=== PATIENT | male | born 1950 | race Caucasian/White ===

== ENCOUNTER 2017-02-03 20:57 | Inpatient (IN) ==
--- NOTE | 2017-02-03 21:16 | Emergency Department Note ---
START Narrative - START START: For this encounter, I have reviewed the resident, IT ADMIN, or PA documentation, treatment plan, and medical decision making; and I have had face to face time with this patient. History source: Patient is unable to provide information for this note. Info was gathered from the patient, hospital staff, the patient's chart. History limitations: Patient condition Medications: As per nurses note 66 yo male presents with SOB with worsening of SCHAFER x2 days. history of anemia with mulitple transfusions in the past which feels similar to today's symptoms. +jaundice on exam but family states skin color hasn't changed within the past couple weeks. No chest pain, cough, fever, diaphoresis, n/v/d. Does not take anticoagulant medications. No history of COPD or asthma. Pt unable to walk more than 10 feet without becoming short of breath. Previous IL had symptoms of diaphoresis and chest pain which he has not had in the past couple days. On physical exam pt had lungs CTAB, heart rate rrr without m/r/g. Pt anemic and has a significant history of cardiac disease, he will be admitted for further care and evaluation. No critical care during the care of this patient.
[2017-02-03 21:43] LABS: Basophils % 0.4 %; Eosinophils # 0.1 K/mcL (0.0-0.6); Eosinophils % 1.2 %; Hematocrit 24.4 % (37.5-50.1); Hemoglobin 7.9 g/dL (12.9-16.9); Immature Granulocytes % 0.7 % (0-4); Lymphocytes # 1.6 K/mcL (0.6-4.6); Lymphocytes % 28.7 %; Mean Corpuscular HGB Conc 32.4 g/dL (31.6-35.5); Mean Corpuscular Hemoglobin 35.4 pg (28.0-33.3); Mean Corpuscular Volume 109.4 fL (83.0-100.0); Monocytes # 0.5 K/mcL (0.0-1.3); Monocytes % 8.5 %; Neutrophils # 3.4 K/mcL (1.6-8.9); Nucleated Red Blood Cells 0.4 /100 WBC (0); Platelet Count 170 K/mcL (140-400); Red Blood Count 2.23 M/mcL (4.19-5.50); Red Cell Distribution Width 15.9 % (11.5-14.5); Segmented Neutrophils % 60.5 %
[2017-02-03 21:46] LABS: INR 1.2; Prothrombin Time 13.3 Seconds (9.4-12.1)
[2017-02-03 21:58] LABS: Alanine Aminotransferase 16 Units/L (0-55); Albumin 3.8 g/dL (3.5-5.0); Albumin/Globulin Ratio 1.1 (1.1-2.2); Alkaline Phosphatase 76 Units/L (38-126); Aspartate Amino Transferase 36 Units/L (5-34); BUN/Creatinine Ratio 19 (6-26); Bilirubin,Direct 0.6 mg/dL (0.0-0.5); Bilirubin,Indirect 3.3 mg/dL (0.0-1.2); Bilirubin,Total 3.9 mg/dL (0.2-1.2); Blood Urea Nitrogen 21 mg/dL (8-26); Calcium 8.7 mg/dL (8.6-10.8); Carbon Dioxide 22 mEq/L (19-29); Chloride 106 mEq/L (98-109); Globulin 3.6 g/dL (2.4-3.5); Glucose 96 mg/dL (70-99); Osmolality,Calculated 289 (280-300); Potassium 3.9 mEq/L (3.5-4.5); Sodium 138 mEq/L (136-145); Total Protein 7.4 g/dL (6.0-8.3); eGFR For African Americans > 60 (> 60); eGFR For Non-African Americans > 60 (> 60)
--- NOTE | 2017-02-03 22:02 | Emergency Department Note ---
Disposition Clinical Impression: Anemia Qualifiers: Anemia type: unspecified type Qualified Code(s): D64.9 - Anemia, unspecified Disposition: Home, Self-Care Condition: Good Time of Disposition: 01:08 General Adult HPI - General Chief complaint: ED Shortness of Breath/Dyspnea Stated complaint: SOB Time Seen by Provider: 02/03/17 21:02 Source: patient Limitations: no limitations Nursing Notes Reviewed: Yes Vital Signs Reviewed: Yes - History of Present Illness HPI Narrative: "Couple day history of shortness of breath when walking." Feeling dizzy when he gets out. States that he felt like this before whenever his hemoglobin was low. Denies any bleeding from anywhere. Pain Scale: 0 - Related Data Home Medications Medication Instructions Recorded Confirmed PHENobarbital [Phenobarbital] 32.4 mg PO QID 02/06/16 02/03/17 Ergocalciferol (VITAMIN D2) 50,000 unit PO FR 08/22/16 02/03/17 [Vitamin D2 (50,000 UNIT)] Metoprolol XL (24 HR) Succ [Toprol 25 mg PO DAILY 08/22/16 02/03/17 Xl] Famotidine [Famotidine] 40 mg PO DAILY 02/03/17 02/03/17 Folic Acid 1 mg PO DAILY 02/03/17 02/03/17 Lisinopril [Zestril] 5 mg PO DAILY 02/03/17 02/03/17 Nitroglycerin [Nitrostat] 0.4 mg SL Q5M PRN 02/03/17 02/03/17 Pravastatin Sodium [Pravachol] 40 mg PO HS 02/03/17 02/03/17 PredniSONE 20 mg PO DAILY 02/03/17 02/03/17 Sulfamethoxazole/Trimeth DS 1 each PO MOFR 02/03/17 02/03/17 [Bactrim DS] Temazepam [Restoril] 7.5 mg PO HS PRN 02/03/17 02/03/17 Valacyclovir [Valtrex] 500 mg PO DAILY 02/03/17 02/03/17 Previous Rx's Medication Instructions Recorded Aspirin 81 mg PO DAILY #30 tab.chew 08/16/16 Prochlorperazine Maleate 10 mg PO Q8HR PRN #0 tablet 08/28/16 [Compazine] Cyanocobalamin (Vitamin B-12) 1,000 mcg PO DAILY #30 tablet 11/04/16 [Vitamin B12] Levothyroxine [Synthroid] 50 mcg PO DAILY #30 tablet 02/03/17 Allergies Allergy/AdvReac Type Severity Reaction Status Date / Time phenytoin [From Dilantin] AdvReac Drowsy Verified 08/21/16 18:47 All systems ED: reviewed and negative except as stated. Constitutional: Denies: fever, chills Eyes: Denies: vision change ENT ED: Denies: congestion Cardiovascular: Denies: chest pain, palpitations, dyspnea on exertion, edema, syncope Respiratory: Denies: cough, dyspnea, wheezes Gastrointestinal: Denies: abdominal pain, nausea, vomiting, diarrhea Genitourinary: Denies: urgency, dysuria, frequency, hematuria Musculoskeletal: Denies: back pain, neck pain, arthralgia, myalgia Integumentary: Denies: rash, abrasion Neurological: Reports: weakness (For the past "couple days"). Denies: headache , vertigo Endocrine: Reports: fatigue Past Medical History - Past Medical History Medical history: Reports: coronary artery disease, hyperlipidemia, hypertension , myocardial infarction, seizures Surgical history: Reports: angioplasty/stent, appendectomy, cholecystectomy Psychiatric history: Reports: no psych history - Social History Smoking Status: Never smoker Smokeless Tobacco Status: No Alcohol use: Reports: none Drug use: Reports: none Physical Exam - General Limitations: no limitations General appearance: alert, in no apparent distress - Head Head exam: atraumatic, normocephalic, normal inspection - Eye Eye exam: Present: normal appearance, PERRL, EOMI, scleral icterus - ENT ENT exam: normal exam, normal oropharynx, mucous membranes moist - Neck Neck exam: Present: normal inspection, full ROM, trachea midline. Absent: tenderness, lymphadenopathy - Chest Chest inspection: Present: normal inspection, symmetric chest wall rise. Absent : tenderness - Respiratory Respiratory exam: Present: normal lung sounds bilaterally. Absent: respiratory distress - Cardiovascular Cardiovascular exam: Present: regular rate, normal rhythm, normal heart sounds - Abdominal Exam Abdominal exam: Present: soft, Non-Tender, normal bowel sounds. Absent: tenderness, distention, guarding, rebound, rigidity, organomegaly - Extremities Exam Extremities exam: Present: normal inspection, full ROM, normal capillary refill. Absent: tenderness, pedal edema - Back Exam Back exam: Present: normal inspection, full ROM. Absent: tenderness, CVA tenderness (R), CVA tenderness (L) - Neurological Exam Neurological exam: Present: alert, oriented X3, normal gait - Psychiatric Psychiatric exam: Present: normal affect, normal mood - Skin Skin exam: Present: warm, dry, intact, other (Patient jaundiced.) Course Course Narrative: Patient ambulated to room without assistance. He is jaundiced while resting in bed. He does not appear short of breath or in any distress. He states he has had a "couple day "history of feeling weak. He states he gets short of breath when he walks. States that he felt like this before whenever he is anemic. Unaware of what his anemia. However on inspection of his past medical history he has hemolytic anemia. This is why he is jaundiced. He has had several blood transfusions before the last one being a year ago. They state that he had a blood transfusion and then had to have some blood removed as well. If he has had hemochromatosis as well. Hemoglobin is 7.9. He is symptomatic with this. He denies any rectal bleeding or hematuria. He denies any hematemesis. He has no abdominal pain on exam. He is otherwise well-appearing. He has no complaints while resting in bed. We will admit Patient for a blood transfusion due to his symptomatic anemia. He is agreeable to this. - Consultations Consultation #1: Dr Chambers accepted Pt in stable condition. Time: 00:31 Vital Signs Temperature 98.0 F 02/03/17 20:58 Pulse Rate 84 02/03/17 20:58 Respiratory Rate 18 02/03/17 20:58 Blood Pressure 147/68 02/03/17 20:58 O2 Sat by Pulse Oximetry 100 02/03/17 20:58 Temperature 97.3 F L 02/04/17 01:35 Pulse Rate 73 02/04/17 01:35 Respiratory Rate 18 02/04/17 01:35 Blood Pressure 124/71 02/04/17 01:35 O2 Sat by Pulse Oximetry 96 02/04/17 01:35 Oxygen Delivery Oxygen Delivery Room Air Medical Decision Making - Medical Records Medical records reviewed: Yes I reviewed the patient's medical records. - Lab Data Lab results reviewed: Yes I reviewed the patient's lab results. Result diagrams: 02/03/17 21:35 02/03/17 21:35 Lab Results 02/03/17 02/03/17 02/03/17 Range/Units 21:35 21:35 21:35 WBC 5.7 (4.3-11.1) K/mcL RBC 2.23 L (4.19-5.50) M/mcL Hgb 7.9 L (12.9-16.9) g/dL Hct 24.4 L (37.5-50.1) % MCV 109.4 H (83.0-100.0) fL MCH 35.4 H (28.0-33.3) pg MCHC 32.4 (31.6-35.5) g/dL RDW 15.9 H (11.5-14.5) % Plt Count 170 (140-400) K/mcL MPV 9.0 L (9.4-12.4) fL Immature Gran % 0.7 (0-4) % Seg Neutrophils % 60.5 % Lymphocytes % 28.7 % Monocytes % 8.5 % Eosinophils % 1.2 % Basophils % 0.4 % Neutrophils # 3.4 (1.6-8.9) K/mcL Lymphocytes # 1.6 (0.6-4.6) K/mcL Monocytes # 0.5 (0.0-1.3) K/mcL Eosinophils # 0.1 (0.0-0.6) K/mcL Basophils # 0.0 (0.0-0.2) K/mcL Nucleated RBCs/100 WBC 0.4 H (0) /100 WBC PT (9.4-12.1) Seconds INR APTT (26.0-36.0) Seconds Sodium 138 (136-145) mEq/L Potassium 3.9 (3.5-4.5) mEq/L Chloride 106 (98-109) mEq/L Carbon Dioxide 22 (19-29) mEq/L BUN 21 (8-26) mg/dL Creatinine 1.11 (0.72-1.25) mg/dL Est GFR ( Amer) > 60 (> 60) Est GFR (Non-Af Amer) > 60 (> 60) BUN/Creatinine Ratio 19 (6-26) Glucose 96 (70-99) mg/dL Calculated Osmolality 289 (280-300) Calcium 8.7 (8.6-10.8) mg/dL Total Bilirubin 3.9 H (0.2-1.2) mg/dL Direct Bilirubin 0.6 H (0.0-0.5) mg/dL Indirect Bilirubin 3.3 H (0.0-1.2) mg/dL AST 36 H (5-34) Units/L ALT 16 (0-55) Units/L Alkaline Phosphatase 76 (38-126) Units/L Troponin I 0.00 (0-0.03) ng/mL B-Natriuretic Peptide (0-100) pg/mL Serum Total Protein 7.4 (6.0-8.3) g/dL Albumin 3.8 (3.5-5.0) g/dL Globulin 3.6 H (2.4-3.5) g/dL Albumin/Globulin Ratio 1.1 (1.1-2.2) Urine Color (Yellow) Urine Clarity (Clear) Urine pH (5.0-8.0) pH Units Ur Specific [place] (1.010-1.025) Urine Protein (Neg-Trace) mg/dL Urine Glucose (UA) (Normal) mg/dL Urine Ketones (Negative) mg/dL Urine Blood (Negative) Urine Nitrite (Negative) Urine Bilirubin (Negative) Urine Urobilinogen (Normal) mg/dL Ur Leukocyte Esterase (Negative) Urine Microscopic WBC (0-3) per hpf Ur Squamous Epith Cells (None-Few) per lpf Urine Bacteria (None-Few) per hpf Urine Mucus (Few) Ur Culture Indicated? (NO) Stool Occult Blood (Negative) 02/03/17 02/03/17 02/03/17 Range/Units 21:35 21:35 23:43 WBC (4.3-11.1) K/mcL RBC (4.19-5.50) M/mcL Hgb (12.9-16.9) g/dL Hct (37.5-50.1) % MCV (83.0-100.0) fL MCH (28.0-33.3) pg MCHC (31.6-35.5) g/dL RDW (11.5-14.5) % Plt Count (140-400) K/mcL MPV (9.4-12.4) fL Immature Gran % (0-4) % Seg Neutrophils % % Lymphocytes % % Monocytes % % Eosinophils % % Basophils % % Neutrophils # (1.6-8.9) K/mcL Lymphocytes # (0.6-4.6) K/mcL Monocytes # (0.0-1.3) K/mcL Eosinophils # (0.0-0.6) K/mcL Basophils # (0.0-0.2) K/mcL Nucleated RBCs/100 WBC (0) /100 WBC PT 13.3 H (9.4-12.1) Seconds INR 1.2 APTT 34.0 (26.0-36.0) Seconds Sodium (136-145) mEq/L Potassium (3.5-4.5) mEq/L Chloride (98-109) mEq/L Carbon Dioxide (19-29) mEq/L BUN (8-26) mg/dL Creatinine (0.72-1.25) mg/dL Est GFR ( Amer) (> 60) Est GFR (Non-Af Amer) (> 60) BUN/Creatinine Ratio (6-26) Glucose (70-99) mg/dL Calculated Osmolality (280-300) Calcium (8.6-10.8) mg/dL Total Bilirubin (0.2-1.2) mg/dL Direct Bilirubin (0.0-0.5) mg/dL Indirect Bilirubin (0.0-1.2) mg/dL AST (5-34) Units/L ALT (0-55) Units/L Alkaline Phosphatase (38-126) Units/L Troponin I (0-0.03) ng/mL B-Natriuretic Peptide 26 (0-100) pg/mL Serum Total Protein (6.0-8.3) g/dL Albumin (3.5-5.0) g/dL Globulin (2.4-3.5) g/dL Albumin/Globulin Ratio (1.1-2.2) Urine Color Yellow (Yellow) Urine Clarity Clear (Clear) Urine pH 5.5 (5.0-8.0) pH Units Ur Specific [place] 1.025 (1.010-1.025) Urine Protein 30 H (Neg-Trace) mg/dL Urine Glucose (UA) Normal (Normal) mg/dL Urine Ketones Negative (Negative) mg/dL Urine Blood Trace-lysed H (Negative) Urine Nitrite Positive A (Negative) Urine Bilirubin Small H (Negative) Urine Urobilinogen Normal (Normal) mg/dL Ur Leukocyte Esterase Negative (Negative) Urine Microscopic WBC 0-3 (0-3) per hpf Ur Squamous Epith Cells Few (None-Few) per lpf Urine Bacteria Moderate H (None-Few) per hpf Urine Mucus Few (Few) Ur Culture Indicated? YES A (NO) Stool Occult Blood (Negative) 02/04/17 Range/Units 00:31 WBC (4.3-11.1) K/mcL RBC (4.19-5.50) M/mcL Hgb (12.9-16.9) g/dL Hct (37.5-50.1) % MCV (83.0-100.0) fL MCH (28.0-33.3) pg MCHC (31.6-35.5) g/dL RDW (11.5-14.5) % Plt Count (140-400) K/mcL MPV (9.4-12.4) fL Immature Gran % (0-4) % Seg Neutrophils % % Lymphocytes % % Monocytes % % Eosinophils % % Basophils % % Neutrophils # (1.6-8.9) K/mcL Lymphocytes # (0.6-4.6) K/mcL Monocytes # (0.0-1.3) K/mcL Eosinophils # (0.0-0.6) K/mcL Basophils # (0.0-0.2) K/mcL Nucleated RBCs/100 WBC (0) /100 WBC PT (9.4-12.1) Seconds INR APTT (26.0-36.0) Seconds Sodium (136-145) mEq/L Potassium (3.5-4.5) mEq/L Chloride (98-109) mEq/L Carbon Dioxide (19-29) mEq/L BUN (8-26) mg/dL Creatinine (0.72-1.25) mg/dL Est GFR ( Amer) (> 60) Est GFR (Non-Af Amer) (> 60) BUN/Creatinine Ratio (6-26) Glucose (70-99) mg/dL Calculated Osmolality (280-300) Calcium (8.6-10.8) mg/dL Total Bilirubin (0.2-1.2) mg/dL Direct Bilirubin (0.0-0.5) mg/dL Indirect Bilirubin (0.0-1.2) mg/dL AST (5-34) Units/L ALT (0-55) Units/L Alkaline Phosphatase (38-126) Units/L Troponin I (0-0.03) ng/mL B-Natriuretic Peptide (0-100) pg/mL Serum Total Protein (6.0-8.3) g/dL Albumin (3.5-5.0) g/dL Globulin (2.4-3.5) g/dL Albumin/Globulin Ratio (1.1-2.2) Urine Color (Yellow) Urine Clarity (Clear) Urine pH (5.0-8.0) pH Units Ur Specific [place] (1.010-1.025) Urine Protein (Neg-Trace) mg/dL Urine Glucose (UA) (Normal) mg/dL Urine Ketones (Negative) mg/dL Urine Blood (Negative) Urine Nitrite (Negative) Urine Bilirubin (Negative) Urine Urobilinogen (Normal) mg/dL Ur Leukocyte Esterase (Negative) Urine Microscopic WBC (0-3) per hpf Ur Squamous Epith Cells (None-Few) per lpf Urine Bacteria (None-Few) per hpf Urine Mucus (Few) Ur Culture Indicated? (NO) Stool Occult Blood Negative (Negative)
[2017-02-03 23:54] LABS: Bilirubin,Urine Small (Negative); Blood,Urine Trace-lysed (Negative); Clarity,Urine Clear (Clear); Color,Urine Yellow (Yellow); Glucose,Urine (UA) Normal (Normal); Ketones,Urine Negative (Negative); Leukocyte Esterase,Urine Negative (Negative); Nitrite,Urine Positive (Negative); PH,Urine 5.5 pH Units (5.0-8.0); Protein,Urine 30 mg/dL (Neg-Trace); Specific Gravity,Urine 1.025 (1.010-1.025); Urobilinogen,Urine Normal (Normal)
[2017-02-04 00:19] LABS: Bacteria,Urine Moderate per hpf (None-Few); Mucus,Urine Few (Few); Squamous Epithelial Cell,Urine Few per lpf (None-Few); WBC,Urine 0-3 per hpf (0-3)
[2017-02-04] MEDS ORDERED: Naloxone 0.4 MG/ML INJ IVP PRN (05:47)
[2017-02-04] MEDS ORDERED: Nitroglycerin 0.4 MG TAB.SUBL SL PRN (05:51)
[2017-02-04] MEDS ORDERED: Temazepam 15 MG CAPSULE PO PRN (05:51)
--- NOTE | 2017-02-04 05:58 | Internal Med History&Physical ---
Date of Encounter: 02/04/17 Time of Encounter: 04:30 Assessment and Plan (1) UTI (urinary tract infection) Current visit: Yes Status: Acute Urinalysis is abnormal. Urine culture and blood cultures are pending. Empiric treatment with ceftriaxone. Change antibiotics based on sensitivities. Qualifiers: Urinary tract infection type: site unspecified Hematuria presence: without hematuria Qualified Code(s): N39.0 - Urinary tract infection, site not specified (2) Anemia Current visit: Yes Status: Acute Patient has history of autoimmune hemolytic anemia, which was refractory to prednisone and responded to Rituxan. No blood transfusion at this time. We will consult crop adjuster/oncologist for further advice. Continue his home dose of prednisone meanwhile. Qualifiers: Anemia type: acquired or hereditary hemolytic anemia Hemolytic anemia type : acquired, autoimmune, other Qualified Code(s): D59.1 - Other autoimmune hemolytic anemias (3) Autoimmune hemolytic anemia Current visit: Yes Status: Acute Patient has history of autoimmune hemolytic anemia, which was refractory to prednisone and responded to Rituxan. No blood transfusion at this time. We will consult crop adjuster/oncologist for further advice. Continue his home dose of prednisone meanwhile. We will check LDH and reticulocyte account. (4) CAD (coronary artery disease) Current visit: Yes Status: Chronic Qualifiers: Coronary Disease-Associated Artery/Lesion type: [place] artery [place] vs. transplanted heart: [place] heart Associated angina: without angina Qualified Code(s): I25.10 - Atherosclerotic heart disease of [place] coronary artery without angina pectoris (5) Shortness of breath Current visit: Yes Status: Acute Possibly due to anemia. Will check d-dimer to exclude pulmonary embolism. Chest x-ray is not significanlty abnormal. Internal Medicine - H&P: HPI Chief complaint: Shortness of breath Admitted From: Emergency Dept Plans for Post Hospital Care: Home History of present illness: Mr. 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 He presents to the emergency department with duct with a history of progressive shortness of breath. It was shortness of breath on minimal exertion. Denies any shortness of breath at rest. Denies chest pain, cough, expectation, fever, chills, nausea, vomiting, abdominal pain , dysuria, hematuria,, melena, hematochezia, hematemesis. He was evaluated in the emergency department and was noted to have hemoglobin of 7.9. He is admitted to Hospitalist service for further workup and management. Family history: Heart attack in his mother Past Med Surg Social Fam HX - Past Medical History Medical history: coronary artery disease, hyperlipidemia, hypertension, myocardial infarction, seizures Psychiatric history: no psych history - Past Surgical History Surgical History: angioplasty/stent, appendectomy, cholecystectomy - Social History Smoking Status: Never smoker Smokeless Tobacco Status: No Alcohol use: none Drug use: none - Family History Son Adopted: No Family Member Ethnicity: Non- Living Status: Still Living Hx Family Cardiac Disorders: Yes Hx Family Respiratory Disorders: No Hx Family Cancer: No Hx Family GI Disorders: Yes Hx Family Endocrine Disorder: Yes Hx Family Neuromuscular Disorders: No Hx Family Neurologic Disorders: No Hx Family HEENT Disorders: No Hx Family Autoimmune Disorders: No Mother Adopted: No Family Member Ethnicity: Non- Living Status: Hx Family Cardiac Disorders: Yes ([place]) Hx Family Respiratory Disorders: No Hx Family Cancer: Yes Hx Family GI Disorders: No Hx Family Endocrine Disorder: No Hx Family Neuromuscular Disorders: No Hx Family Neurologic Disorders: No Hx Family HEENT Disorders: No Hx Family Autoimmune Disorders: No Internal Medicine - H&P: Meds PHENobarbital [Phenobarbital] 32.4 mg PO QID 02/06/16 [History] Aspirin 81 mg PO DAILY #30 tab.chew 08/16/16 [Rx] Ergocalciferol (VITAMIN D2) [Vitamin D2 (50,000 UNIT)] 50,000 unit PO FR [History] Metoprolol XL (24 HR) Succ [Toprol Xl] 25 mg PO DAILY 08/22/16 [History] Prochlorperazine Maleate [Compazine] 10 mg PO Q8HR PRN #0 tablet 08/28/16 [Rx] Cyanocobalamin (Vitamin B-12) [Vitamin B12] 1,000 mcg PO DAILY #30 tablet [Rx] Famotidine [Famotidine] 40 mg PO DAILY 02/03/17 [History] Folic Acid 1 mg PO DAILY 02/03/17 [History] Levothyroxine [Synthroid] 50 mcg PO DAILY #30 tablet 02/03/17 [Rx] Lisinopril [Zestril] 5 mg PO DAILY 02/03/17 [History] Nitroglycerin [Nitrostat] 0.4 mg SL Q5M PRN 02/03/17 [History] Pravastatin Sodium [Pravachol] 40 mg PO HS 02/03/17 [History] PredniSONE 20 mg PO DAILY 02/03/17 [History] Sulfamethoxazole/Trimeth DS [Bactrim DS] 1 each PO MOFR 02/03/17 [History] Temazepam [Restoril] 7.5 mg PO HS PRN 02/03/17 [History] Valacyclovir [Valtrex] 500 mg PO DAILY 02/03/17 [History] Allergies phenytoin [From Dilantin] Adverse Reaction (Verified 08/21/16 18:47) Drowsy All Systems PM: A 10-system review of systems was performed and is negative for pertinent findings except as documented above in the HPI. - Constitutional Vitals: Temp Pulse Resp BP Pulse Ox 98.0 F 67 14 100/64 98 02/04/17 04:26 02/04/17 04:26 02/04/17 04:26 02/04/17 04:26 02/04/17 04:26 Exam: General: Not in acute distress at the time of my evaluation HEENT: Oral mucosa is moist. conjunctival palor present. No scleral icterus Neck: No obvious neck swellings Lungs: Clear to auscultation Cardiac: Regular rate and rhythm. Systolic murmur present Abdomen: Soft, non tender. Bowel sounds present Genitourinary: No miller catheter Neurological: Alert and oriented. No gross localizing deficits Psych: Not aggressive or agitated Extremities: no significant leg edema Skin: No generalized rash Internal Med - H&P Results - Labs CBC & Chem 7: 02/03/17 21:35 02/03/17 21:35 - EKG Data -: EKG Interpreted by Myself EKG shows normal: sinus rhythm Rate: normal - Impressions ITS Impressions Chest X-Ray 02/03/17 21:12 IMPRESSION: Stable cardiomegaly with mild perihilar vascular congestion without overt pulmonary edema. No other active cardiopulmonary disease. D/ / Kenn Miller MD / Kenn Miller MD Interpreting Provider: Kenn Miller MD
[2017-02-04] MEDS ORDERED: Sulfamethoxazole/Trimeth DS 1 EACH TABLET PO SCH (06:00)
[2017-02-04 06:51] LABS: BUN/Creatinine Ratio 20 (6-26); Blood Urea Nitrogen 20 mg/dL (8-26); Calcium 8.4 mg/dL (8.6-10.8); Carbon Dioxide 24 mEq/L (19-29); Chloride 105 mEq/L (98-109); Glucose 95 mg/dL (70-99); Osmolality,Calculated 288 (280-300); Potassium 3.6 mEq/L (3.5-4.5); Sodium 138 mEq/L (136-145); eGFR For African Americans > 60 (> 60); eGFR For Non-African Americans > 60 (> 60)
[2017-02-04 06:53] LABS: Lactate Dehydrogenase 492 Units/L (159-327)
[2017-02-04 06:56] LABS: Basophils % 0.4 %; Eosinophils # 0.1 K/mcL (0.0-0.6); Eosinophils % 2.3 %; Hematocrit 22.5 % (37.5-50.1); Hemoglobin 7.3 g/dL (12.9-16.9); Immature Granulocytes % 0.8 % (0-4); Lymphocytes # 1.5 K/mcL (0.6-4.6); Lymphocytes % 31.9 %; Mean Corpuscular HGB Conc 32.4 g/dL (31.6-35.5); Mean Corpuscular Hemoglobin 35.4 pg (28.0-33.3); Mean Corpuscular Volume 109.2 fL (83.0-100.0); Mean Platelet Volume 8.6 fL (9.4-12.4); Monocytes # 0.4 K/mcL (0.0-1.3); Neutrophils # 2.7 K/mcL (1.6-8.9); Nucleated Red Blood Cells 0.4 /100 WBC (0); Platelet Count 137 K/mcL (140-400); Red Blood Count 2.06 M/mcL (4.19-5.50); Red Cell Distribution Width 15.8 % (11.5-14.5); Retculocyte # 0.41 M/mcL (0.05-0.10); Segmented Neutrophils % 55.6 %
[2017-02-04 06:57] LABS: Reticulocyte % 19.4 % (1.6-2.8)
[2017-02-04 06:58] LABS: Immature Reticulocyte % 34.6 % (11.0-38.0)
[2017-02-04 07:14] LABS: Thyroid Stimulating Hormone 2.977 mcIU/mL (0.350-4.840)
[2017-02-04] MEDS: Folic Acid 1 MG TABLET PO SCH (08:14)
[2017-02-04] MEDS: Cyanocobalamin (B-12) 1,000 MCG TABLET PO SCH (08:14)
[2017-02-04] MEDS: Metoprolol XL (24 HR) Succ 25 MG TAB.ER.24H PO SCH (08:14)
[2017-02-04] MEDS: valACYclovir 500 MG TABLET PO SCH (08:14)
[2017-02-04] MEDS: Aspirin 81 MG TAB.CHEW PO SCH (08:14)
[2017-02-04] MEDS: Famotidine 20 MG TABLET PO SCH (08:15)
[2017-02-04] MEDS: PHENobarbital 32.4 MG TABLET PO SCH ×4 (08:23→21:17)
[2017-02-04] MEDS ORDERED: predniSONE 20 MG TABLET PO SCH (09:00)
--- NOTE | 2017-02-04 17:10 | Event Note ---
Date of Encounter: 02/04/17 Time of Encounter: 12:30 Patient is seen and examined. On examination, patient resting supine in bed. Patient currently denies pain or shortness of breath. On examination, lungs clear with good aeration. Abdomen distended on the left with palpable spleen and marked tenderness with light palpation. Patient stating he was scheduled to have a splenectomy however at [facility], he was improving so they decided to hold off for now. Patient denies any change to the girth of his abdomen. Patient is jaundiced on examination, will obtain bilirubin levels. Elevated d- dimer noted however CTA negative for PE. Retic count up as well as LDH but not as elevated as they have been in the recent past. I spoke to Dr. Rush of oncology who is his main oncologist and he will see the patient today. Hemoccult negative. Patient and voicing frustration over why he is not getting a blood transfusion and reasoning for not transfusing him at this time was covered in depth and will be further covered by oncology. In short, blood transfusions would prove ineffective, defer to oncology. Patient is at very high risk for decompensation and will remain inpatient status. He is currently too weak and needs to remain in the hospital for further oncologic workup. ITS Impressions Chest X-Ray 02/03/17 21:12 IMPRESSION: Stable cardiomegaly with mild perihilar vascular congestion without overt pulmonary edema. No other active cardiopulmonary disease. D/ / Kenn Miller MD / Kenn Miller MD Interpreting Provider: Kenn Miller MD Chest CTA 02/04/17 08:22 IMPRESSION: No CT evidence pulmonary embolism. Small hiatal hernia. D/ / Haven Carrion Cha, MD / Haven Carrion Cha, MD Interpreting Provider: Haven Carrion Cha, MD
[2017-02-04] MEDS ORDERED: Acetaminophen 325 MG TABLET PO PRN (17:12)
[2017-02-04] MEDS ORDERED: *HR* HYDROcodone/Acet 5/325 mg TABLET PO PRN (17:12)
[2017-02-04] MEDS ORDERED: *HR* Morphine 2 MG/ML SYRINGE IVP PRN (17:12)
[2017-02-04] MEDS ORDERED: Ondansetron 4 MG/2 ML VIAL IVP PRN (17:12)
--- NOTE | 2017-02-04 18:04 | Electrocardiograph Report ---
[place] [id number] Test Date: 2017-02-03 Pat Name: Jag Salcedo Department: 103 Room: [facility] Gender: M Lead Loader: : 1950 Requested By: Shannon Lester Order Number: [id number] Reading MD: Sri Burroughs Measurements Intervals [place] Rate: 73 P: 26 WA: 168 QRS: 17 QRSD: 88 T: 31 QT: 378 QTc: 404 Interpretive Statements SINUS RHYTHM Electronically Signed On 02-04-2017 18:02:38 EST by Sri Burroughs
--- NOTE | 2017-02-04 18:19 | Oncology Inp Consult Note ---
Date of Encounter: 02/04/17 Time of Encounter: 18:16 Assessment and Plan (1) Autoimmune hemolytic anemia Status: Acute Assessment and plan: He has recurrence of autoimmune hemolytic anemia. Had an excellent response to Rituxan but short-lived only for 3 months. At this time start him on Solu-Medrol 40 mg IV twice a day. We will increase to 40 mg IV 3 times a day assess response is not adequate We will do a slow taper once hemoglobin improves. We will keep him at 60 mg prednisone daily for 2 weeks on discharge At this time he will be a candidate for splenectomy He would benefit from vaccinations including pneumococcal meningococcal vaccine and H. influenzae B If his anemia is refractory would consider danazol 200 mg by mouth twice a day - Data of Consult Patient: known to practice within the last 3 years Requesting Physician: Stacy Raphael Primary Care Provider: Moe Maya MD - Consult Narrative History of present illness: Mr. Salcedo is a 66 year old male hospitalized with shortness of breath. CT angiogram chest 02/04/2017 was negative for PE. Showed small hiatal hernia He is admitted with hemoglobin around 7.3 MCV 109. Indirect hyperbilirubinemia around 3.9 Elevated LDH of 492 consistent with recurrence of autoimmune hemolytic anemia He had excellent response to Rituxan which she completed October 2016 as mentioned below. His duration of response was only short-lived at 3 months Hematological history Autoimmune hemolytic anemia since January 2016. 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 January 2016 hemoglobin around 9 dropped to 7.1 on 2015 at lab [facility]. MCV 112. Platelets [address] abdomen and pelvis with contrast 08/21/2016 showed splenomegaly craniocaudal 16 cm and a small lymph node in the splenic hilum and millimeter which is nonspecific arise no evidence of lymphoma CT chest negative January 2016. Echo on 08/10/16 shows LVEF 65% He was hospitalized when I saw him on 08/09/2016 hemoglobin of 4.7. He did not respond to transfusion and after 3 units hemoglobin came up to 5.3. Workup showed autoimmune hemolytic anemia with the YAMINI 4+ and LDH elevated to 2200. No change in medication for last 6 months. Phenobarbital does not cause or immune or drug-induced hemolysis Liver enzymes are normal LDH went up to 2200 08/28/2016 Workup showed 0.6 g IgG lambda and serum free light chains mildly elevated to 4 Follic acid improved from 3 range to 12 with folic acid supplement B12 low at 178 which improved with supplement And he had a bone marrow biopsy done at [facility] 08/30/2016 which showed 90% cellularity with trilineage hematopoiesis No evidence of lymphoma or myeloma Splenectomy has been considered and he got 1 dose of pneumonia vaccine. Spleen size apparently went down at [facility]. The size was reported at [address] and pelvis on 08/30/2016 Splenectomy not done as he was getting better Rituxan 375 mg/m weekly 8 doses cycle one on 09/16/2016. 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 Iron saturation high with high ferritin on 1200. One point considered phlebotomy because of high hemoglobin and hemachromatosis Past medical history Chronic kidney disease stage II to stage III Coronary artery disease/anterolateral [place] in status post a drug-eluting stent left anterior descending artery in 2011. Apparently he had another stent at that time. Currently he is on aspirin but not on Plavix which was discontinued , denied diabetes Seizure disorder since age 10. He follows up with Dr. Collins Davis. Last seizure episode was 2 years ago. Currently well controlled on phenobarbital Hyperlipidemia Vitamin D normal at 34. PSA 0.8. Albumin 4.4 with globulin 3.3 Past surgical history Here acute cholecystitis January 2016 and had cholecystectomy at [facility] Family history mother had heart attack and so sister Aunt had uterine cancer next Personal history Number smoked Alcohol No drug abuse Disabled Used to work in [employer] Lives in [place] with and 4 childre Past Med Surg Social Fam HX - Past Medical History Medical history: coronary artery disease, hyperlipidemia, hypertension, myocardial infarction, seizures Psychiatric history: no psych history - Past Surgical History Surgical History: angioplasty/stent, appendectomy, cholecystectomy - Social History Smoking Status: Never smoker Smokeless Tobacco Status: No Alcohol use: none Drug use: none - Family History Son Adopted: No Family Member Ethnicity: Non- Living Status: Still Living Hx Family Cardiac Disorders: Yes Hx Family Respiratory Disorders: No Hx Family Cancer: No Hx Family GI Disorders: Yes Hx Family Endocrine Disorder: Yes Hx Family Neuromuscular Disorders: No Hx Family Neurologic Disorders: No Hx Family HEENT Disorders: No Hx Family Autoimmune Disorders: No Mother Adopted: No Family Member Ethnicity: Non- Living Status: Hx Family Cardiac Disorders: Yes ([place]) Hx Family Respiratory Disorders: No Hx Family Cancer: Yes Hx Family GI Disorders: No Hx Family Endocrine Disorder: No Hx Family Neuromuscular Disorders: No Hx Family Neurologic Disorders: No Hx Family HEENT Disorders: No Hx Family Autoimmune Disorders: No Medications and Allergies PHENobarbital [Phenobarbital] 32.4 mg PO QID 02/06/16 [History] Aspirin 81 mg PO DAILY #30 tab.chew 08/16/16 [Rx] Ergocalciferol (VITAMIN D2) [Vitamin D2 (50,000 UNIT)] 50,000 unit PO FR [History] Metoprolol XL (24 HR) Succ [Toprol Xl] 25 mg PO DAILY 08/22/16 [History] Prochlorperazine Maleate [Compazine] 10 mg PO Q8HR PRN #0 tablet 08/28/16 [Rx] Cyanocobalamin (Vitamin B-12) [Vitamin B12] 1,000 mcg PO DAILY #30 tablet [Rx] Famotidine [Famotidine] 40 mg PO DAILY 02/03/17 [History] Folic Acid 1 mg PO DAILY 02/03/17 [History] Levothyroxine [Synthroid] 50 mcg PO DAILY #30 tablet 02/03/17 [Rx] Lisinopril [Zestril] 5 mg PO DAILY 02/03/17 [History] Nitroglycerin [Nitrostat] 0.4 mg SL Q5M PRN 02/03/17 [History] Pravastatin Sodium [Pravachol] 40 mg PO HS 02/03/17 [History] PredniSONE 20 mg PO DAILY 02/03/17 [History] Sulfamethoxazole/Trimeth DS [Bactrim DS] 1 each PO MOFR 02/03/17 [History] Temazepam [Restoril] 7.5 mg PO HS PRN 02/03/17 [History] Valacyclovir [Valtrex] 500 mg PO DAILY 02/03/17 [History] Allergies phenytoin [From Dilantin] Adverse Reaction (Verified 08/21/16 18:47) Drowsy Review of systems: Exertional shortness of breath, fatigue. Denied bleeding Oncology - Exam - Constitutional Vitals: Temp Pulse Resp BP Pulse Ox 97.8 F 77 16 90/51 96 02/04/17 15:21 02/04/17 15:21 02/04/17 15:21 02/04/17 15:21 02/04/17 15:21 Exam: GENERAL: Alert and oriented, fatigued. Jaundiced Mental Status: Affect appropriate for circumstances HEENT: Sclerae anicteric. No mucositis or thrush. No other oral or pharyngeal lesions or erythema. Skin: No rashes or petechiae. No evidence of skin malignancy Lymph nodes: No cervical, supraclavicular, axillary, or inguinal adenopathy. Lungs: Clear to auscultation and percussion bilaterally. Cardiovascular: Regular rate and rhythm. No gallops, murmurs, or rubs. Abdomen: Soft, nontender; no organomegaly or masses palpable. Extremities: No edema. No calf swelling or tenderness. No joint deformity. Neurologic: Alert, cranial nerves II-XII intact; normal gait; no focal weakness or sensory abnormalities. Consult Discharge Plan - Plan Referrals: Moe Maya MD [Primary Care Provider] -
[2017-02-04] MEDS: MethylPREDNISolone 40 MG/ML VIAL IVP SCH (18:57)
[2017-02-05 05:11] LABS: Basophils % 0.1 %; Hematocrit 22.8 % (37.5-50.1); Hemoglobin 7.2 g/dL (12.9-16.9); Immature Granulocytes % 0.5 % (0-4); Immature Reticulocyte % 37.9 % (11.0-38.0); Lymphocytes % 19.4 %; Mean Corpuscular HGB Conc 31.6 g/dL (31.6-35.5); Mean Corpuscular Volume 110.7 fL (83.0-100.0); Mean Platelet Volume 9.5 fL (9.4-12.4); Monocytes # 0.3 K/mcL (0.0-1.3); Monocytes % 3.1 %; Nucleated Red Blood Cells 0.3 /100 WBC (0); Platelet Count 168 K/mcL (140-400); Red Blood Count 2.06 M/mcL (4.19-5.50); Red Cell Distribution Width 15.5 % (11.5-14.5); Retculocyte # 0.39 M/mcL (0.05-0.10); Segmented Neutrophils % 76.9 %
[2017-02-05 05:26] LABS: Albumin 3.5 g/dL (3.5-5.0); Albumin/Globulin Ratio 1.1 (1.1-2.2); Bilirubin,Direct 0.6 mg/dL (0.0-0.5); Bilirubin,Indirect 0.9 mg/dL (0.0-1.2); Calcium 8.8 mg/dL (8.6-10.8); Globulin 3.3 g/dL (2.4-3.5); Potassium 4.6 mEq/L (3.5-4.5); Total Protein 6.8 g/dL (6.0-8.3)
[2017-02-05 05:29] LABS: Bilirubin,Total 1.5 mg/dL (0.2-1.2)
[2017-02-05 05:30] LABS: Lymphocytes # 1.6 K/mcL (0.6-4.6); Neutrophils # 6.2 K/mcL (1.6-8.9)
[2017-02-05 05:33] LABS: Platelet Estimate Normal (Normal)
[2017-02-05 05:34] LABS: Macrocytosis Present (Not Present); Polychromasia 1+ (Not Present)
[2017-02-05] MEDS: MethylPREDNISolone 40 MG/ML VIAL IVP SCH ×2 (05:59→18:20)
[2017-02-05] MEDS: valACYclovir 500 MG TABLET PO SCH (09:05)
[2017-02-05] MEDS: PHENobarbital 32.4 MG TABLET PO SCH ×4 (09:05→20:05)
[2017-02-05] MEDS: Metoprolol XL (24 HR) Succ 25 MG TAB.ER.24H PO SCH (09:05)
[2017-02-05] MEDS: Famotidine 20 MG TABLET PO SCH (09:06)
[2017-02-05] MEDS: Cyanocobalamin (B-12) 1,000 MCG TABLET PO SCH (09:06)
[2017-02-05] MEDS: Aspirin 81 MG TAB.CHEW PO SCH (09:06)
[2017-02-05] MEDS: Folic Acid 1 MG TABLET PO SCH (09:06)
[2017-02-05] MEDS ORDERED: Pneumococcal 23 Valent Vaccine 25 MCG/0.5 ML VIAL IM ONE (11:37)
[2017-02-05] MEDS ORDERED: [UNRECOGNIZED DRUG - OTHER] IM ONE (11:39)
--- NOTE | 2017-02-05 19:43 | Internal Med Progress Note ---
Date of Encounter: 02/05/17 Time of Encounter: 10:45 - Assessment and plan (1) Autoimmune hemolytic anemia Current Visit: Yes Status: Acute Assessment and plan: Continue solumedrol. Acute renal injury may be related to Bactrim-induced interstitial nephritis or crystalluria. Urine culture reports no bacteria growth. Hold Bactrim DS, start IVF NS @ 100. IM Pentacel for Hemophilus vaccination, he received pneumococcal vaccination last year. Consult surgery for interval spenectomy giving he is somewhat refractile to cortiosteroid and response to Rituximab short-lived. Continue other care. BMP and CBC in the AM. (2) Shortness of breath Current Visit: Yes Status: Acute (3) UTI (urinary tract infection) Current Visit: Yes Status: Acute Qualifiers: Urinary tract infection type: site unspecified Hematuria presence: without hematuria Qualified Code(s): N39.0 - Urinary tract infection, site not specified (4) CAD (coronary artery disease) Current Visit: Yes Status: Chronic Qualifiers: Coronary Disease-Associated Artery/Lesion type: [place] artery [place] vs. transplanted heart: [place] heart Associated angina: without angina Qualified Code(s): I25.10 - Atherosclerotic heart disease of [place] coronary artery without angina pectoris (5) Hypertension Current Visit: No Status: Chronic Qualifiers: Hypertension type: essential hypertension Qualified Code(s): I10 - Essential (primary) hypertension (6) Acute renal injury Current Visit: Yes Status: Acute - Subjective Interval history: Mr. 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 Hb=7.9 at admission. IV Solumedrol initiated by trucksmith. HH=7.2 this morning. He still feel SOB. He received pneumococcal vaccination last year. I has been evaluated by trucksmith. Recommendations appreciated. - Constitutional Vitals: Temp Pulse Resp BP Pulse Ox 97.3 F L 63 16 99/59 98 02/05/17 15:33 02/05/17 15:33 02/05/17 15:33 02/05/17 15:33 02/05/17 15:33 Exam: Not in distress, mild pale, anicteric, afebrile, acyanotic No JVD. no cervical lymphadenopathy Chest is clear. Heart: RRR, HS1/2 Abdomen: soft, non-tender, no masses MANUFACTURING STOREPERSON: aao x 3. Skin: no purpura No bleeding noted from any other orifice. Internal Medicine: Result - Labs CBC & Chem 7: 02/05/17 04:18 02/05/17 04:18 Labs: Short CBC 02/05/17 Range/Units 04:18 WBC 8.0 D (4.3-11.1) K/mcL Hgb 7.2 L (12.9-16.9) g/dL Hct 22.8 L (37.5-50.1) % Plt Count 168 (140-400) K/mcL Neutrophils # 6.2 (1.6-8.9) K/mcL BMP 02/05/17 04:18 Sodium 135 L Potassium 4.6 H D Chloride 105 Carbon Dioxide 21 BUN 29 H Creatinine 1.48 H Glucose 128 H Calcium 8.8 Liver Function 02/05/17 Range/Units 04:18 Total Bilirubin 1.5 H D (0.2-1.2) mg/dL Direct Bilirubin 0.6 H (0.0-0.5) mg/dL AST 27 (5-34) Units/L ALT 14 (0-55) Units/L Alkaline Phosphatase 64 (38-126) Units/L Albumin 3.5 (3.5-5.0) g/dL - ABG Interpretation ABG results: PT/INR, D-dimer PT 13.3 Seconds (9.4-12.1) H 02/03/17 21:35 D-Dimer 917 ng/mLFEU (0-500) H 02/04/17 06:26 Consult Discharge Plan - Plan Referrals: Moe Maya MD [Primary Care Provider] -
[2017-02-05] MEDS: 0.9 % Sodium Chloride 1,000 ML IVC SCH (20:05)
[2017-02-06 04:33] LABS: Hematocrit 22.9 % (37.5-50.1); Hemoglobin 7.2 g/dL (12.9-16.9); Immature Granulocytes % 0.9 % (0-4); Lymphocytes # 1.4 K/mcL (0.6-4.6); Lymphocytes % 15.9 %; Mean Corpuscular HGB Conc 31.4 g/dL (31.6-35.5); Mean Corpuscular Hemoglobin 35.1 pg (28.0-33.3); Mean Corpuscular Volume 111.7 fL (83.0-100.0); Mean Platelet Volume 9.8 fL (9.4-12.4); Monocytes # 0.3 K/mcL (0.0-1.3); Monocytes % 3.4 %; Nucleated Red Blood Cells 0.2 /100 WBC (0); Platelet Count 170 K/mcL (140-400); Red Blood Count 2.05 M/mcL (4.19-5.50); Red Cell Distribution Width 15.5 % (11.5-14.5); Segmented Neutrophils % 79.8 %
[2017-02-06 04:45] LABS: BUN/Creatinine Ratio 23 (6-26); Blood Urea Nitrogen 25 mg/dL (8-26); Calcium 8.2 mg/dL (8.6-10.8); Carbon Dioxide 20 mEq/L (19-29); Chloride 107 mEq/L (98-109); Glucose 121 mg/dL (70-99); Osmolality,Calculated 288 (280-300); Potassium 4.9 mEq/L (3.5-4.5); Sodium 136 mEq/L (136-145); eGFR For African Americans > 60 (> 60); eGFR For Non-African Americans > 60 (> 60)
[2017-02-06 05:27] LABS: Macrocytosis Present (Not Present); Platelet Estimate Normal (Normal); Polychromasia 1+ (Not Present)
[2017-02-06 05:29] LABS: Tear Drop Cells 1+ (Not Present)
[2017-02-06] MEDS: MethylPREDNISolone 40 MG/ML VIAL IVP SCH ×2 (05:35→16:56)
[2017-02-06] MEDS: Aspirin 81 MG TAB.CHEW PO SCH (08:21)
[2017-02-06] MEDS: PHENobarbital 32.4 MG TABLET PO SCH ×4 (08:21→20:53)
[2017-02-06] MEDS: Metoprolol XL (24 HR) Succ 25 MG TAB.ER.24H PO SCH (08:21)
[2017-02-06] MEDS: 0.9 % Sodium Chloride 1,000 ML IVC SCH (08:22)
[2017-02-06] MEDS: Folic Acid 1 MG TABLET PO SCH (08:22)
[2017-02-06] MEDS: Famotidine 20 MG TABLET PO SCH (08:22)
[2017-02-06] MEDS: valACYclovir 500 MG TABLET PO SCH (08:22)
[2017-02-06] MEDS: Cyanocobalamin (B-12) 1,000 MCG TABLET PO SCH (08:22)
[2017-02-06] MEDS ORDERED: [UNRECOGNIZED DRUG - OTHER] IM ONE (12:30)
[2017-02-06] MEDS ORDERED: Famotidine 20 MG/2 ML VIAL IVP ONE (17:51)
--- NOTE | 2017-02-06 17:57 | Internal Med Progress Note ---
Date of Encounter: 02/06/17 Time of Encounter: 12:10 - Assessment and plan (1) Autoimmune hemolytic anemia Current Visit: Yes Status: Acute Assessment and plan: Increase frequency of solumedrol to TID Acute renal injury related to Bactrim-induced interstitial nephritis or crystalluria now resolved IM menactra for meningococcal protection in lieu of planne splenectomy Surgical consult obtained today, splenectomy, likely laparoscopic planned in the coming days. Transfuse 1 u of PRBC. bmp/cbc in the AM. dc fluids Continue other care. (2) Shortness of breath Current Visit: Yes Status: Acute (3) UTI (urinary tract infection) Current Visit: Yes Status: Acute Qualifiers: Urinary tract infection type: site unspecified Hematuria presence: without hematuria Qualified Code(s): N39.0 - Urinary tract infection, site not specified (4) CAD (coronary artery disease) Current Visit: Yes Status: Chronic Qualifiers: Coronary Disease-Associated Artery/Lesion type: [place] artery [place] vs. transplanted heart: [place] heart Associated angina: without angina Qualified Code(s): I25.10 - Atherosclerotic heart disease of [place] coronary artery without angina pectoris (5) Hypertension Current Visit: No Status: Chronic Qualifiers: Hypertension type: essential hypertension Qualified Code(s): I10 - Essential (primary) hypertension (6) Acute renal injury Current Visit: Yes Status: Acute - Time Spent With Patient Greater than 35 minutes - Subjective Interval history: Mr. 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 Hb=7.9 at admission. IV Solumedrol initiated by driver's license reviewing officer. HH=7.2 remains at 7.2 g/dl this morning. He has no complaints this morning. - Constitutional Vitals: Temp Pulse Resp BP Pulse Ox 98.5 F 80 16 95/44 89 L 02/06/17 17:27 02/06/17 17:27 02/06/17 17:27 02/06/17 17:27 02/06/17 17:27 Exam: Not in distress, mild pale, anicteric, afebrile, acyanotic No JVD. no cervical lymphadenopathy Chest is clear. Heart: RRR, HS1/2 Abdomen: soft, non-tender, no masses STORY EDITOR: aao x 3. Skin: no purpura No bleeding noted from any other orifice. Internal Medicine: Result - Labs CBC & Chem 7: 02/06/17 03:58 02/06/17 03:58 Labs: Short CBC 02/06/17 Range/Units 03:58 WBC 8.8 (4.3-11.1) K/mcL Hgb 7.2 L (12.9-16.9) g/dL Hct 22.9 L (37.5-50.1) % Plt Count 170 (140-400) K/mcL Neutrophils # 7.0 (1.6-8.9) K/mcL BMP 02/06/17 03:58 Sodium 136 Potassium 4.9 H Chloride 107 Carbon Dioxide 20 BUN 25 Creatinine 1.11 Glucose 121 H Calcium 8.2 L - ABG Interpretation ABG results: PT/INR, D-dimer PT 13.3 Seconds (9.4-12.1) H 02/03/17 21:35 D-Dimer 917 ng/mLFEU (0-500) H 02/04/17 06:26 Consult Discharge Plan - Plan Referrals: Moe Maya MD [Primary Care Provider] -
[2017-02-07 04:37] LABS: Hematocrit 25.4 % (37.5-50.1); Hemoglobin 8.1 g/dL (12.9-16.9)
[2017-02-07 04:53] LABS: Calcium 8.1 mg/dL (8.6-10.8); Potassium 4.2 mEq/L (3.5-4.5)
[2017-02-07] MEDS: MethylPREDNISolone 40 MG/ML VIAL IVP SCH ×2 (06:27→18:34)
[2017-02-07] MEDS: Folic Acid 1 MG TABLET PO SCH (09:50)
[2017-02-07] MEDS: valACYclovir 500 MG TABLET PO SCH (09:50)
[2017-02-07] MEDS: Aspirin 81 MG TAB.CHEW PO SCH (09:50)
[2017-02-07] MEDS: Metoprolol XL (24 HR) Succ 25 MG TAB.ER.24H PO SCH (09:50)
[2017-02-07] MEDS: Cyanocobalamin (B-12) 1,000 MCG TABLET PO SCH (09:50)
[2017-02-07] MEDS: PHENobarbital 32.4 MG TABLET PO SCH ×4 (09:51→21:30)
[2017-02-07] MEDS: Famotidine 20 MG TABLET PO SCH (09:51)
--- NOTE | 2017-02-07 15:30 | Internal Med Progress Note ---
Date of Encounter: 02/07/17 Time of Encounter: 10:20 - Assessment and plan (1) Autoimmune hemolytic anemia Current Visit: Yes Status: Acute (2) Shortness of breath Current Visit: Yes Status: Acute (3) UTI (urinary tract infection) Current Visit: Yes Status: Acute Qualifiers: Urinary tract infection type: site unspecified Hematuria presence: without hematuria Qualified Code(s): N39.0 - Urinary tract infection, site not specified (4) CAD (coronary artery disease) Current Visit: Yes Status: Chronic Qualifiers: Coronary Disease-Associated Artery/Lesion type: [place] artery [place] vs. transplanted heart: [place] heart Associated angina: without angina Qualified Code(s): I25.10 - Atherosclerotic heart disease of [place] coronary artery without angina pectoris (5) Hypertension Current Visit: No Status: Chronic Qualifiers: Hypertension type: essential hypertension Qualified Code(s): I10 - Essential (primary) hypertension (6) Acute renal injury Current Visit: Yes Status: Acute - Subjective Interval history: Mr. 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 Hb=7.9 at admission. IV Solumedrol initiated by diesel engine pipe fitter. HH=7.2 remains at 7.2 g/dl this morning. He has no complaints this morning. - Constitutional Vitals: Temp Pulse Resp BP Pulse Ox 97.8 F 69 15 104/62 98 02/07/17 15:07 02/07/17 15:07 02/07/17 15:07 02/07/17 15:07 02/07/17 15:07 Internal Medicine: Result - Labs CBC & Chem 7: 02/07/17 04:15 02/07/17 04:15 Labs: Short CBC 02/07/17 Range/Units 04:15 Hgb 8.1 L (12.9-16.9) g/dL Hct 25.4 L (37.5-50.1) % BMP 02/07/17 04:15 Sodium 134 L Potassium 4.2 Chloride 104 Carbon Dioxide 23 BUN 26 Creatinine 1.47 H Glucose 108 H Calcium 8.1 L - ABG Interpretation ABG results: PT/INR, D-dimer PT 13.3 Seconds (9.4-12.1) H 02/03/17 21:35 D-Dimer 917 ng/mLFEU (0-500) H 02/04/17 06:26 Consult Discharge Plan - Plan Referrals: Moe Maya MD [Primary Care Provider] -
--- NOTE | 2017-02-07 19:15 | General Surgery Consult Note ---
Date of Encounter: 02/07/17 Time of Encounter: 19:00 History of Present Illness Consult date: 02/07/17 Requesting physician: Esteban Ann History of present illness: 66-year-old hospitalized for further evaluation and treatment of shortness of breath. Patient has been diagnosed with recurrence of his autoimmune hemolytic anemia. Patient has previously been treated weekly with excellent but short- lived response. The patient presented 02/03/17 with progressive shortness of breath and was found to have significant anemia with a hemoglobin of 7.9. The patient has been transfused but the response is limited, his current hemoglobin 8.1 with hematocrit 25.4. Per recommendations by Dr Rush, the patient has been started on Solu-Medrol 40 mg IV twice daily. Increase to 40 mg IV 3 times a day if the response is not adequate. A slow taper once the hemoglobin improves with maintenance on prednisone 60 mg daily for 2 weeks on discharge. The patient is deemed a candidate for splenectomy which prompted this surgical consultation. Additional recommendations include pneumococcal, meningococcal and H influenza B vaccinations. Past medical history: Coronary artery disease with previous MA; hyperlipidemia, hypertension, and seizure disorder. Surgical history: Coronary angioplasty with stents; appendectomy; laparoscopic cholecystectomy Allergies: Phenytoin Medications: Phenobarbital 32.4 mg by mouth 4 times a day Aspirin 81 mg by mouth daily Ergocalciferol (vitamin D2) 50,000 units weekly Metoprolol XL 25 mg by mouth daily Prochlorperazine 10 mg by mouth every 8 hours when necessary for nausea Cyanocobalamin 1000 g by mouth daily Famotidine 40 mg by mouth daily Folic acid 1 mg by mouth daily Levothyroxine 50 g by mouth daily Nitrostat 0.4 mg sublingually every 5 minutes as needed for chest pain Pravastatin 40 mg by mouth daily at bedtime Temazepam 7.5 mg by mouth daily at bedtime as needed for sleep Valacyclovir 500 mg by mouth daily Medication since admission include: Methyl prednisolone 40 mg every 12 hours; ceftriaxone 1 g IV every 24 hours; morphine and hydrocodone/acetaminophen. Social history: Patient is , he has never smoked; he denies any alcohol or illicit drug use. On physical examination: Patient appears older than his stated age but in no acute distress. The patient has been afebrile, 97.8; pulse 69, respirations 15, blood pressure 104/62. It is warm without obvious jaundice - most recent bilirubin 1.5 Lungs: Diminished breath sounds both bases but no rales or rhonchi Cardiac: Regular rate Abdomen: Soft, nontender. No obvious hepatosplenomegaly, or intra-abdominal masses. No rebound. Active bowel sounds. Excision of his colon no obvious clubbing cyanosis or edema. Impression: 66-year-old male with recurrent autoimmune hemolytic anemia referred to surgical services to consider splenectomy. I have discussed the situation with the patient and his who was in attendance. I will discuss the patient's clinical status with Dr. Rush and the Hospitalists to determine the timing of the splenectomy. Thank you for this consultation, I will follow along with you. Past Med Surg Social Fam HX - Past Medical History Medical history: coronary artery disease, hyperlipidemia, hypertension, myocardial infarction, seizures Psychiatric history: no psych history - Past Surgical History Surgical History: angioplasty/stent, appendectomy, cholecystectomy - Social History Smoking Status: Never smoker Smokeless Tobacco Status: No Alcohol use: none Drug use: none - Family History Son Adopted: No Family Member Ethnicity: Non- Living Status: Still Living Hx Family Cardiac Disorders: Yes Hx Family Respiratory Disorders: No Hx Family Cancer: No Hx Family GI Disorders: Yes Hx Family Endocrine Disorder: Yes Hx Family Neuromuscular Disorders: No Hx Family Neurologic Disorders: No Hx Family HEENT Disorders: No Hx Family Autoimmune Disorders: No Mother Adopted: No Family Member Ethnicity: Non- Living Status: Hx Family Cardiac Disorders: Yes (MA) Hx Family Respiratory Disorders: No Hx Family Cancer: Yes Hx Family GI Disorders: No Hx Family Endocrine Disorder: No Hx Family Neuromuscular Disorders: No Hx Family Neurologic Disorders: No Hx Family HEENT Disorders: No Hx Family Autoimmune Disorders: No Medications and Allergies PHENobarbital [Phenobarbital] 32.4 mg PO QID 02/06/16 [History] Aspirin 81 mg PO DAILY #30 tab.chew 08/16/16 [Rx] Ergocalciferol (VITAMIN D2) [Vitamin D2 (50,000 UNIT)] 50,000 unit PO FR [History] Metoprolol XL (24 HR) Succ [Toprol Xl] 25 mg PO DAILY 08/22/16 [History] Prochlorperazine Maleate [Compazine] 10 mg PO Q8HR PRN #0 tablet 08/28/16 [Rx] Cyanocobalamin (Vitamin B-12) [Vitamin B12] 1,000 mcg PO DAILY #30 tablet [Rx] Famotidine [Famotidine] 40 mg PO DAILY 02/03/17 [History] Folic Acid 1 mg PO DAILY 02/03/17 [History] Levothyroxine [Synthroid] 50 mcg PO DAILY #30 tablet 02/03/17 [Rx] Lisinopril [Zestril] 5 mg PO DAILY 02/03/17 [History] Nitroglycerin [Nitrostat] 0.4 mg SL Q5M PRN 02/03/17 [History] Pravastatin Sodium [Pravachol] 40 mg PO HS 02/03/17 [History] PredniSONE 20 mg PO DAILY 02/03/17 [History] Sulfamethoxazole/Trimeth DS [Bactrim DS] 1 each PO MOFR 02/03/17 [History] Temazepam [Restoril] 7.5 mg PO HS PRN 02/03/17 [History] Valacyclovir [Valtrex] 500 mg PO DAILY 02/03/17 [History] Allergies phenytoin [From Dilantin] Adverse Reaction (Verified 08/21/16 18:47) Drowsy Review of Systems All systems PM: A 10-system review of systems was performed and is negative for pertinent findings except as documented above in the HPI. General Surgery Exam Initial Vital Signs Temp Pulse Resp BP Pulse Ox 98.0 F 84 18 147/68 100 02/03/17 20:58 02/03/17 20:58 02/03/17 20:58 02/03/17 20:58 02/03/17 20:58 Exam Initial Vital Signs Temp Pulse Resp BP Pulse Ox 98.0 F 84 18 147/68 100 02/03/17 20:58 02/03/17 20:58 02/03/17 20:58 02/03/17 20:58 02/03/17 20:58 Results - Labs 02/07/17 04:15 02/07/17 04:15 Abnormal lab results RBC 2.05 M/mcL (4.19-5.50) L 02/06/17 03:58 Hgb 8.1 g/dL (12.9-16.9) L 02/07/17 04:15 Hct 25.4 % (37.5-50.1) L 02/07/17 04:15 MCV 111.7 fL (83.0-100.0) H 02/06/17 03:58 MCH 35.1 pg (28.0-33.3) H 02/06/17 03:58 MCHC 31.4 g/dL (31.6-35.5) L 02/06/17 03:58 RDW 15.5 % (11.5-14.5) H 02/06/17 03:58 Reticulocyte # 0.39 M/mcL (0.05-0.10) H 02/05/17 04:18 Nucleated RBCs/100 WBC 0.2 /100 WBC (0) H 02/06/17 03:58 Polychromasia 1+ (Not Present) A 02/06/17 03:58 Macrocytosis Present (Not Present) A 02/06/17 03:58 Tear Drop Cells 1+ (Not Present) A 02/06/17 03:58 Percent Retic 19.0 % (1.6-2.8) H 02/05/17 04:18 PT 13.3 Seconds (9.4-12.1) H 02/03/17 21:35 D-Dimer 917 ng/mLFEU (0-500) H 02/04/17 06:26 Sodium 134 mEq/L (136-145) L 02/07/17 04:15 Creatinine 1.47 mg/dL (0.72-1.25) H 02/07/17 04:15 Est GFR ( Amer) 58 (> 60) L 02/07/17 04:15 Est GFR (Non-Af Amer) 48 (> 60) L 02/07/17 04:15 Glucose 108 mg/dL (70-99) H 02/07/17 04:15 Calcium 8.1 mg/dL (8.6-10.8) L 02/07/17 04:15 Transferrin 140 mg/dL (174-364) L 02/05/17 04:18 Ferritin 2202 ng/ml (22-275) H 02/05/17 04:18 Total Bilirubin 1.5 mg/dL (0.2-1.2) H D 02/05/17 04:18 Direct Bilirubin 0.6 mg/dL (0.0-0.5) H 02/05/17 04:18 Lactate Dehydrogenase 435 Units/L (159-327) H 02/05/17 04:18 Urine Protein 30 mg/dL (Neg-Trace) H 02/03/17 23:43 Urine Blood Trace-lysed (Negative) H 02/03/17 23:43 Urine Nitrite Positive (Negative) A 02/03/17 23:43 Urine Bilirubin Small (Negative) H 02/03/17 23:43 Urine Bacteria Moderate per hpf (None-Few) H 02/03/17 23:43 Ur Culture Indicated? YES (NO) A 02/03/17 23:43 Diabetes panel 02/07/17 Range/Units 04:15 Sodium 134 L (136-145) mEq/L Potassium 4.2 (3.5-4.5) mEq/L Chloride 104 (98-109) mEq/L Carbon Dioxide 23 (19-29) mEq/L BUN 26 (8-26) mg/dL Creatinine 1.47 H (0.72-1.25) mg/dL Glucose 108 H (70-99) mg/dL Calcium 8.1 L (8.6-10.8) mg/dL Calcium panel 02/07/17 Range/Units 04:15 Calcium 8.1 L (8.6-10.8) mg/dL Pituitary panel 02/07/17 Range/Units 04:15 Sodium 134 L (136-145) mEq/L Potassium 4.2 (3.5-4.5) mEq/L Chloride 104 (98-109) mEq/L Carbon Dioxide 23 (19-29) mEq/L BUN 26 (8-26) mg/dL Creatinine 1.47 H (0.72-1.25) mg/dL Glucose 108 H (70-99) mg/dL Calcium 8.1 L (8.6-10.8) mg/dL Adrenal panel 02/07/17 Range/Units 04:15 Sodium 134 L (136-145) mEq/L Potassium 4.2 (3.5-4.5) mEq/L Chloride 104 (98-109) mEq/L Carbon Dioxide 23 (19-29) mEq/L BUN 26 (8-26) mg/dL Creatinine 1.47 H (0.72-1.25) mg/dL Glucose 108 H (70-99) mg/dL Calcium 8.1 L (8.6-10.8) mg/dL All other labs normal. Consult Discharge Plan - Plan Referrals: Moe Maya MD [Primary Care Provider] -
[2017-02-08] MEDS: MethylPREDNISolone 40 MG/ML VIAL IVP SCH ×2 (06:40→17:13)
[2017-02-08] MEDS: valACYclovir 500 MG TABLET PO SCH (10:10)
[2017-02-08] MEDS: Cyanocobalamin (B-12) 1,000 MCG TABLET PO SCH (10:10)
[2017-02-08] MEDS: Folic Acid 1 MG TABLET PO SCH (10:10)
[2017-02-08] MEDS: Aspirin 81 MG TAB.CHEW PO SCH (10:10)
[2017-02-08] MEDS: PHENobarbital 32.4 MG TABLET PO SCH ×4 (10:10→20:49)
[2017-02-08] MEDS: Famotidine 20 MG TABLET PO SCH (10:10)
[2017-02-08] MEDS: Metoprolol XL (24 HR) Succ 25 MG TAB.ER.24H PO SCH (12:16)
--- NOTE | 2017-02-08 13:51 | Internal Med Progress Note ---
Date of Encounter: 02/08/17 Time of Encounter: 13:49 - Assessment and plan (1) Acute renal injury Current Visit: Yes Status: Resolved Assessment and plan: Likely related to anemia and dehydration in the setting of chronic Bactrim use. Bactrim is currently on hold. Serum creatinine currently normalized. (2) Autoimmune hemolytic anemia Current Visit: Yes Status: Chronic Assessment and plan: Patient follows with hematology as an outpatient. Has been on steroids and Rituxan, with transient response. He received 2 units PRBC transfusion during this admission and hemoglobin is stable today. Hematology consult appreciated. Continue IV Solu-Medrol. Surgery consulted, planned for splenectomy tomorrow. Patient received pneumococcal, meningococcal and H. influenzae B vaccinations. (3) UTI (urinary tract infection) Current Visit: Yes Status: Ruled-out Assessment and plan: Asymptomatic. Urine culture grows no significant bacteria. We will discontinue Rocephin for now. Qualifiers: Urinary tract infection type: site unspecified Hematuria presence: without hematuria Qualified Code(s): N39.0 - Urinary tract infection, site not specified (4) Hypothyroidism Current Visit: Yes Status: Chronic Qualifiers: Hypothyroidism type: unspecified Qualified Code(s): E03.9 - Hypothyroidism , unspecified (5) CAD (coronary artery disease) Current Visit: Yes Status: Chronic Qualifiers: Coronary Disease-Associated Artery/Lesion type: [place] artery [place] vs. transplanted heart: [place] heart Associated angina: without angina Qualified Code(s): I25.10 - Atherosclerotic heart disease of [place] coronary artery without angina pectoris (6) Seizure disorder Current Visit: Yes Status: Chronic - Subjective Interval history: Reports no shortness of breath, chest pain, nausea, diarrhea; awaiting splenectomy tomorrow; received Meningococcal and HiB vaccines; - Constitutional Vitals: Temp Pulse Resp BP Pulse Ox 97.7 F 63 16 102/61 99 02/08/17 11:16 02/08/17 11:16 02/08/17 11:16 02/08/17 11:16 02/08/17 11:16 General appearance: Present: A&O X 3, answers questions appropriately - Head Head exam: Present: atraumatic, normocephalic - Neck Neck exam general surgery: Present: supple, trachea midline. Absent: lymphadenopathy - Respiratory Respiratory exam: Present: CTAB. Absent: accessory muscle use, rales, rhonchi, wheezes - Cardiovascular Cardiovascular exam: Present: RRR, +S1, +S2. Absent: diastolic murmur, gallop, rubs, systolic murmur - GI/Abdominal GI/Abdominal exam: Present: normal bowel sounds, soft, no peritoneal signs. Absent: distended, tenderness - Extremities Exam Extremities exam: Present: full ROM, warm, radial pulses palpable and symetrical. Absent: calf tenderness, cyanotic, pedal edema - Neurological Exam Neurological exam: Present: CN II-XII intact, oriented X3, no focal deficits. Absent: pronater drift, facial droop, speech deficit Internal Medicine: Result - Labs CBC & Chem 7: 02/08/17 13:56 02/08/17 13:56 - ABG Interpretation ABG results: PT/INR, D-dimer PT 13.3 Seconds (9.4-12.1) H 02/03/17 21:35 D-Dimer 917 ng/mLFEU (0-500) H 02/04/17 06:26 Consult Discharge Plan - Plan Referrals: Moe Maya MD [Primary Care Provider] - 02/15/17 2:00 pm
[2017-02-08 14:15] LABS: Basophils % 0.1 %; Hematocrit 26.5 % (37.5-50.1); Hemoglobin 8.8 g/dL (12.9-16.9); Immature Granulocytes % 1.9 % (0-4); Lymphocytes # 1.6 K/mcL (0.6-4.6); Lymphocytes % 10.1 %; Mean Corpuscular HGB Conc 33.2 g/dL (31.6-35.5); Mean Corpuscular Hemoglobin 35.5 pg (28.0-33.3); Mean Corpuscular Volume 106.9 fL (83.0-100.0); Mean Platelet Volume 10.1 fL (9.4-12.4); Monocytes # 0.4 K/mcL (0.0-1.3); Monocytes % 2.3 %; Neutrophils # 13.2 K/mcL (1.6-8.9); Nucleated Red Blood Cells 0.8 /100 WBC (0); Platelet Count 116 K/mcL (140-400); Red Blood Count 2.48 M/mcL (4.19-5.50); Red Cell Distribution Width 14.8 % (11.5-14.5); Segmented Neutrophils % 85.6 %
[2017-02-08 14:21] LABS: BUN/Creatinine Ratio 19 (6-26); Blood Urea Nitrogen 21 mg/dL (8-26); Calcium 8.6 mg/dL (8.6-10.8); Carbon Dioxide 23 mEq/L (19-29); Chloride 103 mEq/L (98-109); Glucose 217 mg/dL (70-99); Osmolality,Calculated 286 (280-300); Potassium 4.1 mEq/L (3.5-4.5); Sodium 133 mEq/L (136-145); eGFR For African Americans > 60 (> 60); eGFR For Non-African Americans > 60 (> 60)
--- NOTE | 2017-02-08 17:52 | General Surgery Progress Note ---
Date of Encounter: 02/08/17 Time of Encounter: 17:44 Subjective Patient reports: no new complaints Narrative: General Surgery - discussed with Dr Rush. history autoimmune hemolytic anemia not responsive to medical management. Only transient response to Retuxin. Currently on steroids (methylPrednisolone 40 mg IV BID). Splenectomy planned in AM. Dr Rush does not feel deferring surgery will result in significant benefit or improvement in the patient 's status. Surgery discussed with patient. Open splenectomy planned in AM. Risks include hemorrhage, infection, intra-abdominal abscess, as of overwhelming postsplenectomy sepsis (0PSS); continued symptoms despite splenectomy; respiratory risks such as pneumonia, cardiac risks such as [place] and cardiac dysrhythmia. Alternatives to open surgery include laparoscopic and robotic splenectomy. Patient declined to consider these options. Current labs show white count 15.4 (likely response to steroids) hemoglobin 8.8 , hematocrit 26.5; platelet count 116,000 (previously 170,000) Plan: open splenectomy in AM; stress dose steroids pre op; repeat labs with possible transfusions PRBC and platelets if needed. Objective Vital Signs - Last 8 Hours Temp Pulse Resp BP Pulse Ox 02/08/17 15:05 97.4 F L 62 15 107/61 98 02/08/17 11:16 97.7 F 63 16 102/61 99 Intake and Output 02/08/17 02/08/17 02/08/17 07:59 15:59 23:59 Intake Total 400 / 400 480 / 480 Output Total 500 / 500 875 / 875 200 / 200 Balance -100 / -100 -395 / -395 -200 / -200 Intake: Oral 400 / 400 480 / 480 Output: Urine 500 / 500 875 / 875 200 / 200 Other: Meal Lunch Percent of Meal Consumed 100% Weight 87.3 kg Patient Weight 02/08/17 23:59 Weight 87.3 kg - Labs 02/08/17 13:56 02/08/17 13:56 Diabetes panel 02/08/17 Range/Units 13:56 Sodium 133 L (136-145) mEq/L Potassium 4.1 (3.5-4.5) mEq/L Chloride 103 (98-109) mEq/L Carbon Dioxide 23 (19-29) mEq/L BUN 21 (8-26) mg/dL Creatinine 1.12 (0.72-1.25) mg/dL Glucose 217 H (70-99) mg/dL Calcium 8.6 (8.6-10.8) mg/dL Calcium panel 02/08/17 Range/Units 13:56 Calcium 8.6 (8.6-10.8) mg/dL Pituitary panel 02/08/17 Range/Units 13:56 Sodium 133 L (136-145) mEq/L Potassium 4.1 (3.5-4.5) mEq/L Chloride 103 (98-109) mEq/L Carbon Dioxide 23 (19-29) mEq/L BUN 21 (8-26) mg/dL Creatinine 1.12 (0.72-1.25) mg/dL Glucose 217 H (70-99) mg/dL Calcium 8.6 (8.6-10.8) mg/dL Adrenal panel 02/08/17 Range/Units 13:56 Sodium 133 L (136-145) mEq/L Potassium 4.1 (3.5-4.5) mEq/L Chloride 103 (98-109) mEq/L Carbon Dioxide 23 (19-29) mEq/L BUN 21 (8-26) mg/dL Creatinine 1.12 (0.72-1.25) mg/dL Glucose 217 H (70-99) mg/dL Calcium 8.6 (8.6-10.8) mg/dL Consult Discharge Plan - Plan Referrals: Moe Maya MD [Primary Care Provider] - 02/15/17 2:00 pm
--- NOTE | 2017-02-08 19:55 | Anesthesia Evaluation PreOp ---
Date of Encounter: 02/08/17 Time of Encounter: 19:52 - Past History Planned Operation: splenectomy Cardiac History: DC, HTN, Hyperlipidemia, Cardiac Stent (ARIEL to LAD in 2011), Other (nuc stress 02/10: neg ischemia, no cp, ef 70. echo 08/13. ef 65%, nl rv) Pulmonary History: Denies Any Significant HX DATABASE SECURITY ADMINISTRATOR History: Seizures (well controlled on phenobarb) Other Medical History: Renal (ckd stage ), Thyroid, Other (h/o AutoImmune Hemolytic Anemia....on chronic steroids) Anesthesia History: No Prior Anesthetic Complications, Past Anesthesia (appy, cholecyst) Alcohol Use: none Drug use: none Medications and Allergies PHENobarbital [Phenobarbital] 32.4 mg PO QID 02/06/16 [History] Aspirin 81 mg PO DAILY #30 tab.chew 08/16/16 [Rx] Ergocalciferol (VITAMIN D2) [Vitamin D2 (50,000 UNIT)] 50,000 unit PO FR [History] Metoprolol XL (24 HR) Succ [Toprol Xl] 25 mg PO DAILY 08/22/16 [History] Prochlorperazine Maleate [Compazine] 10 mg PO Q8HR PRN #0 tablet 08/28/16 [Rx] Cyanocobalamin (Vitamin B-12) [Vitamin B12] 1,000 mcg PO DAILY #30 tablet [Rx] Famotidine [Famotidine] 40 mg PO DAILY 02/03/17 [History] Folic Acid 1 mg PO DAILY 02/03/17 [History] Levothyroxine [Synthroid] 50 mcg PO DAILY #30 tablet 02/03/17 [Rx] Lisinopril [Zestril] 5 mg PO DAILY 02/03/17 [History] Nitroglycerin [Nitrostat] 0.4 mg SL Q5M PRN 02/03/17 [History] Pravastatin Sodium [Pravachol] 40 mg PO HS 02/03/17 [History] PredniSONE 20 mg PO DAILY 02/03/17 [History] Sulfamethoxazole/Trimeth DS [Bactrim DS] 1 each PO MOFR 02/03/17 [History] Temazepam [Restoril] 7.5 mg PO HS PRN 02/03/17 [History] Valacyclovir [Valtrex] 500 mg PO DAILY 02/03/17 [History] Allergies phenytoin [From Dilantin] Adverse Reaction (Verified 08/21/16 18:47) Drowsy - Meds/Allergy Pre-op Review Medications Reviewed: Yes Allergies Reviewed: Yes Beta Blockers on Current Med List: Yes If Beta Blockers taken, Date/Time (Last Dose taken): metoprolol Anesthesia Results - Labs 02/08/17 13:56 02/08/17 13:56 - Imaging EKG: report reviewed (02/11: sr) Anesthesia Exam Vital Signs/O2 Sat/Glucose, Most Current Temp Pulse Resp BP Pulse Ox 02/08/17 19:07 97.3 F L 67 16 107/64 97 Height: 1.65 Weight: 87 NPO (# of Hours): >8 - HEENT Pupil (Motor): Pupils equal, EOMI Mallampati: II Teeth: Edentulous, Poor dentition Oral Opening: Greater than 3 - DATABASE SECURITY ADMINISTRATOR LOC: Oriented DATABASE SECURITY ADMINISTRATOR Motor: Normal RUE, Normal LUE, Normal RLE, Normal LLE, Normal Face DATABASE SECURITY ADMINISTRATOR Sensory: Normal: RUE, LUE, RLE, LLE, Face - Cardiac Rhythm: Regular Murmur: None - Pulmonary Breath Sounds: bilateral Clear Respiratory Effort: Symmetrical Anesthesia Assess/Plan ASA Score: 3 Modified Leann Scale for Level of Consciousness: Cooperative, oriented, and tranquil Anesthetic Plan: General Monitoring Plan: Standard Monitors Recovery Plan: PACU
[2017-02-09] MEDS ORDERED: Hydrocortisone Sodium Succ 100 MG/2 ML VIAL IVP ONE (00:01)
[2017-02-09 05:16] LABS: Basophils % 0.1 %; Eosinophils % 0.1 %; Hemoglobin 8.7 g/dL (12.9-16.9); Immature Granulocytes % 1.5 % (0-4); Lymphocytes # 2.9 K/mcL (0.6-4.6); Lymphocytes % 21.1 %; Mean Corpuscular HGB Conc 33.5 g/dL (31.6-35.5); Mean Corpuscular Hemoglobin 35.7 pg (28.0-33.3); Mean Corpuscular Volume 106.6 fL (83.0-100.0); Mean Platelet Volume 10.6 fL (9.4-12.4); Monocytes # 0.7 K/mcL (0.0-1.3); Monocytes % 4.9 %; Neutrophils # 9.8 K/mcL (1.6-8.9); Nucleated Red Blood Cells 2.1 /100 WBC (0); Platelet Count 107 K/mcL (140-400); Red Blood Count 2.44 M/mcL (4.19-5.50); Red Cell Distribution Width 15.2 % (11.5-14.5); Segmented Neutrophils % 72.3 %
[2017-02-09 05:30] LABS: BUN/Creatinine Ratio 19 (6-26); Blood Urea Nitrogen 17 mg/dL (8-26); Calcium 8.2 mg/dL (8.6-10.8); Carbon Dioxide 23 mEq/L (19-29); Chloride 105 mEq/L (98-109); Glucose 109 mg/dL (70-99); Osmolality,Calculated 284 (280-300); Potassium 4.2 mEq/L (3.5-4.5); Sodium 136 mEq/L (136-145); eGFR For African Americans > 60 (> 60); eGFR For Non-African Americans > 60 (> 60)
[2017-02-09] MEDS: MethylPREDNISolone 40 MG/ML VIAL IVP SCH ×2 (06:16→20:58)
--- NOTE | 2017-02-09 08:42 | Oncology Inp Progress Note ---
Date of Encounter: 02/08/17 Time of Encounter: 18:00 (1) Autoimmune hemolytic anemia Current Visit: Yes Status: Chronic Assessment and plan: He has recurrence of autoimmune hemolytic anemia. Had an excellent response to Rituxan but short-lived only for 3 months. Proceed with splenectomy. Dr. sandoval is planning on splenectomy 02/09/2017 During this hospitalization he received meningococcal vaccine and H. influenzae B area received pneumococcal vaccine last year Oncology: Subj Interval history: Hemoglobin slowly improved to 8.8. Energy level has improved slightly. No evidence of bleeding - Constitutional Vitals: Vital Signs Temp Pulse Resp BP Pulse Ox 02/09/17 07:11 97.8 F 56 16 101/63 96 02/09/17 03:34 97.7 F 60 16 101/60 96 02/08/17 23:16 97.7 F 63 15 111/67 98 02/08/17 19:07 97.3 F L 67 16 107/64 97 02/08/17 15:05 97.4 F L 62 15 107/61 98 02/08/17 11:16 97.7 F 63 16 102/61 99 Intake and Output 02/08/17 02/09/17 02/09/17 23:59 07:59 15:59 Intake Total 740 / 740 500 / 500 Output Total 550 / 550 350 / 350 Balance 190 / 190 150 / 150 Intake: Oral 740 / 740 500 / 500 Output: Urine 550 / 550 350 / 350 Other: Meal Dinner Percent of Meal Consumed 50% Weight 85.275 kg Patient Weight 02/09/17 23:59 Weight 85.275 kg Oncology: Obj Data - Labs CBC & Chem 7: 02/09/17 04:30 02/09/17 04:30 Labs: Laboratory Results - last 24 hr 02/08/17 02/08/17 02/09/17 13:56 13:56 04:30 WBC 15.4 H D 13.6 H RBC 2.48 L 2.44 L Hgb 8.8 L 8.7 L Hct 26.5 L 26.0 L MCV 106.9 H 106.6 H MCH 35.5 H 35.7 H MCHC 33.2 33.5 RDW 14.8 H 15.2 H Plt Count 116 L 107 L MPV 10.1 10.6 Immature Gran % 1.9 1.5 Seg Neutrophils % 85.6 72.3 Lymphocytes % 10.1 21.1 Monocytes % 2.3 4.9 Eosinophils % 0.0 0.1 Basophils % 0.1 0.1 Neutrophils # 13.2 H 9.8 H Lymphocytes # 1.6 2.9 Monocytes # 0.4 0.7 Eosinophils # 0.0 0.0 Basophils # 0.0 0.0 Nucleated RBCs/100 WBC 0.8 H 2.1 H Sodium 133 L Potassium 4.1 Chloride 103 Carbon Dioxide 23 BUN 21 Creatinine 1.12 Est GFR ( Amer) > 60 Est GFR (Non-Af Amer) > 60 BUN/Creatinine Ratio 19 Glucose 217 H Calculated Osmolality 286 Calcium 8.6 02/09/17 04:30 WBC RBC Hgb Hct MCV MCH MCHC RDW Plt Count MPV Immature Gran % Seg Neutrophils % Lymphocytes % Monocytes % Eosinophils % Basophils % Neutrophils # Lymphocytes # Monocytes # Eosinophils # Basophils # Nucleated RBCs/100 WBC Sodium 136 Potassium 4.2 Chloride 105 Carbon Dioxide 23 BUN 17 Creatinine 0.89 Est GFR ( Amer) > 60 Est GFR (Non-Af Amer) > 60 BUN/Creatinine Ratio 19 Glucose 109 H Calculated Osmolality 284 Calcium 8.2 L - ABG Interpretation ABG results: PT/INR, D-dimer PT 13.3 Seconds (9.4-12.1) H 02/03/17 21:35 D-Dimer 917 ng/mLFEU (0-500) H 02/04/17 06:26 Consult Discharge Plan - Plan Referrals: Moe Maya MD [Primary Care Provider] - 02/15/17 2:00 pm
[2017-02-09] MEDS: valACYclovir 500 MG TABLET PO SCH (08:57)
[2017-02-09] MEDS: PHENobarbital 32.4 MG TABLET PO SCH (08:57)
[2017-02-09] MEDS: Famotidine 20 MG TABLET PO SCH (08:57)
[2017-02-09] MEDS: Metoprolol XL (24 HR) Succ 25 MG TAB.ER.24H PO SCH (08:57)
[2017-02-09] MEDS: Aspirin 81 MG TAB.CHEW PO SCH (08:57)
[2017-02-09] MEDS: Cyanocobalamin (B-12) 1,000 MCG TABLET PO SCH (08:57)
[2017-02-09] MEDS: Folic Acid 1 MG TABLET PO SCH (08:58)
[2017-02-09] MEDS ORDERED: *HR* Propofol 200 MG/20 ML VIAL IVP ONE (12:13)
[2017-02-09] MEDS ORDERED: *HR* Midazolam HCl 2 MG/2 ML VIAL ONE (12:13)
[2017-02-09] MEDS ORDERED: *HR* FentaNYL (PF) 100 MCG/2 ML VIAL ONE ×2 (12:13→12:29)
[2017-02-09] MEDS ORDERED: Ondansetron 4 MG/2 ML VIAL ONE (14:50)
[2017-02-09] MEDS ORDERED: Dexamethasone 4 MG/ML VIAL ONE (14:50)
[2017-02-09] MEDS ORDERED: Lidocaine -MPF 2% 2 ML VIAL ONE (14:50)
[2017-02-09] MEDS ORDERED: *HR* Rocuronium Bromide 50 MG/5 ML VIAL ONE (14:50)
[2017-02-09] MEDS ORDERED: *HR* Succinylcholine 200 MG/10 ML VIAL IVP ONE (14:50)
[2017-02-09] MEDS ORDERED: Neostigmine Methylsulfate 3 MG/3 ML SYRINGE ONE (14:51)
[2017-02-09] MEDS ORDERED: *HR* Morphine 10 MG/ML VIAL ONE (14:59)
[2017-02-09] MEDS ORDERED: Bupivacaine/EPI 1:200k 0.25%PF 30 ML VIAL ONE (15:33)
[2017-02-09] MEDS ORDERED: Ondansetron 4 MG/2 ML VIAL IVP ONE (15:36)
[2017-02-09] MEDS ORDERED: *HR* Morphine 2 MG/ML SYRINGE IVP PRN (15:36)
--- NOTE | 2017-02-09 16:00 | Operative Note ---
Date of procedure: 02/09/17 Pre-op diagnosis: autoimmune hemolytic anemia Post-op diagnosis: same Procedure: splenectomy Complications: none apparent Anesthesia: GETA Local Anesthetics: 0.25% Sensorcaine HCL with Epinephrine 1:200,000 SubQ (cc) ( 40mL) Surgeon: Kasi Brunson Blender / Cook: Areli Morillo Estimated blood loss (cc): 400 IV fluids (cc): 1,800 Specimen: spleen and accessory spleen Condition: stable Disposition: PACU Procedure in Detail: The patient was brought to the operating room where he was placed supine on the operating room table. The patient was appropriately identified as to person and procedure. The accuracy of this information was confirmed by the procedure team. The patient was intubated and anesthetized under the supervision of Dr. Konstantin Sethi. An NG was placed by Anesthesia at my request and a Aponte catheter was inserted. The abdomen was prepped and draped in usual sterile fashion. A left subcostal incision was planned. The proposed incision site was infiltrated with several milliliters of 0.25% bupivacaine with 1-200,000 epinephrine. The skin was then incised. Dissection was carried down to and through the anterior rectus sheath. Bleeding points were controlled with Bovie electrocautery. The left rectus abdominis muscle was divided with electrocautery. The posterior rectus sheath was grasped with 2 Larisa clamps and elevated. The abdomen was entered atraumatically. Exposure was facilitated with self- retaining Omni tract retractor. Exploration of the abdomen was completed. The spleen was enlarged without active bleeding. The liver appeared to be grossly normal as did the stomach. The small bowel was examined from the ligament of Treitz to the ileocecal valve with no significant abnormalities detected. The visible portions of the colon also appeared normal. The lateral peritoneal adhesions to the spleen were lysed first. The splenocolic ligament was divided with the aid of the [employer] Impact LigaSure dissector. A small accessory spleen was identified along the inferomedial border of the spleen. This was dissected and removed using the Impact LigaSure Diessector. Splenic dissection continued from lateral to the more medial. The spleen was slowly mobilized medially. The short gastric vessels were dissected and divided with the aid of the Impact LigaSure. The splenic vein and splenic artery were eventually isolated and clamped with a curved Larisa. The spleen was removed. Both the splenic vein and splenic artery were individually stapled using an Ethicon ATS 45 mm stapler using a vascular cartridge. Some persistent bleeding/oozing from the short gastrics required suture ligation. This was accomplished with interrupted [id number] 2-0 silk. Satisfactory hemostasis was achieved. The colon and small bowel were again examined. The tail of the pancreas appeared to be intact. The left upper abdomen was irrigated with warm sterile saline which was evacuated with the suction device. Again hemostasis was found to be adequate. Closure was then initiated in layers. The peritoneum was approximated with the posterior rectus sheath using running interlocking 0 Vicryl. This layer was infiltrated several milliliters of 0.25% bupivacaine with 1-2000 epinephrine. The anterior rectus sheath was reapproximated with interrupted [id number] 0 Vicryl and infiltrated with the bupivacaine with epinephrine solution. The skin edges were reapproximated with valdo. A dry sterile dressing was applied. The nasogastric tube placement had been verified at the time of the abdominal exploration. This was now sutured to the nose with 3-0 silk. The patient was taken to recovery in stable condition. Needle, sponge, and instrument counts were correct at the close of the case. Total volume of 0.25% bupivacaine with 1-200,000 units epinephrine administered during this procedure, 40 mL.
--- NOTE | 2017-02-09 16:39 | Anesthesia Evaluation Post Op ---
Date of Encounter: 02/09/17 Time of Encounter: 16:40 - Vital Signs Vital Signs: Vital Signs/O2 Sat/Glucose, Most Current Temp Pulse Resp BP Pulse Ox 02/09/17 16:30 98.2 F 44 18 136/67 100 02/09/17 16:20 98.2 F 59 18 138/78 99 02/09/17 16:10 45 18 138/65 99 02/09/17 16:00 43 18 133/61 100 02/09/17 15:50 98.2 F 52 18 126/62 100 - Lungs Lungs: Clear Ascult./Percussion - Airway Airway: Non-obstructed - Cardiovascular Regular Rate - Mental Status Mental Status: Alert & Oriented, Answers Appropriately - Pain Pain Scale: 0 - Nausea Vomiting Nausea Vomiting: Not Present - Hydration Hydration: Ice chips - Discharge PostOp Status: Transfer Patient to floor
[2017-02-09] MEDS ORDERED: Nitroglycerin 0.4 MG TAB.SUBL SL PRN (16:45)
[2017-02-09] MEDS ORDERED: *HR* Morphine 30 MG/ 30 ML PCA IVC PRN (16:45)
[2017-02-09] MEDS ORDERED: Ondansetron 4 MG/2 ML VIAL IVP PRN (16:45)
[2017-02-09] MEDS ORDERED: Naloxone 0.4 MG/ML INJ IVP PRN ×2 (16:45)
[2017-02-09] MEDS: Albuterol 2.5 MG/3 ML NEBULIZER IH SCH ×2 (18:10→20:35)
--- NOTE | 2017-02-09 18:24 | Internal Med Progress Note ---
Date of Encounter: 02/09/17 Time of Encounter: 18:24 - Assessment and plan (1) Acute renal injury Current Visit: Yes Status: Resolved (2) Autoimmune hemolytic anemia Current Visit: Yes Status: Chronic Assessment and plan: Patient follows with hematology as an outpatient. Has been on steroids and Rituxan, with transient response. He received 2 units PRBC transfusion during this admission and hemoglobin is stable today. Hematology consult appreciated. Continue IV Solu-Medrol. Surgery consulted, underwent open splenectomy today. Postoperative care per surgery. Currently nothing by mouth with NG tube in place, draining some amount of dark fluid. Patient received pneumococcal, meningococcal and H. influenzae B vaccinations. (3) UTI (urinary tract infection) Current Visit: Yes Status: Ruled-out Qualifiers: Urinary tract infection type: site unspecified Hematuria presence: without hematuria Qualified Code(s): N39.0 - Urinary tract infection, site not specified (4) Hypothyroidism Current Visit: Yes Status: Chronic Qualifiers: Hypothyroidism type: unspecified Qualified Code(s): E03.9 - Hypothyroidism , unspecified (5) CAD (coronary artery disease) Current Visit: Yes Status: Chronic Qualifiers: Coronary Disease-Associated Artery/Lesion type: [place] artery [place] vs. transplanted heart: [place] heart Associated angina: without angina Qualified Code(s): I25.10 - Atherosclerotic heart disease of [place] coronary artery without angina pectoris (6) Seizure disorder Current Visit: Yes Status: Chronic - Subjective Interval history: Noted to be drowsy, just returned from undergoing open splenectomy. Pain is controlled at this time. Noted to be on nasogastric tube, no nausea. - Constitutional Vitals: Temp Pulse Resp BP Pulse Ox 97.4 F L 46 16 121/73 97 02/09/17 17:23 02/09/17 17:23 02/09/17 17:23 02/09/17 17:23 02/09/17 17:23 General appearance: Present: A&O X 3 (Drowsy but arousable to verbal and tactile stimuli), answers questions appropriately - Respiratory Respiratory exam: Present: CTAB. Absent: accessory muscle use, rales, rhonchi, wheezes - Cardiovascular Cardiovascular exam: Present: RRR, +S1, +S2. Absent: diastolic murmur, gallop, rubs, systolic murmur - GI/Abdominal GI/Abdominal exam: Present: normal bowel sounds, soft (Left abdominal surgical dressing dry and intact), no peritoneal signs. Absent: distended, tenderness Internal Medicine: Result - Labs CBC & Chem 7: 02/10/17 05:43 02/10/17 05:43 Labs: Short CBC 02/09/17 Range/Units 04:30 WBC 13.6 H (4.3-11.1) K/mcL Hgb 8.7 L (12.9-16.9) g/dL Hct 26.0 L (37.5-50.1) % Plt Count 107 L (140-400) K/mcL Neutrophils # 9.8 H (1.6-8.9) K/mcL BMP 02/09/17 04:30 Sodium 136 Potassium 4.2 Chloride 105 Carbon Dioxide 23 BUN 17 Creatinine 0.89 Glucose 109 H Calcium 8.2 L - ABG Interpretation ABG results: PT/INR, D-dimer PT 13.3 Seconds (9.4-12.1) H 02/03/17 21:35 D-Dimer 917 ng/mLFEU (0-500) H 02/04/17 06:26 - VTE Documentation of Mechanical Device: Graduated compression elastic hosiery Consult Discharge Plan - Plan Referrals: Moe Maya MD [Primary Care Provider] - 02/15/17 2:00 pm
[2017-02-09] MEDS: *HR* Metoprolol 5 MG/5 ML VIAL IVP SCH (20:58)
[2017-02-09] MEDS: Ringers Solution, Lactated 1,000 ML IVC SCH ×3 (21:19→21:29)
[2017-02-10] MEDS: Albuterol 2.5 MG/3 ML NEBULIZER IH SCH ×7 (00:23→23:51)
[2017-02-10] MEDS: *HR* Metoprolol 5 MG/5 ML VIAL IVP SCH ×2 (00:54→05:44)
[2017-02-10] MEDS: Ringers Solution, Lactated 1,000 ML IVC SCH ×2 (05:43)
[2017-02-10] MEDS: MethylPREDNISolone 40 MG/ML VIAL IVP SCH (05:44)
[2017-02-10 06:11] LABS: Basophils % 0.2 %; Hemoglobin 8.8 g/dL (12.9-16.9); Monocytes % 9.9 %
[2017-02-10 06:13] LABS: Basophils # 0.1 K/mcL (0.0-0.2); Hematocrit 26.2 % (37.5-50.1); Immature Granulocytes % 1.9 % (0-4); Lymphocytes # 3.4 K/mcL (0.6-4.6); Lymphocytes % 11.1 %; Mean Corpuscular HGB Conc 33.6 g/dL (31.6-35.5); Mean Corpuscular Hemoglobin 35.6 pg (28.0-33.3); Mean Corpuscular Volume 106.1 fL (83.0-100.0); Mean Platelet Volume 11.4 fL (9.4-12.4); Neutrophils # 23.5 K/mcL (1.6-8.9); Nucleated Red Blood Cells 12.9 /100 WBC (0); Platelet Count 183 K/mcL (140-400); Red Blood Count 2.47 M/mcL (4.19-5.50); Red Cell Distribution Width 17.2 % (11.5-14.5); Segmented Neutrophils % 76.9 %
[2017-02-10 06:32] LABS: Anisocytosis 2+ (Not Present); BUN/Creatinine Ratio 18 (6-26); Blood Urea Nitrogen 19 mg/dL (8-26); Calcium 8.1 mg/dL (8.6-10.8); Carbon Dioxide 24 mEq/L (19-29); Chloride 104 mEq/L (98-109); Glucose 145 mg/dL (70-99); Osmolality,Calculated 287 (280-300); Polychromasia 3+ (Not Present); Potassium 4.5 mEq/L (3.5-4.5); Sodium 136 mEq/L (136-145); eGFR For African Americans > 60 (> 60); eGFR For Non-African Americans > 60 (> 60)
[2017-02-10 06:33] LABS: Platelet Estimate Normal (Normal)
[2017-02-10 06:34] LABS: Macrocytosis Present (Not Present)
[2017-02-10] MEDS: Pantoprazole 40 MG VIAL IV SCH (09:09)
[2017-02-10] MEDS: Levothyroxine Sodium 100 MCG VIAL IVP SCH (09:09)
--- NOTE | 2017-02-10 11:52 | Internal Med Progress Note ---
Date of Encounter: 02/10/17 Time of Encounter: 11:50 - Assessment and plan (1) Acute renal injury Current Visit: Yes Status: Resolved (2) Autoimmune hemolytic anemia Current Visit: Yes Status: Chronic Assessment and plan: He received 2 units PRBC transfusion during this admission and hemoglobin is stable today. Hematology consult appreciated. We will taper down IV Solu- Medrol. Surgery consulted, underwent open splenectomy, postoperative day 1. Postoperative care per surgery. Currently nothing by mouth with NG tube in place, draining some amount of dark fluid. Pain control with morphine FARMWORKER ANIMAL pump. Supportive care. Patient received pneumococcal, meningococcal and H. influenzae B vaccinations. (3) UTI (urinary tract infection) Current Visit: Yes Status: Ruled-out Qualifiers: Urinary tract infection type: site unspecified Hematuria presence: without hematuria Qualified Code(s): N39.0 - Urinary tract infection, site not specified (4) Hypothyroidism Current Visit: Yes Status: Chronic Qualifiers: Hypothyroidism type: unspecified Qualified Code(s): E03.9 - Hypothyroidism , unspecified (5) CAD (coronary artery disease) Current Visit: Yes Status: Chronic Qualifiers: Coronary Disease-Associated Artery/Lesion type: [place] artery [place] vs. transplanted heart: [place] heart Associated angina: without angina Qualified Code(s): I25.10 - Atherosclerotic heart disease of [place] coronary artery without angina pectoris (6) Seizure disorder Current Visit: Yes Status: Chronic Assessment and plan: Stable. We will change phenobarbital to IV form as patient is currently nothing by mouth; - Subjective Interval history: Reports no shortness of breath, chest pain, nausea; post-op pain is controlled, on FARMWORKER ANIMAL pump; has NG tube in place; passing flatus, no bowel movements yet; - Constitutional Vitals: Temp Pulse Resp BP Pulse Ox 97.5 F L 64 15 113/61 95 02/10/17 10:56 02/10/17 10:56 02/10/17 10:56 02/10/17 10:56 02/10/17 10:56 General appearance: Present: A&O X 3, answers questions appropriately - Respiratory Respiratory exam: Present: CTAB (anterolaterally). Absent: accessory muscle use , rales, rhonchi, wheezes - Cardiovascular Cardiovascular exam: Present: RRR, +S1, +S2, systolic murmur. Absent: diastolic murmur, gallop, rubs - GI/Abdominal GI/Abdominal exam: Present: diminished bowel sounds, soft (left upper abdominal transverse surgical incision healing well, dry and denise, valdo intact;), no peritoneal signs. Absent: distended, tenderness - Extremities Exam Extremities exam: Present: full ROM, warm, radial pulses palpable and symetrical. Absent: calf tenderness, cyanotic, pedal edema Internal Medicine: Result - Labs CBC & Chem 7: 02/10/17 05:43 02/10/17 05:43 Labs: Short CBC 02/10/17 Range/Units 05:43 WBC 30.5 H* D (4.3-11.1) K/mcL Hgb 8.8 L (12.9-16.9) g/dL Hct 26.2 L (37.5-50.1) % Plt Count 183 D (140-400) K/mcL Neutrophils # 23.5 H (1.6-8.9) K/mcL BMP 02/10/17 05:43 Sodium 136 Potassium 4.5 Chloride 104 Carbon Dioxide 24 BUN 19 Creatinine 1.05 Glucose 145 H Calcium 8.1 L - ABG Interpretation ABG results: PT/INR, D-dimer PT 13.3 Seconds (9.4-12.1) H 02/03/17 21:35 D-Dimer 917 ng/mLFEU (0-500) H 02/04/17 06:26 - VTE Documentation of Mechanical Device: Graduated compression elastic hosiery Consult Discharge Plan - Plan Referrals: Moe Maya MD [Primary Care Provider] - 02/15/17 2:00 pm
[2017-02-10] MEDS ORDERED: *HR* Metoprolol 5 MG/5 ML VIAL IVP PRN (13:38)
[2017-02-10] MEDS: PHENobarbital 65 MG/ML VIAL IVP SCH ×2 (14:02→20:16)
--- NOTE | 2017-02-10 18:41 | General Surgery Progress Note ---
Date of Encounter: 02/10/17 Time of Encounter: 18:36 Subjective Narrative: Postoperative day 1: Patient denies significant abdominal pain but nursing indicates that the patient is not doing his incentives and activity is limited. The patient is afebrile, pulse 66, respirations 15, blood pressure 108/64. Lungs: Clear, poor inspiratory effort; weak nonexistent cough Abdomen: Soft, quiet; subcostal incision clean and dry. Dressing removed. Urine output approximately 1350 ML for this calendar day, NG output approximately 200 mL Laboratories: White count 30.5 - responsive to IV steroids and reactive to surgery Hemoglobin 8.8 with hematocrit 26.2 - both increased, also likely responsive to IV steroids; H&H elevated despite surgery and intra operative blood loss Platelet count also increased to 183,000. Electrolytes, BUN, creatinine within normal limits Pathology pending Impression: Postoperative day 1, status post splenectomy for autoimmune hemolytic anemia. Satisfactory status Objective Vital Signs - Last 8 Hours Temp Pulse Resp BP Pulse Ox 02/10/17 15:50 16 97 02/10/17 15:35 97.8 F 66 15 108/64 96 02/10/17 11:51 16 95 02/10/17 10:56 97.5 F L 64 15 113/61 95 Intake and Output 02/10/17 02/10/17 02/10/17 07:59 15:59 23:59 Intake Total 1000 / 1000 Output Total 900 / 900 600 / 600 50 / 50 Balance 100 / 100 -600 / -600 -50 / -50 Intake: IV Fluids 1000 / 1000 Lactated Ringers 1,000 ML 1000 / 1000 @ 100 mls/hr IVC .Q10H [facility] Rx#:[id number] Output: Catheter 900 / 900 450 / 450 Gastric Drainage 150 / 150 50 / 50 Right Nare 150 / 150 50 / 50 Other: Meal NPO for breakfast - Labs 02/10/17 05:43 02/10/17 05:43 Diabetes panel 02/10/17 Range/Units 05:43 Sodium 136 (136-145) mEq/L Potassium 4.5 (3.5-4.5) mEq/L Chloride 104 (98-109) mEq/L Carbon Dioxide 24 (19-29) mEq/L BUN 19 (8-26) mg/dL Creatinine 1.05 (0.72-1.25) mg/dL Glucose 145 H (70-99) mg/dL Calcium 8.1 L (8.6-10.8) mg/dL Thyroid panel 02/10/17 Range/Units 05:43 TSH 1.030 (0.350-4.840) mcIU/mL Calcium panel 02/10/17 Range/Units 05:43 Calcium 8.1 L (8.6-10.8) mg/dL Pituitary panel 02/10/17 Range/Units 05:43 Sodium 136 (136-145) mEq/L Potassium 4.5 (3.5-4.5) mEq/L Chloride 104 (98-109) mEq/L Carbon Dioxide 24 (19-29) mEq/L BUN 19 (8-26) mg/dL Creatinine 1.05 (0.72-1.25) mg/dL Glucose 145 H (70-99) mg/dL Calcium 8.1 L (8.6-10.8) mg/dL TSH 1.030 (0.350-4.840) mcIU/mL Adrenal panel 02/10/17 Range/Units 05:43 Sodium 136 (136-145) mEq/L Potassium 4.5 (3.5-4.5) mEq/L Chloride 104 (98-109) mEq/L Carbon Dioxide 24 (19-29) mEq/L BUN 19 (8-26) mg/dL Creatinine 1.05 (0.72-1.25) mg/dL Glucose 145 H (70-99) mg/dL Calcium 8.1 L (8.6-10.8) mg/dL - VTE Documentation of Mechanical Device: Graduated compression elastic hosiery Consult Discharge Plan - Plan Referrals: Moe Maya MD [Primary Care Provider] - 02/15/17 2:00 pm
[2017-02-10] MEDS: D5% in 0.45% NACL 1,000 ML IVC SCH (21:10)
[2017-02-11] MEDS: PHENobarbital 65 MG/ML VIAL IVP SCH ×4 (01:17→20:02)
[2017-02-11] MEDS: Albuterol 2.5 MG/3 ML NEBULIZER IH SCH ×5 (03:48→20:26)
[2017-02-11 05:42] LABS: Hematocrit 25.3 % (37.5-50.1); Hemoglobin 8.1 g/dL (12.9-16.9); Mean Corpuscular Hemoglobin 35.5 pg (28.0-33.3); Mean Platelet Volume 11.3 fL (9.4-12.4); Nucleated Red Blood Cells 20.8 /100 WBC (0); Platelet Count 179 K/mcL (140-400); Red Blood Count 2.28 M/mcL (4.19-5.50); Red Cell Distribution Width 18.5 % (11.5-14.5)
[2017-02-11 05:57] LABS: BUN/Creatinine Ratio 15 (6-26); Blood Urea Nitrogen 13 mg/dL (8-26); Carbon Dioxide 30 mEq/L (19-29); Chloride 100 mEq/L (98-109); Glucose 99 mg/dL (70-99); Osmolality,Calculated 282 (280-300); Sodium 136 mEq/L (136-145); eGFR For African Americans > 60 (> 60); eGFR For Non-African Americans > 60 (> 60)
[2017-02-11 05:58] LABS: Potassium 3.4 mEq/L (3.5-4.5)
[2017-02-11 06:28] LABS: Eosinophils # 0.4 K/mcL (0.0-0.6); Lymphocytes # 5.5 K/mcL (0.6-4.6); Monocytes # 0.8 K/mcL (0.0-1.3); Neutrophils # 14.3 K/mcL (1.6-8.9)
[2017-02-11 06:29] LABS: Anisocytosis 1+ (Not Present); Polychromasia 3+ (Not Present)
[2017-02-11] MEDS: MethylPREDNISolone 40 MG/ML VIAL IVP SCH (08:00)
[2017-02-11] MEDS: Levothyroxine Sodium 100 MCG VIAL IVP SCH (08:00)
[2017-02-11] MEDS: Pantoprazole 40 MG VIAL IV SCH (08:00)
[2017-02-11] MEDS: D5% in 0.45% NACL 1,000 ML IVC SCH (10:19)
--- NOTE | 2017-02-11 14:24 | Internal Med Progress Note ---
Date of Encounter: 02/11/17 Time of Encounter: 14:22 - Assessment and plan (1) Acute renal injury Current Visit: Yes Status: Resolved (2) Autoimmune hemolytic anemia Current Visit: Yes Status: Chronic Assessment and plan: He received 2 units PRBC transfusion during this admission and hemoglobin today is slightly decreased at 8.1, but acceptable. Continue IV Solu-Medrol, plan to increase to twice daily if hemoglobin continues to drop. Surgery consulted, underwent open splenectomy, postoperative day 2. Postoperative care per surgery. Currently nothing by mouth with NG tube in place, draining moderate amount of dark fluid. Pain control with morphine CURATOR [employer] EDUCATION pump. Monitor and supplement electrolytes. Supportive care. Patient received pneumococcal, meningococcal and H. influenzae B vaccinations. (3) UTI (urinary tract infection) Current Visit: Yes Status: Ruled-out Qualifiers: Urinary tract infection type: site unspecified Hematuria presence: without hematuria Qualified Code(s): N39.0 - Urinary tract infection, site not specified (4) Hypothyroidism Current Visit: Yes Status: Chronic Qualifiers: Hypothyroidism type: unspecified Qualified Code(s): E03.9 - Hypothyroidism , unspecified (5) CAD (coronary artery disease) Current Visit: Yes Status: Chronic Qualifiers: Coronary Disease-Associated Artery/Lesion type: [place] artery [place] vs. transplanted heart: [place] heart Associated angina: without angina Qualified Code(s): I25.10 - Atherosclerotic heart disease of [place] coronary artery without angina pectoris (6) Seizure disorder Current Visit: Yes Status: Chronic Assessment and plan: Stable. Continue IV phenobarbital. - Subjective Interval history: Pain is well-controlled; uses CURATOR [employer] EDUCATION pump about 6-7 times a day; no nausea, has flatus; NG tube noted to have around 300cc output AT THIS TIME; - Constitutional Vitals: Temp Pulse Resp BP Pulse Ox 98.1 F 74 17 99/62 94 L 02/11/17 11:37 02/11/17 11:37 02/11/17 11:37 02/11/17 11:37 02/11/17 11:37 General appearance: Present: A&O X 3, answers questions appropriately - Respiratory Respiratory exam: Present: CTAB. Absent: accessory muscle use, rales, rhonchi, wheezes - Cardiovascular Cardiovascular exam: Present: RRR, +S1, +S2. Absent: diastolic murmur, gallop, rubs, systolic murmur - GI/Abdominal GI/Abdominal exam: Present: diminished bowel sounds (beginning to have some bowel sounds on left side), soft (left upper surgical incision healing well), no peritoneal signs. Absent: distended, tenderness - Extremities Exam Extremities exam: Present: full ROM, warm, radial pulses palpable and symetrical. Absent: calf tenderness, cyanotic, pedal edema Internal Medicine: Result - Labs CBC & Chem 7: 02/11/17 04:36 02/11/17 04:36 Labs: Short CBC 02/11/17 Range/Units 04:36 WBC 21.0 H (4.3-11.1) K/mcL Hgb 8.1 L (12.9-16.9) g/dL Hct 25.3 L (37.5-50.1) % Plt Count 179 (140-400) K/mcL Neutrophils # 14.3 H (1.6-8.9) K/mcL BMP 02/11/17 04:36 Sodium 136 Potassium 3.4 L D Chloride 100 Carbon Dioxide 30 H BUN 13 Creatinine 0.88 Glucose 99 Calcium 8.0 L - ABG Interpretation ABG results: PT/INR, D-dimer PT 13.3 Seconds (9.4-12.1) H 02/03/17 21:35 D-Dimer 917 ng/mLFEU (0-500) H 02/04/17 06:26 - VTE Documentation of Mechanical Device: Intermittent pneumatic compression device Consult Discharge Plan - Plan Referrals: Moe Maya MD [Primary Care Provider] - 02/15/17 2:00 pm
[2017-02-11] MEDS ORDERED: *HR* Morphine 30 MG/ 30 ML PCA IVC PRN (19:35)
--- NOTE | 2017-02-11 19:44 | General Surgery Progress Note ---
Date of Encounter: 02/11/17 Time of Encounter: 19:36 Subjective Patient reports: no new complaints Narrative: postoperative day 2: Patient denies significant abdominal pain. He is complaining of thirst. he is also requesting to be out of bed The patient is afebrile, pulse 74-90; respirations 16, blood pressure 108/71 NG output - 550 mL, bilious - excessive due to consumption of ice chips. This despite an order for the patient to be NPO following splenectomy. Lungs: Clear to auscultation Abdomen: Soft, few bowel sounds. No flatus or BM. Subcostal incision clean and dry Urine output 1150 mL this calendar day Labs: white count improved to 21,000 - patient still on steroids Hemoglobin 8.1, hematocrit 25.3; platelet count 179,000 - likely response to steroids and removal of the spleen for treatment of autoimmune hemolytic anemia electrolytes, BUN, creatinine - notable for hypokalemia - 3.4. No potassium given today. Impression: satisfactory post op recovery - POD #2, s/p open splenectomy Recommendations - remove NG (performed by physician); keep NPO for now remove Aponte in AM decrease IV fluids and narcotic analgesics continue to encourage incentive spirometry assist patient in activity out of bed Objective Vital Signs - Last 8 Hours Temp Pulse Resp BP Pulse Ox 02/11/17 16:32 97.9 F 90 16 108/71 91 L 02/11/17 15:28 16 108/71 96 02/11/17 11:37 98.1 F 74 17 99/62 94 L Intake and Output 02/11/17 02/11/17 02/11/17 07:59 15:59 23:59 Intake Total 1000 / 1000 Output Total 950 / 950 1700 / 1700 Balance -950 / -950 -700 / -700 Intake: IV Fluids 1000 / 1000 D5% And 0.45% Nacl 1000 1000 / 1000 Ml Bag 1,000 ML @ 75 mls/ hr IVC .[id number] [facility] Rx#: [id number] Output: Urine 950 / 950 2-way Urethral 950 / 950 Catheter 400 / 400 750 / 750 Gastric Drainage 550 / 550 Right Nare 550 / 550 Other: Meal NPO NPO for dinner Percent of Meal Consumed 0% Weight 84.595 kg 82.1 kg Patient Weight 02/11/17 23:59 Weight 82.1 kg - Labs 02/11/17 04:36 02/11/17 04:36 Diabetes panel 02/11/17 Range/Units 04:36 Sodium 136 (136-145) mEq/L Potassium 3.4 L D (3.5-4.5) mEq/L Chloride 100 (98-109) mEq/L Carbon Dioxide 30 H (19-29) mEq/L BUN 13 (8-26) mg/dL Creatinine 0.88 (0.72-1.25) mg/dL Glucose 99 (70-99) mg/dL Calcium 8.0 L (8.6-10.8) mg/dL Calcium panel 02/11/17 Range/Units 04:36 Calcium 8.0 L (8.6-10.8) mg/dL Pituitary panel 02/11/17 Range/Units 04:36 Sodium 136 (136-145) mEq/L Potassium 3.4 L D (3.5-4.5) mEq/L Chloride 100 (98-109) mEq/L Carbon Dioxide 30 H (19-29) mEq/L BUN 13 (8-26) mg/dL Creatinine 0.88 (0.72-1.25) mg/dL Glucose 99 (70-99) mg/dL Calcium 8.0 L (8.6-10.8) mg/dL Adrenal panel 02/11/17 Range/Units 04:36 Sodium 136 (136-145) mEq/L Potassium 3.4 L D (3.5-4.5) mEq/L Chloride 100 (98-109) mEq/L Carbon Dioxide 30 H (19-29) mEq/L BUN 13 (8-26) mg/dL Creatinine 0.88 (0.72-1.25) mg/dL Glucose 99 (70-99) mg/dL Calcium 8.0 L (8.6-10.8) mg/dL - VTE Documentation of Mechanical Device: Intermittent pneumatic compression device Consult Discharge Plan - Plan Referrals: Moe Maya MD [Primary Care Provider] - 02/15/17 2:00 pm
[2017-02-12] MEDS: Albuterol 2.5 MG/3 ML NEBULIZER IH SCH ×7 (00:10→23:17)
[2017-02-12] MEDS: PHENobarbital 65 MG/ML VIAL IVP SCH ×2 (01:15→11:04)
[2017-02-12] MEDS: D5% in 0.45% NACL 1,000 ML IVC SCH ×2 (01:22→18:23)
[2017-02-12 05:00] LABS: Basophils % 0.2 %; Eosinophils # 0.4 K/mcL (0.0-0.6); Eosinophils % 1.8 %; Hemoglobin 9.2 g/dL (12.9-16.9); Immature Granulocytes % 2.3 % (0-4); Lymphocytes # 4.7 K/mcL (0.6-4.6); Lymphocytes % 23.6 %; Mean Corpuscular HGB Conc 31.7 g/dL (31.6-35.5); Mean Corpuscular Volume 110.3 fL (83.0-100.0); Mean Platelet Volume 10.8 fL (9.4-12.4); Monocytes # 3.5 K/mcL (0.0-1.3); Monocytes % 17.8 %; Neutrophils # 10.7 K/mcL (1.6-8.9); Nucleated Red Blood Cells 9.2 /100 WBC (0); Platelet Count 250 K/mcL (140-400); Red Blood Count 2.63 M/mcL (4.19-5.50); Red Cell Distribution Width 18.5 % (11.5-14.5); Segmented Neutrophils % 54.3 %
[2017-02-12 05:15] LABS: BUN/Creatinine Ratio 11 (6-26); Blood Urea Nitrogen 10 mg/dL (8-26); Calcium 8.3 mg/dL (8.6-10.8); Carbon Dioxide 29 mEq/L (19-29); Chloride 101 mEq/L (98-109); Glucose 99 mg/dL (70-99); Magnesium 1.8 mg/dL (1.6-2.6); Osmolality,Calculated 283 (280-300); Phosphorous 3.2 mg/dL (2.3-4.7); Potassium 3.3 mEq/L (3.5-4.5); Sodium 137 mEq/L (136-145); eGFR For African Americans > 60 (> 60); eGFR For Non-African Americans > 60 (> 60)
[2017-02-12 05:33] LABS: Anisocytosis 1+ (Not Present); Macrocytosis Present (Not Present); Platelet Estimate Normal (Normal); Polychromasia 1+ (Not Present)
[2017-02-12] MEDS: Levothyroxine Sodium 100 MCG VIAL IVP SCH (11:04)
[2017-02-12] MEDS: MethylPREDNISolone 40 MG/ML VIAL IVP SCH (11:05)
[2017-02-12] MEDS: Pantoprazole 40 MG VIAL IV SCH (11:05)
[2017-02-12] MEDS ORDERED: Acetaminophen 325 MG TABLET PO PRN (12:40)
--- NOTE | 2017-02-12 12:46 | General Surgery Progress Note ---
Date of Encounter: 02/12/17 Time of Encounter: 12:30 Subjective Patient reports: no new complaints Narrative: Postoperative day 2: Patient indicates that he is feeling well, denies significant incisional pain. Afebrile, 97.8; pulse 80, respirations 16, blood pressure 107/56. Lungs: Clear slightly diminished breath sounds left base - no rales or wheezing Abdomen: Soft, nontender. Active bowel sounds. Incision clean and dry. Laboratories: White count 19.7; hemoglobin 9.2 with hematocrit 29.0. Platelet count 250,000 Electrolytes, BUN, creatinine notable for potassium of 3.3 Impression: Autoimmune hemolytic anemia, postoperative day #2 status post splenectomy Satisfactory response/recovery Plan: allow clear liquids stop SAMPLING EXPERT - oral analgesics resume home meds (convert IV meds to oral) oral potassium Objective Vital Signs - Last 8 Hours Temp Pulse Resp BP Pulse Ox 02/12/17 11:45 18 93 L 02/12/17 11:02 97.8 F 80 16 107/56 97 02/12/17 07:29 18 95 02/12/17 07:25 97.7 F 73 16 95/56 94 L Intake and Output 02/11/17 02/12/17 02/12/17 23:59 07:59 15:59 Intake Total 700 / 700 Output Total 300 / 300 250 / 250 Balance 400 / 400 -250 / -250 Intake: IV Fluids 700 / 700 D5% And 0.45% Nacl 1000 700 / 700 Ml Bag 1,000 ML @ 75 mls/ hr IVC .[id number] [facility] Rx#: [id number] Output: Catheter 300 / 300 250 / 250 Other: Meal NPO for dinner Percent of Meal Consumed 0% Weight 83 kg Patient Weight 02/12/17 23:59 Weight 83 kg - Labs 02/12/17 04:18 02/12/17 04:18 Diabetes panel 02/12/17 Range/Units 04:18 Sodium 137 (136-145) mEq/L Potassium 3.3 L (3.5-4.5) mEq/L Chloride 101 (98-109) mEq/L Carbon Dioxide 29 (19-29) mEq/L BUN 10 (8-26) mg/dL Creatinine 0.87 (0.72-1.25) mg/dL Glucose 99 (70-99) mg/dL Calcium 8.3 L (8.6-10.8) mg/dL Calcium panel 02/12/17 Range/Units 04:18 Calcium 8.3 L (8.6-10.8) mg/dL Phosphorus 3.2 (2.3-4.7) mg/dL Pituitary panel 02/12/17 Range/Units 04:18 Sodium 137 (136-145) mEq/L Potassium 3.3 L (3.5-4.5) mEq/L Chloride 101 (98-109) mEq/L Carbon Dioxide 29 (19-29) mEq/L BUN 10 (8-26) mg/dL Creatinine 0.87 (0.72-1.25) mg/dL Glucose 99 (70-99) mg/dL Calcium 8.3 L (8.6-10.8) mg/dL Adrenal panel 02/12/17 Range/Units 04:18 Sodium 137 (136-145) mEq/L Potassium 3.3 L (3.5-4.5) mEq/L Chloride 101 (98-109) mEq/L Carbon Dioxide 29 (19-29) mEq/L BUN 10 (8-26) mg/dL Creatinine 0.87 (0.72-1.25) mg/dL Glucose 99 (70-99) mg/dL Calcium 8.3 L (8.6-10.8) mg/dL - VTE Documentation of Mechanical Device: Intermittent pneumatic compression device Consult Discharge Plan - Plan Referrals: Moe Maya MD [Primary Care Provider] - 02/15/17 2:00 pm
--- NOTE | 2017-02-12 13:55 | Internal Med Progress Note ---
Date of Encounter: 02/12/17 Time of Encounter: 13:53 - Assessment and plan (1) Acute renal injury Current Visit: Yes Status: Resolved (2) Autoimmune hemolytic anemia Current Visit: Yes Status: Chronic Assessment and plan: Hemoglobin noted to be 9.2, improving. He received 2 units PRBC transfusion during this admission; we will change steroids to oral prednisone, to complete a 2 week taper. Surgery consulted, underwent open splenectomy, postoperative day 3. Postoperative care per surgery. NG tube and FEATHER STITCHER pump discontinued. Continue clear liquid diet as tolerated. Pain controlled with oral Percocet, currently well controlled. Monitor and supplement electrolytes. Encourage incentive spirometry and ambulation. Supportive care. Patient received pneumococcal, meningococcal and H. influenzae B vaccinations. (3) UTI (urinary tract infection) Current Visit: Yes Status: Ruled-out Qualifiers: Urinary tract infection type: site unspecified Hematuria presence: without hematuria Qualified Code(s): N39.0 - Urinary tract infection, site not specified (4) Hypothyroidism Current Visit: Yes Status: Chronic Assessment and plan: Resume oral levothyroxine. Qualifiers: Hypothyroidism type: unspecified Qualified Code(s): E03.9 - Hypothyroidism , unspecified (5) CAD (coronary artery disease) Current Visit: Yes Status: Chronic Qualifiers: Coronary Disease-Associated Artery/Lesion type: [place] artery [place] vs. transplanted heart: [place] heart Associated angina: without angina Qualified Code(s): I25.10 - Atherosclerotic heart disease of [place] coronary artery without angina pectoris (6) Seizure disorder Current Visit: Yes Status: Chronic Assessment and plan: Resume oral phenobarbital. - Subjective Interval history: Pain is well-controlled, off FEATHER STITCHER pump; noted to be sitting up in chair today; off NG tube and [place] catheter; no nausea, vomiting; - Constitutional Vitals: Temp Pulse Resp BP Pulse Ox 97.8 F 80 18 107/56 93 L 02/12/17 11:02 02/12/17 11:02 02/12/17 11:45 02/12/17 11:02 02/12/17 11:45 General appearance: Present: A&O X 3, answers questions appropriately - Respiratory Respiratory exam: Present: CTAB. Absent: accessory muscle use, rales, rhonchi, wheezes - Cardiovascular Cardiovascular exam: Present: RRR, +S1, +S2. Absent: diastolic murmur, gallop, rubs, systolic murmur - GI/Abdominal GI/Abdominal exam: Present: normal bowel sounds, soft (left upper abdominal surgical incision healing well), no peritoneal signs. Absent: distended, tenderness Internal Medicine: Result - Labs CBC & Chem 7: 02/12/17 04:18 02/12/17 04:18 Labs: Short CBC 02/12/17 Range/Units 04:18 WBC 19.7 H (4.3-11.1) K/mcL Hgb 9.2 L (12.9-16.9) g/dL Hct 29.0 L (37.5-50.1) % Plt Count 250 (140-400) K/mcL Neutrophils # 10.7 H (1.6-8.9) K/mcL BMP 02/12/17 04:18 Sodium 137 Potassium 3.3 L Chloride 101 Carbon Dioxide 29 BUN 10 Creatinine 0.87 Glucose 99 Calcium 8.3 L - ABG Interpretation ABG results: PT/INR, D-dimer PT 13.3 Seconds (9.4-12.1) H 02/03/17 21:35 D-Dimer 917 ng/mLFEU (0-500) H 02/04/17 06:26 - VTE Documentation of Mechanical Device: Intermittent pneumatic compression device Consult Discharge Plan - Plan Referrals: Moe Maya MD [Primary Care Provider] - 02/15/17 2:00 pm
[2017-02-12] MEDS: *HR* HYDROcodone/Acet 5/325 mg TABLET PO PRN (18:24)
[2017-02-12] MEDS: Metoprolol XL (24 HR) Succ 25 MG TAB.ER.24H PO SCH (18:24)
[2017-02-12] MEDS: Folic Acid 1 MG TABLET PO SCH (18:25)
[2017-02-12] MEDS: PHENobarbital 32.4 MG TABLET PO SCH ×2 (18:25→20:03)
[2017-02-13] MEDS: Albuterol 2.5 MG/3 ML NEBULIZER IH SCH ×5 (04:23→20:43)
[2017-02-13 04:27] LABS: Basophils % 0.2 %; Eosinophils # 0.4 K/mcL (0.0-0.6); Hematocrit 28.8 % (37.5-50.1); Hemoglobin 9.1 g/dL (12.9-16.9); Immature Granulocytes % 2.4 % (0-4); Lymphocytes # 4.3 K/mcL (0.6-4.6); Lymphocytes % 24.4 %; Mean Corpuscular HGB Conc 31.6 g/dL (31.6-35.5); Mean Corpuscular Hemoglobin 33.7 pg (28.0-33.3); Mean Corpuscular Volume 106.7 fL (83.0-100.0); Mean Platelet Volume 10.6 fL (9.4-12.4); Monocytes # 2.8 K/mcL (0.0-1.3); Monocytes % 15.5 %; Neutrophils # 9.9 K/mcL (1.6-8.9); Nucleated Red Blood Cells 3.3 /100 WBC (0); Platelet Count 292 K/mcL (140-400); Red Cell Distribution Width 16.7 % (11.5-14.5); Segmented Neutrophils % 55.5 %
[2017-02-13 04:50] LABS: BUN/Creatinine Ratio 14 (6-26); Blood Urea Nitrogen 12 mg/dL (8-26); Calcium 8.5 mg/dL (8.6-10.8); Carbon Dioxide 25 mEq/L (19-29); Chloride 102 mEq/L (98-109); Glucose 93 mg/dL (70-99); Osmolality,Calculated 279 (280-300); Potassium 3.7 mEq/L (3.5-4.5); Sodium 135 mEq/L (136-145); eGFR For African Americans > 60 (> 60); eGFR For Non-African Americans > 60 (> 60)
[2017-02-13] MEDS: *HR* HYDROcodone/Acet 5/325 mg TABLET PO PRN ×4 (05:09→16:51)
[2017-02-13] MEDS: Metoprolol XL (24 HR) Succ 25 MG TAB.ER.24H PO SCH (10:05)
[2017-02-13] MEDS: PHENobarbital 32.4 MG TABLET PO SCH ×4 (10:05→20:33)
[2017-02-13] MEDS: predniSONE 20 MG TABLET PO SCH (10:05)
[2017-02-13] MEDS: Folic Acid 1 MG TABLET PO SCH (10:05)
--- NOTE | 2017-02-13 11:25 | General Surgery Progress Note ---
Date of Encounter: 02/13/17 Time of Encounter: 11:18 Subjective Patient reports: no new complaints, feels better Narrative: postoperative day 3: afebrile, pulse 78, respirations 16, blood pressure 88/50 ( Previously 97/58) Lungs: Clear, no obvious abdominal pain with deep inspiration Cardiac: Regular rate, no appreciable murmurs Abdomen: Soft, nontender. Left subcostal incision dry, healing well. No obvious fascial defects. Active Bowel sounds. Laboratories: WBC 17.7; hemoglobin 9.1, hematocrit 28.8; platelet count 292,000 electrolytes notable for sodium 135, otherwise within normal limits. BUN 12, Cr 0.87 Impression: Autoimmune hemolytic anemia refractory to medical management - POD open splenectomy. Doing well post op. Hypotension ? Plan: full lliquids, advance diet to regular as tolerated monitor BP Objective Vital Signs - Last 8 Hours Temp Pulse Resp BP Pulse Ox 02/13/17 07:42 97.8 F 78 16 88/50 94 L 02/13/17 04:23 16 96 02/13/17 03:54 98.1 F 75 16 97/58 94 L Intake and Output 02/12/17 02/13/17 02/13/17 23:59 07:59 15:59 Intake Total 1400 / 1400 0 / 0 360 / 360 Output Total 950 / 950 250 / 250 Balance 450 / 450 -250 / -250 360 / 360 Intake: IV Fluids 1000 / 1000 D5% And 0.45% Nacl 1000 1000 / 1000 Ml Bag 1,000 ML @ 50 mls/ hr IVC .Q20H [facility] Rx#: [id number] Oral 400 / 400 0 / 0 360 / 360 Output: Urine 950 / 950 250 / 250 Other: Meal Breakfast Weight 82.554 kg Patient Weight 02/13/17 23:59 Weight 82.554 kg - Labs 02/13/17 03:45 02/13/17 03:45 Diabetes panel 02/13/17 Range/Units 03:45 Sodium 135 L (136-145) mEq/L Potassium 3.7 (3.5-4.5) mEq/L Chloride 102 (98-109) mEq/L Carbon Dioxide 25 (19-29) mEq/L BUN 12 (8-26) mg/dL Creatinine 0.87 (0.72-1.25) mg/dL Glucose 93 (70-99) mg/dL Calcium 8.5 L (8.6-10.8) mg/dL Calcium panel 02/13/17 Range/Units 03:45 Calcium 8.5 L (8.6-10.8) mg/dL Pituitary panel 02/13/17 Range/Units 03:45 Sodium 135 L (136-145) mEq/L Potassium 3.7 (3.5-4.5) mEq/L Chloride 102 (98-109) mEq/L Carbon Dioxide 25 (19-29) mEq/L BUN 12 (8-26) mg/dL Creatinine 0.87 (0.72-1.25) mg/dL Glucose 93 (70-99) mg/dL Calcium 8.5 L (8.6-10.8) mg/dL Adrenal panel 02/13/17 Range/Units 03:45 Sodium 135 L (136-145) mEq/L Potassium 3.7 (3.5-4.5) mEq/L Chloride 102 (98-109) mEq/L Carbon Dioxide 25 (19-29) mEq/L BUN 12 (8-26) mg/dL Creatinine 0.87 (0.72-1.25) mg/dL Glucose 93 (70-99) mg/dL Calcium 8.5 L (8.6-10.8) mg/dL - VTE Documentation of Mechanical Device: Intermittent pneumatic compression device Consult Discharge Plan - Plan Referrals: Moe Maya MD [Primary Care Provider] - 02/15/17 2:00 pm
--- NOTE | 2017-02-13 14:39 | Internal Med Progress Note ---
Date of Encounter: 02/13/17 Time of Encounter: 14:39 - Assessment and plan (1) Acute renal injury Current Visit: Yes Status: Resolved (2) Autoimmune hemolytic anemia Current Visit: Yes Status: Chronic Assessment and plan: Hb stable. He received 2 units PRBC transfusion during this admission; Plan to taper down steroids. Improving reactive leukocytosis after splenectomy. Surgery on board, underwent open splenectomy, postoperative day 4. Postoperative care per surgery. On full liquid diet, to advance as tolerated. Pain controlled with oral Percocet, currently well controlled. Monitor and supplement electrolytes. Encourage incentive spirometry and ambulation. Supportive care. Patient received pneumococcal, meningococcal and H. influenzae B vaccinations. (3) UTI (urinary tract infection) Current Visit: Yes Status: Ruled-out Qualifiers: Urinary tract infection type: site unspecified Hematuria presence: without hematuria Qualified Code(s): N39.0 - Urinary tract infection, site not specified (4) Hypothyroidism Current Visit: Yes Status: Chronic Assessment and plan: Resume oral levothyroxine. Qualifiers: Hypothyroidism type: unspecified Qualified Code(s): E03.9 - Hypothyroidism , unspecified (5) CAD (coronary artery disease) Current Visit: Yes Status: Chronic Qualifiers: Coronary Disease-Associated Artery/Lesion type: [place] artery [place] vs. transplanted heart: [place] heart Associated angina: without angina Qualified Code(s): I25.10 - Atherosclerotic heart disease of [place] coronary artery without angina pectoris (6) Seizure disorder Current Visit: Yes Status: Chronic Assessment and plan: continue oral phenobarbital. - Subjective Interval history: Recovering well since surgery; tolerates full liquids; passing flatus, no BMs yet; post-op pain well-controlled with oral analgesics; - Constitutional Vitals: Temp Pulse Resp BP Pulse Ox 97.9 F 79 16 110/69 93 L 02/13/17 12:39 02/13/17 12:39 02/13/17 12:39 02/13/17 12:39 02/13/17 12:39 General appearance: Present: A&O X 3, answers questions appropriately - Respiratory Respiratory exam: Present: CTAB. Absent: accessory muscle use, rales, rhonchi, wheezes - Cardiovascular Cardiovascular exam: Present: RRR, +S1, +S2. Absent: diastolic murmur, gallop, rubs, systolic murmur - GI/Abdominal GI/Abdominal exam: Present: normal bowel sounds, soft, no peritoneal signs. Absent: distended, tenderness Internal Medicine: Result - Labs CBC & Chem 7: 02/13/17 03:45 02/13/17 03:45 Labs: Short CBC 02/13/17 Range/Units 03:45 WBC 17.7 H (4.3-11.1) K/mcL Hgb 9.1 L (12.9-16.9) g/dL Hct 28.8 L (37.5-50.1) % Plt Count 292 (140-400) K/mcL Neutrophils # 9.9 H (1.6-8.9) K/mcL BMP 02/13/17 03:45 Sodium 135 L Potassium 3.7 Chloride 102 Carbon Dioxide 25 BUN 12 Creatinine 0.87 Glucose 93 Calcium 8.5 L - ABG Interpretation ABG results: PT/INR, D-dimer PT 13.3 Seconds (9.4-12.1) H 02/03/17 21:35 D-Dimer 917 ng/mLFEU (0-500) H 02/04/17 06:26 - VTE Documentation of Mechanical Device: Intermittent pneumatic compression device Consult Discharge Plan - Plan Referrals: Moe Maya MD [Primary Care Provider] - 02/15/17 2:00 pm
--- NOTE | 2017-02-13 16:22 | Oncology Inp Progress Note ---
Date of Encounter: 02/13/17 Time of Encounter: 11:00 Oncology: Subj Interval history: Patient seen and examined at bedside. Chart reviewed for interval details and ongoing care by hospital team is much appreciated. 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 He is doing well and has no new physical complaints. CBC shows expected improvement in his hemoglobin. He has some reactive leukocytosis which is expected with splenectomy. I also discussed this case with Dr. Brunson who is satisfied with his post op progress. No other new issues. Review of systems: 12 point review of systems as noted above.All other systems are negative: Physical exam: Selected Entries 02/13/17 12:39 Temperature 97.9 F Temperature Source Oral Pulse Rate 79 Respiratory Rate 16 Blood Pressure 110/69 O2 Sat by Pulse Oximetry 93 L GENERAL: Alert and oriented, comfortable appearing. Mental Status: Affect appropriate for circumstances Skin: No rashes or petechiae. No evidence of skin malignancy Extremities: No edema. No calf swelling or tenderness. No joint deformity. Neurologic: Global weakness but no focal sensorimotor abnormalities. Results: Laboratory Last Values WBC 17.7 K/mcL (4.3-11.1) H 02/13/17 03:45 RBC 2.70 M/mcL (4.19-5.50) L 02/13/17 03:45 Hgb 9.1 g/dL (12.9-16.9) L 02/13/17 03:45 Hct 28.8 % (37.5-50.1) L 02/13/17 03:45 MCV 106.7 fL (83.0-100.0) H 02/13/17 03:45 MCH 33.7 pg (28.0-33.3) H 02/13/17 03:45 MCHC 31.6 g/dL (31.6-35.5) 02/13/17 03:45 RDW 16.7 % (11.5-14.5) H 02/13/17 03:45 Plt Count 292 K/mcL (140-400) 02/13/17 03:45 MPV 10.6 fL (9.4-12.4) 02/13/17 03:45 Reticulocyte # 0.39 M/mcL (0.05-0.10) H 02/05/17 04:18 Immature Gran % 2.4 % (0-4) 02/13/17 03:45 Seg Neutrophils % 55.5 % 02/13/17 03:45 Lymphocytes % 24.4 % 02/13/17 03:45 Monocytes % 15.5 % 02/13/17 03:45 Eosinophils % 2.0 % 02/13/17 03:45 Basophils % 0.2 % 02/13/17 03:45 Neutrophils # 9.9 K/mcL (1.6-8.9) H 02/13/17 03:45 Lymphocytes # 4.3 K/mcL (0.6-4.6) 02/13/17 03:45 Monocytes # 2.8 K/mcL (0.0-1.3) H 02/13/17 03:45 Eosinophils # 0.4 K/mcL (0.0-0.6) 02/13/17 03:45 Basophils # 0.0 K/mcL (0.0-0.2) 02/13/17 03:45 Nucleated RBCs/100 WBC 3.3 /100 WBC (0) H 02/13/17 03:45 Platelet Estimate Normal (Normal) 02/12/17 04:18 Polychromasia 1+ (Not Present) A 02/12/17 04:18 Anisocytosis 1+ (Not Present) A 02/12/17 04:18 Macrocytosis Present (Not Present) A 02/12/17 04:18 Tear Drop Cells 1+ (Not Present) A 02/06/17 03:58 Percent Retic 19.0 % (1.6-2.8) H 02/05/17 04:18 Immature Retic Fraction 37.9 % (11.0-38.0) 02/05/17 04:18 Retic Hgb Equivalent 32.7 pg (28.61-36.33) 02/05/17 04:18 PT 13.3 Seconds (9.4-12.1) H 02/03/17 21:35 INR 1.2 02/03/17 21:35 APTT 34.0 Seconds (26.0-36.0) 02/03/17 21:35 D-Dimer 917 ng/mLFEU (0-500) H 02/04/17 06:26 Sodium 135 mEq/L (136-145) L 02/13/17 03:45 Potassium 3.7 mEq/L (3.5-4.5) 02/13/17 03:45 Chloride 102 mEq/L (98-109) 02/13/17 03:45 Carbon Dioxide 25 mEq/L (19-29) 02/13/17 03:45 BUN 12 mg/dL (8-26) 02/13/17 03:45 Creatinine 0.87 mg/dL (0.72-1.25) 02/13/17 03:45 Est GFR ( Amer) > 60 (> 60) 02/13/17 03:45 Est GFR (Non-Af Amer) > 60 (> 60) 02/13/17 03:45 BUN/Creatinine Ratio 14 (6-26) 02/13/17 03:45 Glucose 93 mg/dL (70-99) 02/13/17 03:45 Calculated Osmolality 279 (280-300) L 02/13/17 03:45 Calcium 8.5 mg/dL (8.6-10.8) L 02/13/17 03:45 Phosphorus 3.2 mg/dL (2.3-4.7) 02/12/17 04:18 Magnesium 1.8 mg/dL (1.6-2.6) 02/12/17 04:18 Iron 102 mcg/dL (65-175) 02/05/17 04:18 % Saturation 52 % (20-55) 02/05/17 04:18 Transferrin 140 mg/dL (174-364) L 02/05/17 04:18 Ferritin 2202 ng/ml (22-275) H 02/05/17 04:18 Total Bilirubin 1.5 mg/dL (0.2-1.2) H D 02/05/17 04:18 Direct Bilirubin 0.6 mg/dL (0.0-0.5) H 02/05/17 04:18 Indirect Bilirubin 0.9 mg/dL (0.0-1.2) 02/05/17 04:18 AST 27 Units/L (5-34) 02/05/17 04:18 ALT 14 Units/L (0-55) 02/05/17 04:18 Alkaline Phosphatase 64 Units/L (38-126) 02/05/17 04:18 Lactate Dehydrogenase 435 Units/L (159-327) H 02/05/17 04:18 Troponin I 0.00 ng/mL (0-0.03) 02/03/17 21:35 B-Natriuretic Peptide 26 pg/mL (0-100) 02/03/17 21:35 Serum Total Protein 6.8 g/dL (6.0-8.3) 02/05/17 04:18 Albumin 3.5 g/dL (3.5-5.0) 02/05/17 04:18 Globulin 3.3 g/dL (2.4-3.5) 02/05/17 04:18 Albumin/Globulin Ratio 1.1 (1.1-2.2) 02/05/17 04:18 Lipase 13 Units/L (8-78) 02/05/17 04:18 Folate 12.0 ng/mL (7.0-31.4) 02/05/17 04:18 TSH 1.030 mcIU/mL (0.350-4.840) 02/10/17 05:43 Urine Color Yellow (Yellow) 02/03/17 23:43 Urine Clarity Clear (Clear) 02/03/17 23:43 Urine pH 5.5 pH Units (5.0-8.0) 02/03/17 23:43 Ur Specific [place] 1.025 (1.010-1.025) 02/03/17 23:43 Urine Protein 30 mg/dL (Neg-Trace) H 02/03/17 23:43 Urine Glucose (UA) Normal mg/dL (Normal) 02/03/17 23:43 Urine Ketones Negative mg/dL (Negative) 02/03/17 23:43 Urine Blood Trace-lysed (Negative) H 02/03/17 23:43 Urine Nitrite Positive (Negative) A 02/03/17 23:43 Urine Bilirubin Small (Negative) H 02/03/17 23:43 Urine Urobilinogen Normal mg/dL (Normal) 02/03/17 23:43 Ur Leukocyte Esterase Negative (Negative) 02/03/17 23:43 Urine Microscopic WBC 0-3 per hpf (0-3) 02/03/17 23:43 Ur Squamous Epith Cells Few per lpf (None-Few) 02/03/17 23:43 Urine Bacteria Moderate per hpf (None-Few) H 02/03/17 23:43 Urine Mucus Few (Few) 02/03/17 23:43 Ur Culture Indicated? YES (NO) A 02/03/17 23:43 Stool Occult Blood Negative (Negative) 02/04/17 00:31 Blood Type A POSITIVE 02/04/17 06:26 Antibody Screen POSITIVE 02/04/17 06:26 Antibody Identification Warm Auto Antibody 02/04/17 06:26 Crossmatch See Detail 02/04/17 06:26 Impression/recommendations: Autoimmune hemolytic anemia: He is now day 3 postsplenectomy after failure of medical management including steroids, Rituxan etc. Doing well post splenectomy and maintaining stable hemoglobin. No evidence of ongoing hemolysis. Given his overall clinical improvement, he is anticipating discharge in the next day or so which I think is very reasonable. Post splenectomy state: He has expected leukocytosis and may develop additional thrombocytosis which is typical findings in the asplenic state and usually are of no clinical consequence. From reviewing his records, he has started his postsplenectomy vaccine series and has received meningococcal and pneumococcal vaccines. He will also need Hib vaccination which can be arranged as an outpatient. Upon discharge, he will return to established follow-up with Dr. Rush. We'll follow the patient along side you during this hospitalization but please do not hesitate to call regarding interval hematologic questions as they arise. Thank you for your excellent ongoing care for allowing us to see him while in- house. This report was created using voice recognition software and may contain errors. It was signed but not edited to expedite communication. - Constitutional Vitals: Vital Signs Temp Pulse Resp BP Pulse Ox 02/13/17 15:14 97.5 F L 67 16 110/65 94 L 02/13/17 12:39 97.9 F 79 16 110/69 93 L 02/13/17 11:21 18 99 02/13/17 07:42 97.8 F 78 16 88/50 94 L 02/13/17 04:23 16 96 02/13/17 03:54 98.1 F 75 16 97/58 94 L 02/12/17 23:34 97.8 F 84 16 109/61 93 L 02/12/17 23:17 16 94 L 02/12/17 20:39 18 95 02/12/17 19:12 97.6 F 84 16 122/74 96 02/12/17 16:35 18 95 Intake and Output 02/13/17 02/13/17 02/13/17 00:59 08:59 16:59 Intake Total 1400 / 1400 0 / 0 360 / 360 Output Total 750 / 750 250 / 250 700 / 700 Balance 650 / 650 -250 / -250 -340 / -340 Intake: IV Fluids 1000 / 1000 D5% And 0.45% Nacl 1000 1000 / 1000 Ml Bag 1,000 ML @ 50 mls/ hr IVC .Q20H [facility] Rx#: [id number] Oral 400 / 400 0 / 0 360 / 360 Output: Urine 750 / 750 250 / 250 700 / 700 Other: Meal Breakfast Percent of Meal Consumed 0% Weight 82.554 kg Patient Weight 02/14/17 00:59 Weight 82.554 kg Oncology: Obj Data - Labs CBC & Chem 7: 02/13/17 03:45 02/13/17 03:45 Labs: Laboratory Results - last 24 hr 02/13/17 02/13/17 03:45 03:45 WBC 17.7 H RBC 2.70 L Hgb 9.1 L Hct 28.8 L MCV 106.7 H MCH 33.7 H MCHC 31.6 RDW 16.7 H Plt Count 292 MPV 10.6 Immature Gran % 2.4 Seg Neutrophils % 55.5 Lymphocytes % 24.4 Monocytes % 15.5 Eosinophils % 2.0 Basophils % 0.2 Neutrophils # 9.9 H Lymphocytes # 4.3 Monocytes # 2.8 H Eosinophils # 0.4 Basophils # 0.0 Nucleated RBCs/100 WBC 3.3 H Sodium 135 L Potassium 3.7 Chloride 102 Carbon Dioxide 25 BUN 12 Creatinine 0.87 Est GFR ( Amer) > 60 Est GFR (Non-Af Amer) > 60 BUN/Creatinine Ratio 14 Glucose 93 Calculated Osmolality 279 L Calcium 8.5 L - ABG Interpretation ABG results: PT/INR, D-dimer PT 13.3 Seconds (9.4-12.1) H 02/03/17 21:35 D-Dimer 917 ng/mLFEU (0-500) H 02/04/17 06:26 Consult Discharge Plan - Plan Referrals: Moe Maya MD [Primary Care Provider] - 02/15/17 2:00 pm
[2017-02-14] MEDS: Albuterol 2.5 MG/3 ML NEBULIZER IH SCH ×6 (00:24→20:12)
[2017-02-14] MEDS: *HR* HYDROcodone/Acet 5/325 mg TABLET PO PRN ×2 (01:30→06:16)
[2017-02-14] MEDS: predniSONE 20 MG TABLET PO SCH (08:46)
[2017-02-14] MEDS: Folic Acid 1 MG TABLET PO SCH (08:47)
[2017-02-14] MEDS: PHENobarbital 32.4 MG TABLET PO SCH ×2 (08:47→13:53)
[2017-02-14] MEDS: Metoprolol XL (24 HR) Succ 25 MG TAB.ER.24H PO SCH (08:47)
--- NOTE | 2017-02-14 13:17 | General Surgery Progress Note ---
Date of Encounter: 02/14/17 Time of Encounter: 13:12 Subjective Patient reports: feels better, tolerating liquids well Narrative: Postoperative day 4: patient denies any abdominal or incisional pain, no nausea or vomiting. afebrile,pulse 66, respirations 17, blood pressure 103/64 lungs: Clear, no abdominal pain with deep inspiration abdomen:Soft, nontender,active bowel sounds. Incision clean and dry. Impression - POD #4 open splenectomy for autoimmune hemolytic anemia acceptable postoperative status Recommendations: Regular diet Discharge home when medically stable follow-up with me as outpatient, 02/18/17 Objective Vital Signs - Last 8 Hours Temp Pulse Resp BP Pulse Ox 02/14/17 11:28 16 95 02/14/17 10:50 97.9 F 66 17 103/64 96 02/14/17 08:03 17 96 02/14/17 07:04 98.1 F 71 17 114/66 96 Intake and Output 02/13/17 02/14/17 02/14/17 23:59 07:59 15:59 Intake Total 240 / 240 Output Total 400 / 400 350 / 350 Balance -400 / -400 -350 / -350 240 / 240 Intake: Oral 240 / 240 Output: Urine 400 / 400 350 / 350 Other: Meal Breakfast Percent of Meal Consumed 95% Weight 80.8 kg Patient Weight 02/14/17 23:59 Weight 80.8 kg - Labs 02/13/17 03:45 02/13/17 03:45 - VTE Documentation of Mechanical Device: Intermittent pneumatic compression device Consult Discharge Plan - Plan Referrals: Moe Maya MD [Primary Care Provider] - 02/15/17 2:00 pm
[2017-02-14 15:05] VITALS: BP 125/69
--- NOTE | 2017-02-14 16:25 | Discharge Summary ---
Date of Encounter: 02/14/17 Time of Encounter: 16:15 - Discharge Diagnosis (1) Acute renal injury Priority: Primary Status: Resolved (2) Autoimmune hemolytic anemia Priority: Secondary Status: Chronic (3) UTI (urinary tract infection) Priority: Primary Status: Ruled-out Qualifiers: Urinary tract infection type: site unspecified Hematuria presence: without hematuria Qualified Code(s): N39.0 - Urinary tract infection, site not specified (4) Hypothyroidism Priority: Secondary Status: Chronic Qualifiers: Hypothyroidism type: unspecified Qualified Code(s): E03.9 - Hypothyroidism , unspecified (5) CAD (coronary artery disease) Priority: Secondary Status: Chronic Qualifiers: Coronary Disease-Associated Artery/Lesion type: [place] artery [place] vs. transplanted heart: [place] heart Associated angina: without angina Qualified Code(s): I25.10 - Atherosclerotic heart disease of [place] coronary artery without angina pectoris (6) Seizure disorder Priority: Secondary Status: Chronic (7) S/P splenectomy during current hospitalization Priority: Primary Status: Acute - Discharge Medications Prescriptions: HYDROcodone/Acet 5/325 mg [[place] 5-325 mg] 1 tab PO Q6H PRN #20 tablet PRN Reason: pain not relieved by Tylenol PredniSONE 60 mg PO DAILY 6 Days Home Medications: PHENobarbital [Phenobarbital] 32.4 mg PO QID 02/06/16 [History] Aspirin 81 mg PO DAILY #30 tab.chew 08/16/16 [Rx] Ergocalciferol (VITAMIN D2) [Vitamin D2 (50,000 UNIT)] 50,000 unit PO FR [History] Metoprolol XL (24 HR) Succ [Toprol Xl] 25 mg PO DAILY 08/22/16 [History] Prochlorperazine Maleate [Compazine] 10 mg PO Q8HR PRN #0 tablet 08/28/16 [Rx] Cyanocobalamin (Vitamin B-12) [Vitamin B12] 1,000 mcg PO DAILY #30 tablet [Rx] Famotidine 40 mg PO DAILY 02/03/17 [History] Folic Acid 1 mg PO DAILY 02/03/17 [History] Levothyroxine [Synthroid] 50 mcg PO DAILY #30 tablet 02/03/17 [Rx] Lisinopril [Zestril] 5 mg PO DAILY 02/03/17 [History] Nitroglycerin [Nitrostat] 0.4 mg SL Q5M PRN 02/03/17 [History] Pravastatin Sodium [Pravachol] 40 mg PO HS 02/03/17 [History] Sulfamethoxazole/Trimeth DS [Bactrim Ds] 1 each PO MOFR 02/03/17 [History] Temazepam [Restoril] 7.5 mg PO HS PRN 02/03/17 [History] Valacyclovir [Valtrex] 500 mg PO DAILY 02/03/17 [History] HYDROcodone/Acet 5/325 mg [[place] 5-325 mg] 1 tab PO Q6H PRN #20 tablet 02/14/17 [Rx] PredniSONE 60 mg PO DAILY 6 Days 02/14/17 [Rx] Allergies/Adverse Reactions: Allergies phenytoin [From Dilantin] Adverse Reaction (Verified 08/21/16 18:47) Drowsy Date of admission: 02/04/17 06:57 Primary care physician: Moe Maya MD Consults: 02/05/17 11:41 Consult to Surgery [CONS] Routine Consulting Provider: [facility] Reason for Consult: evaluate candidate for interval splenectomy for autoimmune hemolytic anemia. Call Completed: No Discharging clinician: Chelo Pickering Anticipated date of discharge: 02/14/17 - Patient Status Disposition: Home, Self-Care Condition: Good Functional capacity at discharge: independent ambulation Overall status at discharge: patient is progressing back to baseline - Discharge Instructions Instructions: Hydrocodone/Acetaminophen (By mouth), Open Splenectomy (DC) Follow Up With: Moe Maya MD [Primary Care Provider] - 02/15/17 2:00 pm Kasi Brunson MD [Non-Partnered Physician] - (Please call the office to schedule a follow up appointment with Dr Brunson. He has requested that you follow up on February 18, 2017.) Additional Instructions: Please call for a follow up appointment with on 02/18/17 Appointment with [facility] 02/21/2017 3:50 - Diet and Activity Activity: increase activity as tolerated (do not lift weights above 20lbs, no strenuous activity, no tub baths) Diet: low fat, low cholesterol, low salt diet Hospital course: Mr. Salcedo is a 66 year old male with h/o- autoimmune hemolytic anemia was admitted with symptomatic anemia. He also had ISABELLA and possible UTI. He was started on IV hydration and IV antibiotics and his renal function improved back to baseline. Urine culture showed no significant growth and antibiotics were discontinued. Hematology was consulted for anemia and recommend IV steroids and since patient showed poor response to this in the past, recommended splenectomy. Surgery was consulted and patient underwent splenectomy and patient had an uneventful postop recovery. He remains hemodynamically stable, tolerates solid diet and passing flatus today and is stable for discharge with outpatient surgery f/up. He is being sent home on tapering steroids and pain meds PRN and encouraged to use stool softeners for resistant constipation. - Time Spent with Patient Total time spent providing and/or coordinating discharge services: Greater than 30 minutes (45 min) - Constitutional Vitals: Temp Pulse Resp BP Pulse Ox 97.3 F L 82 17 125/69 96 02/14/17 15:05 02/14/17 15:05 02/14/17 15:05 02/14/17 15:05 02/14/17 15:05 General appearance: Present: A&O X 3, answers questions appropriately - Cardiovascular Cardiovascular exam: Present: RRR, +S1, +S2. Absent: diastolic murmur, gallop, rubs, systolic murmur - GI/Abdominal GI/Abdominal exam: Present: normal bowel sounds, soft (nontender, left upper abdominal surgical wound healing well, valdo intact), no peritoneal signs. Absent: distended, tenderness - VTE Documentation of Mechanical Device: Intermittent pneumatic compression device
== END 2017-02-14 17:53 | disposition home or self-care (01) | DRG 800 ==
LOC: EMEROO 20:57 → 3BNU 20:57 → SUATTDRO 02-04 06:57
PROVIDERS: ADMIT Hospitalist; ATTEND Internal Medicine

== ENCOUNTER 2020-03-25 19:42 | Inpatient (IN) ==
[2020-03-25 20:18] LABS: Basophils # 0.1 K/mcL (0.0-0.2); Basophils % 0.7 %; Eosinophils # 0.4 K/mcL (0.0-0.6); Eosinophils % 4.1 %; Hematocrit 35.2 % (37.5-50.1); Hemoglobin 12.4 g/dL (12.9-16.9); Immature Granulocytes % 0.4 % (0-4); Lymphocytes # 2.7 K/mcL (0.6-4.6); Mean Corpuscular HGB Conc 35.2 g/dL (31.6-35.5); Mean Corpuscular Hemoglobin 32.1 pg (28.0-33.3); Mean Corpuscular Volume 91.2 fL (83.0-100.0); Mean Platelet Volume 9.2 fL (9.4-12.4); Monocytes # 1.7 K/mcL (0.0-1.3); Monocytes % 17.5 %; Neutrophils # 4.7 K/mcL (1.6-8.9); Platelet Count 533 K/mcL (140-400); Red Blood Count 3.86 M/mcL (4.19-5.50); Red Cell Distribution Width 16.5 % (11.5-14.5); Segmented Neutrophils % 49.3 %; White Blood Count 9.5 K/mcL (4.3-11.1)
[2020-03-25 20:23] LABS: INR 1.2
[2020-03-25 20:25] LABS: Activated Partial Thrombo Time 35.4 Seconds (26.0-36.0)
[2020-03-25 20:41] LABS: Alanine Aminotransferase 9 Units/L (7-52); Albumin 3.1 g/dL (3.5-5.7); Albumin/Globulin Ratio 0.8 (1.1-2.2); Alkaline Phosphatase 91 Units/L (34-104); Aspartate Amino Transferase 18 Units/L (13-39); BUN/Creatinine Ratio 12 (6-26); Bilirubin,Total 0.8 mg/dL (0.3-1.0); Blood Urea Nitrogen 26 mg/dL (8-23); Calcium 8.3 mg/dL (8.6-10.3); Carbon Dioxide 25 mEq/L (23-29); Chloride 100 mEq/L (98-107); Globulin 3.9 g/dL (2.4-3.5); Glucose 126 mg/dL (70-105); Osmolality,Calculated 282 (280-300); Sodium 133 mEq/L (136-145); Troponin I < 0.03 ng/mL (< 0.04); eGFR For African Americans 37 (> 60); eGFR For Non-African Americans 31 (> 60)
[2020-03-25] MEDS ORDERED: Furosemide 40 MG in 0.9 % Sodium Chloride 50 ML IVPB ONE (21:55)
[2020-03-25] MEDS ORDERED: Furosemide 40 MG/4 ML VIAL IVP ONE (22:15)
[2020-03-26] MEDS ORDERED: Naloxone 0.4 MG/ML INJ IVP PRN (00:52)
[2020-03-26 02:42] LABS: Basophils # 0.1 K/mcL (0.0-0.2); Basophils % 0.7 %; Eosinophils # 0.4 K/mcL (0.0-0.6); Eosinophils % 4.2 %; Hematocrit 33.6 % (37.5-50.1); Hemoglobin 11.8 g/dL (12.9-16.9); Immature Granulocytes % 0.5 % (0-4); Lymphocytes # 2.7 K/mcL (0.6-4.6); Lymphocytes % 31.2 %; Mean Corpuscular HGB Conc 35.1 g/dL (31.6-35.5); Mean Corpuscular Hemoglobin 32.5 pg (28.0-33.3); Mean Corpuscular Volume 92.6 fL (83.0-100.0); Mean Platelet Volume 10.4 fL (9.4-12.4); Monocytes # 1.5 K/mcL (0.0-1.3); Monocytes % 17.4 %; Platelet Count 479 K/mcL (140-400); Red Blood Count 3.63 M/mcL (4.19-5.50); Red Cell Distribution Width 17.5 % (11.5-14.5); White Blood Count 8.7 K/mcL (4.3-11.1)
[2020-03-26 03:03] LABS: % Iron Saturation 13 % (20-55); Alanine Aminotransferase 9 Units/L (7-52); Albumin 3.1 g/dL (3.5-5.7); Albumin/Globulin Ratio 0.8 (1.1-2.2); Alkaline Phosphatase 91 Units/L (34-104); Aspartate Amino Transferase 20 Units/L (13-39); BUN/Creatinine Ratio 12 (6-26); Bilirubin,Total 0.8 mg/dL (0.3-1.0); Blood Urea Nitrogen 26 mg/dL (8-23); Calcium 8.4 mg/dL (8.6-10.3); Carbon Dioxide 25 mEq/L (23-29); Chloride 99 mEq/L (98-107); Chol/HDL Ratio 3.4 (0-4.9); Cholesterol 124 mg/dL (< 200); Globulin 3.7 g/dL (2.4-3.5); Glucose 87 mg/dL (70-105); HDL Cholesterol 37 mg/dL (40-59); Iron 25 mcg/dL (65-175); LDL Cholesterol,Calculated 67 mg/dL (0-99); Magnesium 1.9 mg/dL (1.6-2.6); Osmolality,Calculated 282 (280-300); Phosphorous 3.2 mg/dL (2.7-4.5); Potassium 3.8 mEq/L (3.5-5.1); Sodium 134 mEq/L (136-145); Total Protein 6.8 g/dL (6.4-8.9); Transferrin 138 mg/dL (203-362); Triglycerides 98 mg/dL (< 150); Troponin I < 0.03 ng/mL (< 0.04); eGFR For African Americans 38 (> 60); eGFR For Non-African Americans 32 (> 60)
[2020-03-26 03:14] LABS: Hepatitis B Surface Antigen Nonreactive (Nonreactive)
[2020-03-26 03:15] LABS: Thyroid Stimulating Hormone 6.126 mcIU/mL (0.340-5.600)
[2020-03-26 03:21] LABS: Ferritin 1015 ng/mL (20-250)
[2020-03-26 03:30] LABS: Bilirubin,Urine Negative (Negative); Blood,Urine Negative (Negative); Clarity,Urine Clear (Clear); Color,Urine Yellow (Yellow); Glucose,Urine (UA) Normal (Normal); Ketones,Urine Negative (Negative); Leukocyte Esterase,Urine Negative (Negative); Nitrite,Urine Negative (Negative); Protein,Urine Negative (Neg-Trace); Urobilinogen,Urine Normal (Normal)
[2020-03-26 03:43] LABS: Hepatitis C Virus Antibody Nonreactive (Nonreactive)
[2020-03-26 03:44] LABS: Hepatitis A Antibody IgM Nonreactive (Nonreactive); Hepatitis B Core IgM Nonreactive (Nonreactive)
[2020-03-26 05:35] LABS: Acetaminophen < 10 mcg/mL (10-20); Ethanol < 10 mg/dL (Less than 10); Salicylate < 2.5 mg/dL (15.0-30.0)
[2020-03-26 08:40] LABS: Estimated Average Glucose 68 mg/dl
[2020-03-26 10:21] LABS: Creatine Kinase 17 Units/L (30-223); Uric Acid 8.6 mg/dL (2.3-7.6)
[2020-03-26 10:47] LABS: Sodium, Urine 100.2 mEq/L
[2020-03-26 14:48] LABS: Appearance of Body Fluid Slightly Hazy (Clear); Source of Body Fluid right pleural effusi; Volume of Body Fluid 920 mL
[2020-03-26 15:51] LABS: Total Protein,Pleural Fluid 4.7 g/dL
[2020-03-27 01:33] LABS: Hematocrit 36.2 % (37.5-50.1); Hemoglobin 12.7 g/dL (12.9-16.9); Mean Corpuscular HGB Conc 35.1 g/dL (31.6-35.5); Mean Corpuscular Hemoglobin 33.4 pg (28.0-33.3); Mean Corpuscular Volume 95.3 fL (83.0-100.0); Mean Platelet Volume 9.3 fL (9.4-12.4); Platelet Count 491 K/mcL (140-400); Red Cell Distribution Width 16.8 % (11.5-14.5)
[2020-03-27 01:53] LABS: Calcium 8.2 mg/dL (8.6-10.3); Potassium 3.9 mEq/L (3.5-5.1)
[2020-03-27] MEDS: *HR* Heparin 5,000 UNIT/ML VIAL SQ SCH ×2 (05:30→17:57)
[2020-03-27] MEDS: Aspirin 81 MG TAB.CHEW PO SCH (08:59)
[2020-03-27] MEDS: Folic Acid 1 MG TABLET PO SCH (08:59)
[2020-03-27] MEDS: Metoprolol XL (24 HR) Succ 25 MG TAB.ER.24H PO SCH (08:59)
[2020-03-27] MEDS: Cyanocobalamin (B-12) 1,000 MCG TABLET PO SCH (08:59)
[2020-03-28 02:44] LABS: Hematocrit 36.9 % (37.5-50.1); Hemoglobin 12.6 g/dL (12.9-16.9); Mean Corpuscular HGB Conc 34.1 g/dL (31.6-35.5); Mean Corpuscular Hemoglobin 32.1 pg (28.0-33.3); Mean Corpuscular Volume 94.1 fL (83.0-100.0); Mean Platelet Volume 9.8 fL (9.4-12.4); Platelet Count 500 K/mcL (140-400); Red Blood Count 3.92 M/mcL (4.19-5.50); Red Cell Distribution Width 16.6 % (11.5-14.5); White Blood Count 9.3 K/mcL (4.3-11.1)
[2020-03-28 03:07] LABS: Calcium 8.5 mg/dL (8.6-10.3); Potassium 4.1 mEq/L (3.5-5.1)
[2020-03-28] MEDS: *HR* Heparin 5,000 UNIT/ML VIAL SQ SCH (05:07)
[2020-03-28] MEDS ORDERED: Cholecalciferol (D-3) 1,000 UNIT (25MCG) TABLET PO SCH (09:30)
[2020-03-28] MEDS: Folic Acid 1 MG TABLET PO SCH (10:33)
[2020-03-28] MEDS: Aspirin 81 MG TAB.CHEW PO SCH (10:33)
[2020-03-28] MEDS: Metoprolol XL (24 HR) Succ 25 MG TAB.ER.24H PO SCH (10:33)
[2020-03-28] MEDS: Cyanocobalamin (B-12) 1,000 MCG TABLET PO SCH (10:33)
[2020-03-28 10:55] LABS: ANA IgG by ELISA NONE DETECTED (None Detected)
[2020-03-28 11:12] VITALS: BP 127/65
[2020-03-28] MEDS ORDERED: Torsemide 20 MG TABLET PO SCH (12:00)
[2020-03-29 05:52] LABS: Fluid Source for Albumin PLEURAL FLUID
[2020-03-30 10:01] LABS: Cancer Antigen-GI (CA 19-9) 9 U/mL (0-37)
[2020-03-30 10:07] LABS: AFP Tumor Marker Non-Pregnant 3 ng/mL (0-9)
== END 2020-03-28 14:09 | disposition home or self-care (01) | DRG 264 ==
LOC: 3BNU 19:42 → EMEROOARM 19:42 → 3BNU 22:45
PROVIDERS: ADMIT Family Medicine; ATTEND Family Medicine
PROC: IRLYMPH (2020-03-26 11:30)

== ENCOUNTER 2020-03-30 06:54 | Inpatient (IN) ==
[2020-03-30] MEDS ORDERED: Ondansetron 4 MG/2 ML VIAL IVP PRN (09:32)
[2020-03-30] MEDS ORDERED: Acetaminophen 325 MG TABLET PO PRN (09:32)
[2020-03-30] MEDS ORDERED: Naloxone 0.4 MG/ML INJ IVP PRN (09:32)
[2020-03-30] MEDS ORDERED: Ipratropium/Albuterol Neb 3 ML IH PRN (09:35)
[2020-03-30] MEDS ORDERED: Nitroglycerin 0.4 MG TAB.SUBL SL PRN (09:39)
[2020-03-30] MEDS ORDERED: Ranolazine 500 MG TAB.ER.12H PO SCH (09:45)
[2020-03-30] MEDS ORDERED: *HR* Heparin 5,000 UNIT/ML VIAL IVP PRN ×2 (09:59)
[2020-03-30] MEDS ORDERED: *HR* HYDROcodone/Acet 5/325 mg TABLET PO PRN (10:01)
[2020-03-30 10:19] LABS: Hematocrit 35.9 % (37.5-50.1); Hemoglobin 12.8 g/dL (12.9-16.9); Mean Corpuscular HGB Conc 35.7 g/dL (31.6-35.5); Mean Corpuscular Hemoglobin 33.5 pg (28.0-33.3); Mean Platelet Volume 9.3 fL (9.4-12.4); Platelet Count 510 K/mcL (140-400); Red Blood Count 3.82 M/mcL (4.19-5.50); Red Cell Distribution Width 17.2 % (11.5-14.5)
[2020-03-30 10:23] LABS: INR 1.3
[2020-03-30] MEDS: Furosemide 20 MG/2 ML VIAL IVP SCH ×2 (10:38→22:32)
[2020-03-30] MEDS: Isosorbide MONOnitrate (24 HR) 30 MG TAB.ER.24H PO SCH (10:43)
[2020-03-30] MEDS: Heparin 25,000 UNIT/250 ML D5W 25,000 UNIT/250 ML IV.SOLN IVC SCH (12:30)
[2020-03-30] MEDS: Doxycycline 100 MG CAPSULE PO SCH (22:32)
[2020-03-30] MEDS: Ranolazine 500 MG TAB.ER.12H PO SCH (22:33)
[2020-03-31 01:24] LABS: Basophils # 0.1 K/mcL (0.0-0.2); Basophils % 0.7 %; Eosinophils # 0.4 K/mcL (0.0-0.6); Eosinophils % 4.2 %; Hemoglobin 11.6 g/dL (12.9-16.9); Immature Granulocytes % 0.6 % (0-4); Lymphocytes # 2.3 K/mcL (0.6-4.6); Lymphocytes % 25.4 %; Mean Corpuscular HGB Conc 34.1 g/dL (31.6-35.5); Mean Corpuscular Hemoglobin 31.9 pg (28.0-33.3); Mean Corpuscular Volume 93.4 fL (83.0-100.0); Mean Platelet Volume 9.6 fL (9.4-12.4); Monocytes # 1.6 K/mcL (0.0-1.3); Monocytes % 17.4 %; Neutrophils # 4.7 K/mcL (1.6-8.9); Platelet Count 500 K/mcL (140-400); Red Blood Count 3.64 M/mcL (4.19-5.50); Red Cell Distribution Width 15.9 % (11.5-14.5); Segmented Neutrophils % 51.7 %
[2020-03-31 01:33] LABS: INR 1.2; Prothrombin Time 13.8 Seconds (9.4-12.1)
[2020-03-31 01:36] LABS: Activated Partial Thrombo Time 82.5 Seconds (26.0-36.0)
[2020-03-31 01:45] LABS: Magnesium 1.7 mg/dL (1.6-2.6); Phosphorous 3.5 mg/dL (2.7-4.5)
[2020-03-31] MEDS: Heparin 25,000 UNIT/250 ML D5W 25,000 UNIT/250 ML IV.SOLN IVC SCH (07:00)
[2020-03-31] MEDS: Folic Acid 1 MG TABLET PO SCH (08:01)
[2020-03-31] MEDS: Metoprolol XL (24 HR) Succ 25 MG TAB.ER.24H PO SCH (08:01)
[2020-03-31] MEDS: Ranolazine 500 MG TAB.ER.12H PO SCH ×2 (08:01→21:12)
[2020-03-31] MEDS: Cyanocobalamin (B-12) 1,000 MCG TABLET PO SCH (08:01)
[2020-03-31] MEDS: Aspirin 81 MG TAB.CHEW PO SCH (08:01)
[2020-03-31] MEDS: Isosorbide MONOnitrate (24 HR) 30 MG TAB.ER.24H PO SCH (08:01)
[2020-03-31] MEDS: Doxycycline 100 MG CAPSULE PO SCH ×2 (08:01→21:12)
[2020-03-31] MEDS: Furosemide 20 MG/2 ML VIAL IVP SCH ×2 (08:02→21:13)
[2020-03-31 17:29] LABS: Total Protein,Pleural Fluid 4.3 g/dL
[2020-04-01] MEDS: Ranolazine 500 MG TAB.ER.12H PO SCH (08:32)
[2020-04-01] MEDS: Isosorbide MONOnitrate (24 HR) 30 MG TAB.ER.24H PO SCH (08:32)
[2020-04-01] MEDS: Cyanocobalamin (B-12) 1,000 MCG TABLET PO SCH (08:32)
[2020-04-01] MEDS: Folic Acid 1 MG TABLET PO SCH (08:32)
[2020-04-01] MEDS: Aspirin 81 MG TAB.CHEW PO SCH (08:32)
[2020-04-01] MEDS: Furosemide 20 MG/2 ML VIAL IVP SCH (08:32)
[2020-04-01] MEDS: Metoprolol XL (24 HR) Succ 25 MG TAB.ER.24H PO SCH (08:32)
[2020-04-01] MEDS: Doxycycline 100 MG CAPSULE PO SCH (08:33)
[2020-04-01 10:48] VITALS: BP 107/49
[2020-04-02 17:52] LABS: Fluid Source for Triglycerides PLEURAL FLUID
[2020-04-03 08:32] LABS: Triglycerides,Body Fluid 51 mg/dL
== END 2020-04-01 14:48 | disposition home health service (06) | DRG 186 ==
LOC: 2ANU → SUATTDRO 08:07
PROVIDERS: ADMIT Family Medicine; ATTEND Internal Medicine

== ENCOUNTER 2020-06-13 18:12 | Inpatient (IN) ==
[~2020-06-13 18:12] MED LIST: Aminoglycoside Consult 1 EACH MC ONE
[2020-06-13] MEDS ORDERED: 0.9 % Sodium Chloride 1,000 ML IVC ONE ×2 (18:18→20:42)
[2020-06-13] MEDS ORDERED: Isovue-370 500 ML BOTTLE IVP ONE ×2 (18:20→19:18)
[2020-06-13] MEDS ORDERED: Piperacillin/Tazobactam 3.375 GM in 0.9 % Sodium Chloride Mini Bag 100 ML IVPB ONE (18:54)
[2020-06-13] MEDS ORDERED: Azithromycin 500 MG in 0.9 % Sodium Chloride 250 ML IVPB ONE (18:54)
[2020-06-13 19:26] LABS: VBG HCO3 27 mEq/L (21-27); VBG PCO2 42 mmHg (41-51); VBG PH 7.42 pH Units (7.32-7.42); VBG PO2 104 mmHg (25-50)
[2020-06-13 19:27] LABS: Mean Corpuscular HGB Conc 31.9 g/dL (31.6-35.5); Nucleated Red Blood Cells 0.1 /100 WBC (0); Red Cell Distribution Width 17.2 % (11.5-14.5)
[2020-06-13 19:28] LABS: Hematocrit 29.5 % (37.5-50.1); Hemoglobin 9.4 g/dL (12.9-16.9); Mean Corpuscular Hemoglobin 30.7 pg (28.0-33.3); Mean Corpuscular Volume 96.4 fL (83.0-100.0); Platelet Count 349 K/mcL (140-400); Red Blood Count 3.06 M/mcL (4.19-5.50)
[2020-06-13 19:31] LABS: INR 1.2; Prothrombin Time 13.3 Seconds (9.4-12.1)
[2020-06-13 19:34] LABS: Activated Partial Thrombo Time 31.2 Seconds (26.0-36.0); White Blood Count 74.4 K/mcL (4.3-11.1)
[2020-06-13 19:43] LABS: Alanine Aminotransferase 29 Units/L (7-52); Albumin 2.6 g/dL (3.5-5.7); Albumin/Globulin Ratio 1.1 (1.1-2.2); Alkaline Phosphatase 122 Units/L (34-104); Aspartate Amino Transferase 28 Units/L (13-39); BUN/Creatinine Ratio 20 (6-26); Bilirubin,Direct 0.3 mg/dL (0.0-0.2); Bilirubin,Indirect 0.6 mg/dL (0.0-1.0); Bilirubin,Total 0.9 mg/dL (0.3-1.0); Blood Urea Nitrogen 26 mg/dL (8-23); Carbon Dioxide 26 mEq/L (23-29); Chloride 99 mEq/L (98-107); Globulin 2.4 g/dL (2.4-3.5); Glucose 108 mg/dL (70-105); Lipase 3 Units/L (11-82); Magnesium 1.7 mg/dL (1.6-2.6); Osmolality,Calculated 283 (280-300); Phosphorous 4.2 mg/dL (2.7-4.5); Potassium 3.8 mEq/L (3.5-5.1); Sodium 134 mEq/L (136-145); Troponin I 0.22 ng/mL (< 0.04); eGFR For African Americans > 60 (> 60); eGFR For Non-African Americans 54 (> 60)
[2020-06-13 19:45] LABS: Lymphocytes # 1.5 K/mcL (0.6-4.6); Neutrophils # 72.9 K/mcL (1.6-8.9)
[2020-06-13 20:45] LABS: Bilirubin,Urine Negative (Negative); Blood,Urine Negative (Negative); Clarity,Urine Clear (Clear); Color,Urine Light-Orange (Yellow); Glucose,Urine (UA) Normal (Normal); Ketones,Urine Negative (Negative); Leukocyte Esterase,Urine Negative (Negative); Nitrite,Urine Negative (Negative); Protein,Urine Trace mg/dL (Neg-Trace); Specific Gravity,Urine 1.018 (1.010-1.025); Urobilinogen,Urine Normal (Normal)
[2020-06-13] MEDS ORDERED: 0.9 % Sodium Chloride 1,000 ML IVC SCH ×2 (21:15→21:30)
[2020-06-13] MEDS ORDERED: Naloxone 0.4 MG/ML INJ IVP PRN (21:30)
[2020-06-13] MEDS ORDERED: Ondansetron 4 MG/2 ML VIAL IVP PRN (21:30)
[2020-06-13 23:04] LABS: Adenovirus Not Detected (Not Detect); Bordetella Pertussis Not Detected (Not Detect); Chlamydophila pneumoniae Not Detected (Not Detect); Coronavirus 229E Not Detected (Not Detect); Coronavirus HKU1 Not Detected (Not Detect); Coronavirus NL63 Not Detected (Not Detect); Coronavirus OC43 Not Detected (Not Detect); Human Metapneumovirus Not Detected (Not Detect); Human Rhinovirus/Enterovirus Not Detected (Not Detect); Influenza A Subtype 2009 H1 Not Detected (Not Detect); Influenza B Not Detected (Not Detect); Mycoplasma pneumoniae Not Detected (Not Detect); Parainfluenza Virus 1 Not Detected (Not Detect); Parainfluenza Virus 2 Not Detected (Not Detect); Parainfluenza Virus 3 Not Detected (Not Detect); Parainfluenza Virus 4 Not Detected (Not Detect); Respiratory Syncytial Virus Not Detected (Not Detect)
[2020-06-13 23:05] LABS: SARS-CoV-2 Not Detected (Not Detect)
[2020-06-14] MEDS ORDERED: predniSONE 20 MG TABLET PO ONE (01:16)
[2020-06-14 01:41] LABS: Mean Platelet Volume 9.9 fL (9.4-12.4); Nucleated Red Blood Cells 0.1 /100 WBC (0)
[2020-06-14 01:43] LABS: Hematocrit 25.6 % (37.5-50.1); Hemoglobin 8.3 g/dL (12.9-16.9); Mean Corpuscular HGB Conc 32.4 g/dL (31.6-35.5); Mean Corpuscular Hemoglobin 31.1 pg (28.0-33.3); Mean Corpuscular Volume 95.9 fL (83.0-100.0); Platelet Count 270 K/mcL (140-400); Red Blood Count 2.67 M/mcL (4.19-5.50)
[2020-06-14 01:45] LABS: White Blood Count 64.7 K/mcL (4.3-11.1)
[2020-06-14 01:57] LABS: BUN/Creatinine Ratio 20 (6-26); Blood Urea Nitrogen 25 mg/dL (8-23); Carbon Dioxide 27 mEq/L (23-29); Chloride 105 mEq/L (98-107); Potassium 3.6 mEq/L (3.5-5.1); Sodium 136 mEq/L (136-145); eGFR For African Americans > 60 (> 60)
[2020-06-14 01:58] LABS: Alanine Aminotransferase 22 Units/L (7-52); Albumin 2.2 g/dL (3.5-5.7); Albumin/Globulin Ratio 1.1 (1.1-2.2); Alkaline Phosphatase 94 Units/L (34-104); Aspartate Amino Transferase 20 Units/L (13-39); Bilirubin,Total 1.1 mg/dL (0.3-1.0); Calcium 7.4 mg/dL (8.6-10.3); Glucose 99 mg/dL (70-105); Osmolality,Calculated 286 (280-300); Total Protein 4.2 g/dL (6.4-8.9); eGFR For Non-African Americans 59 (> 60)
[2020-06-14] MEDS: Piperacillin/Tazobactam 3.375 GM in 0.9 % Sodium Chloride Mini Bag 100 ML IVPB SCH ×4 (02:12→23:59)
[2020-06-14] MEDS: 0.9 % Sodium Chloride 1,000 ML IVC SCH ×3 (02:13→21:02)
[2020-06-14 02:35] LABS: Anisocytosis 2+ (Not Present); Lymphocytes # 1.3 K/mcL (0.6-4.6); Macrocytosis Present (Not Present); Neutrophils # 63.4 K/mcL (1.6-8.9)
[2020-06-14 02:36] LABS: Microcytosis Present (Not Present); Platelet Estimate Normal (Normal)
[2020-06-14] MEDS ORDERED: Perflutren Lipid Microsphere 1.3 ML in 0.9 % Sodium Chloride 8.7 ML IVP PRN (03:01)
[2020-06-14] MEDS ORDERED: Aspirin 325 MG TABLET PO ONE (06:29)
[2020-06-14 07:02] LABS: Acinetobacter baumannii by PCR Not Detected (Not Detect); Candida albicans by PCR Not Detected (Not Detect); Candida glabrata by PCR Not Detected (Not Detect); Candida krusei by PCR Not Detected (Not Detect); Candida parapsilosis by PCR Not Detected (Not Detect); Candida tropicalis by PCR Not Detected (Not Detect); Enterobacter cloacae Cmplx PCR Not Detected (Not Detect); Enterococcus by PCR Not Detected (Not Detect); Escherichia coli by PCR DETECTED (Not Detect); Klebsiella oxytoca by PCR Not Detected (Not Detect); Klebsiella pneumoniae by PCR Not Detected (Not Detect); Proteus by PCR Not Detected (Not Detect); Pseudomonas aeruginosa by PCR Not Detected (Not Detect); Serratia marcescens by PCR Not Detected (Not Detect); Staphylococcus aureus by PCR Not Detected (Not Detect); Staphylococcus by PCR Not Detected (Not Detect); Streptococcus agalactiae(B)PCR Not Detected (Not Detect); Streptococcus by PCR Not Detected (Not Detect); Streptococcus pneumoniae PCR Not Detected (Not Detect); Streptococcus pyogenes (A) PCR Not Detected (Not Detect); blaKPC Carbapenem-Resist Gene Not Detected (Not Detect); mecA Methicillin-Resist Gene Not Detected (Not Detect); vanA/B Vancomycin-Resist Genes Not Detected (Not Detect)
[2020-06-14] MEDS: Folic Acid 1 MG TABLET PO SCH (08:55)
[2020-06-14] MEDS: Cyanocobalamin (B-12) 1,000 MCG TABLET PO SCH (08:55)
[2020-06-14] MEDS ORDERED: Aspirin 81 MG TAB.CHEW PO SCH (09:00)
[2020-06-14] MEDS: Ranolazine 500 MG TAB.ER.12H PO SCH ×2 (09:15→19:48)
[2020-06-14 11:37] LABS: RBC,Pleural Fluid 13000 RBC/mcL
[2020-06-14] MEDS: Aspirin Enteric Coated 81 MG Tablet PO SCH (11:53)
[2020-06-14 12:08] LABS: Amylase,Pleural Fluid 19 Units/L (No Ref Range); Glucose,Pleural Fluid 93 mg/dL (No Ref Range); Total Protein,Pleural Fluid < 3.0 g/dL
[2020-06-14 12:21] LABS: LDH,Pleural Fluid > 1200 Units/L (No Ref Range)
[2020-06-14 12:33] LABS: Appearance of Pleural Fl Cloudy (Clear)
[2020-06-14] MEDS ORDERED: Vancomycin 1,250 MG/262.5 ML IV.SOLN IVPB SCH (19:00)
[2020-06-14] MEDS ORDERED: Azithromycin 500 MG in 0.9 % Sodium Chloride 250 ML IVPB SCH (21:00)
[2020-06-15 04:34] LABS: Hemoglobin 7.2 g/dL (12.9-16.9); Red Cell Distribution Width 16.7 % (11.5-14.5)
[2020-06-15 04:35] LABS: Hematocrit 22.2 % (37.5-50.1); Mean Corpuscular HGB Conc 32.4 g/dL (31.6-35.5); Mean Corpuscular Hemoglobin 31.2 pg (28.0-33.3); Mean Corpuscular Volume 96.1 fL (83.0-100.0); Mean Platelet Volume 11.3 fL (9.4-12.4); Red Blood Count 2.31 M/mcL (4.19-5.50)
[2020-06-15 04:52] LABS: Alanine Aminotransferase 13 Units/L (7-52); Albumin/Globulin Ratio 0.9 (1.1-2.2); Alkaline Phosphatase 82 Units/L (34-104); Aspartate Amino Transferase 10 Units/L (13-39); BUN/Creatinine Ratio 26 (6-26); Bilirubin,Total 0.9 mg/dL (0.3-1.0); Blood Urea Nitrogen 24 mg/dL (8-23); Carbon Dioxide 25 mEq/L (23-29); Chloride 108 mEq/L (98-107); Globulin 2.2 g/dL (2.4-3.5); Glucose 108 mg/dL (70-105); Magnesium 1.7 mg/dL (1.6-2.6); Osmolality,Calculated 289 (280-300); Potassium 3.7 mEq/L (3.5-5.1); Sodium 137 mEq/L (136-145); Total Protein 4.2 g/dL (6.4-8.9); eGFR For African Americans > 60 (> 60); eGFR For Non-African Americans > 60 (> 60)
[2020-06-15 05:09] LABS: White Blood Count 56.7 K/mcL (4.3-11.1)
[2020-06-15 05:10] LABS: Platelet Count 134 K/mcL (140-400)
[2020-06-15 05:11] LABS: Anisocytosis 1+ (Not Present); Lymphocytes # 4.5 K/mcL (0.6-4.6); Neutrophils # 52.2 K/mcL (1.6-8.9)
[2020-06-15 05:12] LABS: Microcytosis Present (Not Present)
[2020-06-15 05:13] LABS: Platelet Estimate Slight Decrease (Normal)
[2020-06-15] MEDS ORDERED: Pantoprazole 40 MG VIAL IVP SCH (07:32)
[2020-06-15] MEDS: predniSONE 20 MG TABLET PO SCH (07:33)
[2020-06-15] MEDS: Folic Acid 1 MG TABLET PO SCH (07:33)
[2020-06-15] MEDS: Cyanocobalamin (B-12) 1,000 MCG TABLET PO SCH (07:33)
[2020-06-15] MEDS: Ranolazine 500 MG TAB.ER.12H PO SCH ×2 (07:33→19:32)
[2020-06-15] MEDS: Aspirin Enteric Coated 81 MG Tablet PO SCH (07:33)
[2020-06-15] MEDS: 0.9 % Sodium Chloride 1,000 ML IVC SCH (07:34)
[2020-06-15] MEDS: Piperacillin/Tazobactam 3.375 GM in 0.9 % Sodium Chloride Mini Bag 100 ML IVPB SCH ×2 (07:34→16:12)
[2020-06-15 14:35] LABS: Hematocrit 25.2 % (37.5-50.1); Hemoglobin 8.1 g/dL (12.9-16.9)
[2020-06-15] MEDS: Pantoprazole 40 MG VIAL IVP SCH (17:46)
[2020-06-16 04:36] LABS: Hematocrit 22.3 % (37.5-50.1); Hemoglobin 7.2 g/dL (12.9-16.9); Mean Corpuscular HGB Conc 32.3 g/dL (31.6-35.5)
[2020-06-16 04:38] LABS: Immature Platelets 8.4 % (1.1-6.1); Mean Corpuscular Hemoglobin 30.9 pg (28.0-33.3); Mean Corpuscular Volume 95.7 fL (83.0-100.0); Mean Platelet Volume 11.7 fL (9.4-12.4); Platelet Count 136 K/mcL (140-400); Red Blood Count 2.33 M/mcL (4.19-5.50); Red Cell Distribution Width 16.5 % (11.5-14.5)
[2020-06-16 04:48] LABS: White Blood Count 33.8 K/mcL (4.3-11.1)
[2020-06-16 04:56] LABS: BUN/Creatinine Ratio 26 (6-26); Blood Urea Nitrogen 28 mg/dL (8-23); Calcium 7.6 mg/dL (8.6-10.3); Carbon Dioxide 24 mEq/L (23-29); Chloride 108 mEq/L (98-107); Glucose 109 mg/dL (70-105); Magnesium 1.9 mg/dL (1.6-2.6); Osmolality,Calculated 292 (280-300); Potassium 3.7 mEq/L (3.5-5.1); Sodium 138 mEq/L (136-145); eGFR For African Americans > 60 (> 60); eGFR For Non-African Americans > 60 (> 60)
[2020-06-16 05:12] LABS: Anisocytosis 1+ (Not Present); Neutrophils # 31.8 K/mcL (1.6-8.9); Platelet Estimate Normal (Normal)
[2020-06-16] MEDS: Pantoprazole 40 MG VIAL IVP SCH (05:41)
[2020-06-16] MEDS: Piperacillin/Tazobactam 3.375 GM in 0.9 % Sodium Chloride Mini Bag 100 ML IVPB SCH ×2 (09:10)
[2020-06-16] MEDS: Aspirin Enteric Coated 81 MG Tablet PO SCH (09:10)
[2020-06-16] MEDS: Ranolazine 500 MG TAB.ER.12H PO SCH ×2 (09:10→20:21)
[2020-06-16] MEDS: Cyanocobalamin (B-12) 1,000 MCG TABLET PO SCH (09:10)
[2020-06-16] MEDS: Folic Acid 1 MG TABLET PO SCH (09:10)
[2020-06-16] MEDS: predniSONE 20 MG TABLET PO SCH (09:10)
[2020-06-16] MEDS: levoFLOXacin 750 MG/150 ML 750 MG/150 ML BAG IVPB SCH (17:49)
[2020-06-16] MEDS: metroNIDAZOLE 500 MG TABLET PO SCH ×2 (17:49→20:21)
[2020-06-16 22:46] LABS: Fluid Source for Cholesterol PLEURAL FLUID; Fluid Source for Triglycerides PLEURAL FLUID
[2020-06-17 03:35] LABS: Hematocrit 24.3 % (37.5-50.1); Hemoglobin 7.8 g/dL (12.9-16.9); Mean Corpuscular HGB Conc 32.1 g/dL (31.6-35.5); Mean Corpuscular Volume 93.5 fL (83.0-100.0); Mean Platelet Volume 11.8 fL (9.4-12.4); Platelet Count 152 K/mcL (140-400); Red Cell Distribution Width 16.5 % (11.5-14.5)
[2020-06-17 03:36] LABS: White Blood Count 16.3 K/mcL (4.3-11.1)
[2020-06-17 03:54] LABS: BUN/Creatinine Ratio 24 (6-26); Blood Urea Nitrogen 24 mg/dL (8-23); Calcium 8.2 mg/dL (8.6-10.3); Carbon Dioxide 23 mEq/L (23-29); Chloride 107 mEq/L (98-107); Glucose 106 mg/dL (70-105); Osmolality,Calculated 288 (280-300); Potassium 3.8 mEq/L (3.5-5.1); Sodium 137 mEq/L (136-145); eGFR For African Americans > 60 (> 60); eGFR For Non-African Americans > 60 (> 60)
[2020-06-17 04:08] LABS: Neutrophils # 15.3 K/mcL (1.6-8.9); Toxic Granulation Present (Not Present)
[2020-06-17 04:09] LABS: Anisocytosis 2+ (Not Present); Macrocytosis Present (Not Present); Microcytosis Present (Not Present); Platelet Estimate Normal (Normal)
[2020-06-17 08:35] LABS: Cholesterol,Body Fluid 93 mg/dL; Triglycerides,Body Fluid 2873 mg/dL
[2020-06-17] MEDS: Ranolazine 500 MG TAB.ER.12H PO SCH ×2 (09:24→19:33)
[2020-06-17] MEDS: predniSONE 20 MG TABLET PO SCH (09:24)
[2020-06-17] MEDS: Cyanocobalamin (B-12) 1,000 MCG TABLET PO SCH (09:24)
[2020-06-17] MEDS: levoFLOXacin 750 MG/150 ML 750 MG/150 ML BAG IVPB SCH (09:25)
[2020-06-17] MEDS: Aspirin Enteric Coated 81 MG Tablet PO SCH (09:25)
[2020-06-17] MEDS: metroNIDAZOLE 500 MG TABLET PO SCH ×3 (09:25→19:33)
[2020-06-17] MEDS: Folic Acid 1 MG TABLET PO SCH (09:25)
[2020-06-18 03:44] LABS: Mean Corpuscular HGB Conc 33.3 g/dL (31.6-35.5); Mean Corpuscular Hemoglobin 31.3 pg (28.0-33.3); Mean Corpuscular Volume 93.8 fL (83.0-100.0); Mean Platelet Volume 12.1 fL (9.4-12.4); Platelet Count 145 K/mcL (140-400); Red Blood Count 2.56 M/mcL (4.19-5.50); Red Cell Distribution Width 15.9 % (11.5-14.5); White Blood Count 14.1 K/mcL (4.3-11.1)
[2020-06-18 04:03] LABS: BUN/Creatinine Ratio 18 (6-26); Blood Urea Nitrogen 19 mg/dL (8-23); Calcium 7.9 mg/dL (8.6-10.3); Carbon Dioxide 27 mEq/L (23-29); Chloride 105 mEq/L (98-107); Glucose 102 mg/dL (70-105); Osmolality,Calculated 284 (280-300); Potassium 3.9 mEq/L (3.5-5.1); Sodium 136 mEq/L (136-145); eGFR For African Americans > 60 (> 60); eGFR For Non-African Americans > 60 (> 60)
[2020-06-18 04:12] LABS: Anisocytosis 2+ (Not Present); Macrocytosis Present (Not Present); Microcytosis Present (Not Present); Monocytes # 0.6 K/mcL (0.0-1.3); Neutrophils # 11.6 K/mcL (1.6-8.9); Platelet Estimate Normal (Normal); Toxic Granulation Present (Not Present)
[2020-06-18] MEDS: Folic Acid 1 MG TABLET PO SCH (08:25)
[2020-06-18] MEDS: Aspirin Enteric Coated 81 MG Tablet PO SCH (08:25)
[2020-06-18] MEDS: Ranolazine 500 MG TAB.ER.12H PO SCH (08:25)
[2020-06-18] MEDS: metroNIDAZOLE 500 MG TABLET PO SCH (08:26)
[2020-06-18] MEDS: Cyanocobalamin (B-12) 1,000 MCG TABLET PO SCH (08:26)
[2020-06-18] MEDS: levoFLOXacin 750 MG/150 ML 750 MG/150 ML BAG IVPB SCH (08:26)
[2020-06-18] MEDS: predniSONE 20 MG TABLET PO SCH (08:26)
[2020-06-18 11:13] VITALS: BP 125/79
[2020-06-19] MEDS ORDERED: levoFLOXacin 750 MG TABLET PO SCH (09:00)
== END 2020-06-18 14:21 | disposition home or self-care (01) | DRG 871 ==
LOC: 2ANU 18:12 → EMEROOARM 18:12 → SUATTDRO 21:07 → 2ANU 23:52 → SUATTDRO 06-14 11:33
PROVIDERS: ADMIT Student in an Organized Health Care Education/Training Program; ATTEND Internal Medicine

== ENCOUNTER 2020-10-13 16:54 | Inpatient (IN) ==
[2020-10-13 19:31] LABS: Bilirubin,Urine Negative (Negative); Blood,Urine Negative (Negative); Clarity,Urine Clear (Clear); Color,Urine Colorless (Yellow); Glucose,Urine (UA) Normal (Normal); Ketones,Urine Negative (Negative); Leukocyte Esterase,Urine Negative (Negative); Nitrite,Urine Negative (Negative); Protein,Urine Negative (Neg-Trace); Specific Gravity,Urine 1.008 (1.010-1.025); Urobilinogen,Urine Normal (Normal)
[2020-10-13 19:33] LABS: Basophils # 0.1 K/mcL (0.0-0.2); Basophils % 0.2 %; Eosinophils # 0.2 K/mcL (0.0-0.6); Eosinophils % 0.7 %; Hematocrit 36.5 % (37.5-50.1); Hemoglobin 11.7 g/dL (12.9-16.9); Immature Granulocytes % 0.5 % (0-4); Lymphocytes # 15.4 K/mcL (0.6-4.6); Mean Corpuscular HGB Conc 32.1 g/dL (31.6-35.5); Mean Corpuscular Hemoglobin 30.5 pg (28.0-33.3); Mean Corpuscular Volume 95.1 fL (83.0-100.0); Monocytes # 2.3 K/mcL (0.0-1.3); Monocytes % 7.3 %; Neutrophils # 13.9 K/mcL (1.6-8.9); Platelet Count 425 K/mcL (140-400); Red Blood Count 3.84 M/mcL (4.19-5.50); Segmented Neutrophils % 43.3 %
[2020-10-13 19:46] LABS: Albumin 3.3 g/dL (3.5-5.7); Albumin/Globulin Ratio 1.3 (1.1-2.2); Bilirubin,Total 0.5 mg/dL (0.3-1.0); Calcium 8.8 mg/dL (8.6-10.3); Globulin 2.5 g/dL (2.4-3.5); Potassium 3.5 mEq/L (3.5-5.1); Total Protein 5.8 g/dL (6.4-8.9)
[2020-10-13 19:57] LABS: Reactive Lymphocytes Present (Not Present)
[2020-10-13 19:58] LABS: Poikilocytosis 1+ (Not Present)
[2020-10-13] MEDS ORDERED: 0.9 % Sodium Chloride 1,000 ML IV ONE (20:59)
[2020-10-13] MEDS ORDERED: Vancomycin Oral Soln 125 MG/2.5 ML UDC PO STA (21:01)
[2020-10-13] MEDS ORDERED: Ondansetron 4 MG/2 ML VIAL IVP PRN (22:59)
[2020-10-13] MEDS ORDERED: Naloxone 0.4 MG/ML INJ IVP PRN (22:59)
[2020-10-13] MEDS ORDERED: Acetaminophen 325 MG TABLET PO PRN (22:59)
[2020-10-13] MEDS: 0.9 % Sodium Chloride 1,000 ML IVC SCH (23:37)
[2020-10-14 04:19] LABS: Mean Corpuscular HGB Conc 32.4 g/dL (31.6-35.5); Mean Platelet Volume 9.9 fL (9.4-12.4)
[2020-10-14 04:21] LABS: Hematocrit 33.6 % (37.5-50.1); Hemoglobin 10.9 g/dL (12.9-16.9); Mean Corpuscular Hemoglobin 31.3 pg (28.0-33.3); Mean Corpuscular Volume 96.6 fL (83.0-100.0); Platelet Count 408 K/mcL (140-400); Red Blood Count 3.48 M/mcL (4.19-5.50); Red Cell Distribution Width 16.1 % (11.5-14.5); White Blood Count 27.4 K/mcL (4.3-11.1)
[2020-10-14 04:43] LABS: Calcium 8.1 mg/dL (8.6-10.3); Magnesium 1.5 mg/dL (1.6-2.6); Phosphorous 3.6 mg/dL (2.7-4.5); Potassium 3.4 mEq/L (3.5-5.1)
[2020-10-14] MEDS: Vancomycin Oral Soln 125 MG/2.5 ML UDC PO SCH ×5 (05:15→19:51)
[2020-10-14] MEDS: *HR* Heparin 5,000 UNIT/ML VIAL SQ SCH ×2 (05:15→16:41)
[2020-10-14] MEDS ORDERED: Potassium Chloride Elixir 20 MEQ/15 ML UDC PO ONE (07:48)
[2020-10-14] MEDS: 0.9 % Sodium Chloride 1,000 ML IVC SCH ×2 (08:25→16:40)
[2020-10-14] MEDS: Aspirin 81 MG TAB.CHEW PO SCH (09:16)
[2020-10-15] MEDS: 0.9 % Sodium Chloride 1,000 ML IVC SCH (03:57)
[2020-10-15 04:19] LABS: Basophils # 0.1 K/mcL (0.0-0.2); Basophils % 0.3 %; Eosinophils # 0.3 K/mcL (0.0-0.6); Eosinophils % 1.5 %; Hematocrit 32.4 % (37.5-50.1); Hemoglobin 10.4 g/dL (12.9-16.9); Immature Granulocytes % 0.5 % (0-4); Lymphocytes # 11.1 K/mcL (0.6-4.6); Lymphocytes % 52.7 %; Mean Corpuscular HGB Conc 32.1 g/dL (31.6-35.5); Mean Corpuscular Volume 96.4 fL (83.0-100.0); Mean Platelet Volume 9.9 fL (9.4-12.4); Monocytes # 1.7 K/mcL (0.0-1.3); Monocytes % 8.1 %; Platelet Count 415 K/mcL (140-400); Red Blood Count 3.36 M/mcL (4.19-5.50); Red Cell Distribution Width 15.9 % (11.5-14.5); Segmented Neutrophils % 36.9 %
[2020-10-15 04:41] LABS: BUN/Creatinine Ratio 10 (6-26); Blood Urea Nitrogen 12 mg/dL (8-23); Carbon Dioxide 25 mEq/L (23-29); Chloride 109 mEq/L (98-107); Glucose 94 mg/dL (70-105); Magnesium 1.5 mg/dL (1.6-2.6); Osmolality,Calculated 290 (280-300); Potassium 3.3 mEq/L (3.5-5.1); Sodium 140 mEq/L (136-145); eGFR For African Americans > 60 (> 60); eGFR For Non-African Americans 59 (> 60)
[2020-10-15 04:53] LABS: Neutrophils # 7.8 K/mcL (1.6-8.9)
[2020-10-15 04:54] LABS: Platelet Estimate Increased (Normal)
[2020-10-15 04:55] LABS: Reactive Lymphocytes Present (Not Present)
[2020-10-15] MEDS: *HR* Heparin 5,000 UNIT/ML VIAL SQ SCH ×2 (06:07→16:55)
[2020-10-15] MEDS: Vancomycin Oral Soln 125 MG/2.5 ML UDC PO SCH ×4 (08:41→19:45)
[2020-10-15] MEDS: Aspirin 81 MG TAB.CHEW PO SCH (08:42)
[2020-10-16] MEDS: *HR* Heparin 5,000 UNIT/ML VIAL SQ SCH (04:58)
[2020-10-16 05:14] LABS: Hematocrit 32.5 % (37.5-50.1); Hemoglobin 10.6 g/dL (12.9-16.9); Mean Corpuscular HGB Conc 32.6 g/dL (31.6-35.5); Mean Corpuscular Hemoglobin 31.2 pg (28.0-33.3); Mean Corpuscular Volume 95.6 fL (83.0-100.0); Mean Platelet Volume 9.8 fL (9.4-12.4); Platelet Count 412 K/mcL (140-400); Red Cell Distribution Width 15.7 % (11.5-14.5); White Blood Count 18.2 K/mcL (4.3-11.1)
[2020-10-16 05:30] LABS: BUN/Creatinine Ratio 6 (6-26); Blood Urea Nitrogen 7 mg/dL (8-23); Calcium 7.9 mg/dL (8.6-10.3); Carbon Dioxide 25 mEq/L (23-29); Chloride 111 mEq/L (98-107); Glucose 84 mg/dL (70-105); Magnesium 1.7 mg/dL (1.6-2.6); Osmolality,Calculated 285 (280-300); Potassium 3.5 mEq/L (3.5-5.1); Sodium 139 mEq/L (136-145); eGFR For African Americans > 60 (> 60); eGFR For Non-African Americans > 60 (> 60)
[2020-10-16 06:42] VITALS: BP 110/60
[2020-10-16] MEDS ORDERED: Magnesium Sulfate 1 GM/102 ML PIGGYBACK IVPB ONE (07:32)
[2020-10-16] MEDS ORDERED: Metoprolol XL (24 HR) Succ 25 MG TAB.ER.24H PO SCH (09:00)
[2020-10-16] MEDS: Aspirin 81 MG TAB.CHEW PO SCH (09:03)
[2020-10-16] MEDS: Vancomycin Oral Soln 125 MG/2.5 ML UDC PO SCH (09:03)
== END 2020-10-16 13:25 | disposition home or self-care (01) | DRG 371 ==
LOC: EMEROOARM 16:54 → 3NENU 16:54 → SUATTDRO 21:25 → 3NENU 22:04 → SUATTDRO 10-14 11:42
PROVIDERS: ADMIT Family Medicine; ATTEND Internal Medicine

== ENCOUNTER 2022-04-26 09:35 | Inpatient (IN) ==
[2022-04-26 10:47] LABS: Basophils % 0.1 %; Hematocrit 42.5 % (37.5-50.1); Hemoglobin 14.6 g/dL (12.9-16.9); Immature Granulocytes % 0.4 % (0-4); Lymphocytes # 2.5 K/mcL (0.6-4.6); Mean Corpuscular HGB Conc 34.4 g/dL (31.6-35.5); Mean Corpuscular Hemoglobin 31.6 pg (28.0-33.3); Mean Platelet Volume 10.5 fL (9.4-12.4); Monocytes # 0.7 K/mcL (0.0-1.3); Monocytes % 6.6 %; Neutrophils # 6.9 K/mcL (1.6-8.9); Platelet Count 190 K/mcL (140-400); Red Blood Count 4.62 M/mcL (4.19-5.50); Red Cell Distribution Width 14.5 % (11.5-14.5); Segmented Neutrophils % 67.9 %; White Blood Count 10.1 K/mcL (4.3-11.1)
[2022-04-26 10:59] LABS: INR 1.3
[2022-04-26 11:02] LABS: Activated Partial Thrombo Time 39.7 Seconds (26.0-36.0)
[2022-04-26 11:12] LABS: Albumin 3.6 g/dL (3.5-5.7); Bilirubin,Direct 0.2 mg/dL (0.0-0.2); Bilirubin,Indirect 0.4 mg/dL (0.0-1.0); Bilirubin,Total 0.6 mg/dL (0.3-1.0); Calcium 8.5 mg/dL (8.6-10.3); Globulin 3.5 g/dL (2.4-3.5); Potassium 4.2 mEq/L (3.5-5.1); Total Protein 7.1 g/dL (6.4-8.9); Troponin I 0.04 ng/mL (< 0.04)
[2022-04-26] MEDS ORDERED: 0.9 % Sodium Chloride 500 ML IVC ONE ×2 (11:46→14:22)
[2022-04-26 12:00] LABS: Influenza A PCR Negative (Negative); Influenza B PCR Negative (Negative); Resp. Syncytial Virus PCR Negative (Negative)
[2022-04-26 12:20] LABS: SARS-CoV-2 by PCR (In House) Negative (Negative)
[2022-04-26] MEDS ORDERED: Isovue-370 500 ML BOTTLE IVP ONE (12:47)
[2022-04-26] MEDS ORDERED: Cefepime HCl 1,000 MG in 0.9 % Sodium Chloride Mini Bag 100 ML IVPB STA (14:25)
[2022-04-26] MEDS ORDERED: Acetaminophen 325 MG TABLET PO PRN (15:46)
[2022-04-26] MEDS ORDERED: *HR* OxyCODONE Immed Rel 5 MG TABLET PO PRN (15:46)
[2022-04-26] MEDS ORDERED: Naloxone 0.4 MG/ML INJ IVP PRN (15:46)
[2022-04-26] MEDS ORDERED: *HR* HYDROcodone/Acet 5/325 mg TABLET PO PRN (15:46)
[2022-04-26] MEDS ORDERED: Melatonin 3 MG TABLET PO PRN (15:46)
[2022-04-26] MEDS ORDERED: Azithromycin 500 MG in 0.9 % Sodium Chloride 250 ML IVPB SCH (16:00)
[2022-04-26] MEDS ORDERED: Nitroglycerin 0.4 MG TAB.SUBL SL SCH (16:30)
[2022-04-26] MEDS ORDERED: Nitroglycerin 0.4 MG TAB.SUBL SL PRN (17:04)
[2022-04-26] MEDS: cefTRIAXone 1,000 MG in 0.9 % Sodium Chloride 10 ML IVP SCH (18:21)
[2022-04-27 01:40] LABS: Basophils % 0.2 %; Hematocrit 40.2 % (37.5-50.1); Hemoglobin 13.5 g/dL (12.9-16.9); Immature Granulocytes % 0.3 % (0-4); Lymphocytes # 1.8 K/mcL (0.6-4.6); Lymphocytes % 19.9 %; Mean Corpuscular HGB Conc 33.6 g/dL (31.6-35.5); Mean Corpuscular Hemoglobin 31.1 pg (28.0-33.3); Mean Corpuscular Volume 92.6 fL (83.0-100.0); Mean Platelet Volume 11.1 fL (9.4-12.4); Monocytes # 0.5 K/mcL (0.0-1.3); Monocytes % 5.4 %; Neutrophils # 6.9 K/mcL (1.6-8.9); Platelet Count 162 K/mcL (140-400); Red Blood Count 4.34 M/mcL (4.19-5.50); Red Cell Distribution Width 14.5 % (11.5-14.5); Segmented Neutrophils % 74.2 %; White Blood Count 9.3 K/mcL (4.3-11.1)
[2022-04-27 02:01] LABS: Albumin 3.3 g/dL (3.5-5.7); Albumin/Globulin Ratio 1.1 (1.1-2.2); Bilirubin,Total 0.5 mg/dL (0.3-1.0); Calcium 8.3 mg/dL (8.6-10.3); Globulin 3.1 g/dL (2.4-3.5); Magnesium 1.6 mg/dL (1.6-2.6); Potassium 4.5 mEq/L (3.5-5.1); Total Protein 6.4 g/dL (6.4-8.9)
[2022-04-27] MEDS: lisinopriL 5 MG TABLET PO SCH (10:00)
[2022-04-27] MEDS: Torsemide 20 MG TABLET PO SCH (10:00)
[2022-04-27] MEDS: Aspirin Enteric Coated 81 MG Tablet PO SCH (10:05)
[2022-04-27] MEDS: Metoprolol XL (24 HR) Succ 25 MG TAB.ER.24H PO SCH (10:05)
[2022-04-27] MEDS: cefTRIAXone 1,000 MG in 0.9 % Sodium Chloride 10 ML IVP SCH (10:05)
[2022-04-27] MEDS: Azithromycin 250 MG TABLET PO SCH (15:29)
[2022-04-27] MEDS: 0.9 % Sodium Chloride 1,000 ML IVC SCH (18:34)
[2022-04-27] MEDS: Ondansetron 4 MG/2 ML VIAL IVP PRN (20:47)
[2022-04-28 03:17] LABS: Basophils % 0.6 %; Mean Corpuscular Volume 91.2 fL (83.0-100.0); Nucleated Red Blood Cells 0.2 /100 WBC (0); Red Cell Distribution Width 14.5 % (11.5-14.5)
[2022-04-28 03:18] LABS: Basophils # 0.1 K/mcL (0.0-0.2); Eosinophils % 0.2 %; Hematocrit 38.5 % (37.5-50.1); Hemoglobin 13.2 g/dL (12.9-16.9); Immature Granulocytes % 0.6 % (0-4); Immature Platelets 17.3 % (1.1-6.1); Lymphocytes # 1.2 K/mcL (0.6-4.6); Lymphocytes % 10.2 %; Mean Corpuscular HGB Conc 34.3 g/dL (31.6-35.5); Mean Corpuscular Hemoglobin 31.3 pg (28.0-33.3); Monocytes # 0.8 K/mcL (0.0-1.3); Monocytes % 6.9 %; Red Blood Count 4.22 M/mcL (4.19-5.50); Segmented Neutrophils % 81.5 %; White Blood Count 12.2 K/mcL (4.3-11.1)
[2022-04-28 03:30] LABS: Neutrophils # 9.9 K/mcL (1.6-8.9); Platelet Count 94 K/mcL (140-400)
[2022-04-28 03:33] LABS: Calcium 7.8 mg/dL (8.6-10.3); Potassium 4.5 mEq/L (3.5-5.1)
[2022-04-28 04:35] LABS: Estimated Average Glucose 97 mg/dl
[2022-04-28] MEDS ORDERED: Regadenoson 0.4 MG/5 ML SYRINGE IVP ONE (06:29)
[2022-04-28] MEDS: Torsemide 20 MG TABLET PO SCH (09:24)
[2022-04-28] MEDS: Metoprolol XL (24 HR) Succ 25 MG TAB.ER.24H PO SCH (09:24)
[2022-04-28] MEDS: lisinopriL 5 MG TABLET PO SCH (09:25)
[2022-04-28] MEDS: Folic Acid 1 MG TABLET PO SCH (09:25)
[2022-04-28] MEDS: Aspirin Enteric Coated 81 MG Tablet PO SCH (09:25)
[2022-04-28] MEDS: cefTRIAXone 1,000 MG in 0.9 % Sodium Chloride 10 ML IVP SCH (09:27)
[2022-04-28] MEDS: 0.9 % Sodium Chloride 1,000 ML IVC SCH (11:54)
[2022-04-28] MEDS: Azithromycin 250 MG TABLET PO SCH (17:06)
[2022-04-29 03:06] LABS: Hematocrit 36.5 % (37.5-50.1); Hemoglobin 12.8 g/dL (12.9-16.9); Immature Platelets 19.8 % (1.1-6.1); Mean Corpuscular HGB Conc 35.1 g/dL (31.6-35.5); Mean Corpuscular Hemoglobin 31.8 pg (28.0-33.3); Mean Corpuscular Volume 90.6 fL (83.0-100.0); Mean Platelet Volume 14.1 fL (9.4-12.4); Nucleated Red Blood Cells 0.2 /100 WBC (0); Red Blood Count 4.03 M/mcL (4.19-5.50); Red Cell Distribution Width 14.6 % (11.5-14.5); White Blood Count 18.8 K/mcL (4.3-11.1)
[2022-04-29 03:17] LABS: Platelet Count 75 K/mcL (140-400)
[2022-04-29 03:30] LABS: Calcium 7.8 mg/dL (8.6-10.3); Potassium 4.2 mEq/L (3.5-5.1)
[2022-04-29 03:39] LABS: Large Platelets Present (Not Present); Platelet Estimate Decreased (Normal); Poikilocytosis 1+ (Not Present)
[2022-04-29 03:40] LABS: Lymphocytes # 0.4 K/mcL (0.6-4.6); Monocytes # 1.1 K/mcL (0.0-1.3); Neutrophils # 17.3 K/mcL (1.6-8.9); Reactive Lymphocytes Present (Not Present)
[2022-04-29] MEDS ORDERED: *HR* Enoxaparin 40 MG/0.4 ML SYRINGE SQ SCH (06:00)
[2022-04-29] MEDS: cefTRIAXone 1,000 MG in 0.9 % Sodium Chloride 10 ML IVP SCH (09:16)
[2022-04-29] MEDS: Ondansetron 4 MG/2 ML VIAL IVP PRN (09:16)
[2022-04-29] MEDS: Aspirin Enteric Coated 81 MG Tablet PO SCH (09:17)
[2022-04-29] MEDS: Folic Acid 1 MG TABLET PO SCH (09:17)
[2022-04-29] MEDS: Metoprolol XL (24 HR) Succ 25 MG TAB.ER.24H PO SCH (09:17)
[2022-04-29] MEDS: 0.9 % Sodium Chloride 1,000 ML IVC SCH (15:25)
[2022-04-29 15:42] LABS: Uric Acid 8.4 mg/dL (2.3-7.6)
[2022-04-29] MEDS: Azithromycin 250 MG TABLET PO SCH (16:59)
[2022-04-30 01:15] LABS: Nucleated Red Blood Cells 0.3 /100 WBC (0); Red Blood Count 4.21 M/mcL (4.19-5.50)
[2022-04-30 01:17] LABS: Hematocrit 38.4 % (37.5-50.1); Hemoglobin 13.2 g/dL (12.9-16.9); Immature Platelets 21.8 % (1.1-6.1); Mean Corpuscular HGB Conc 34.4 g/dL (31.6-35.5); Mean Corpuscular Hemoglobin 31.4 pg (28.0-33.3); Mean Corpuscular Volume 91.2 fL (83.0-100.0); Mean Platelet Volume 13.8 fL (9.4-12.4); Red Cell Distribution Width 14.7 % (11.5-14.5); White Blood Count 19.7 K/mcL (4.3-11.1)
[2022-04-30 01:28] LABS: Calcium 7.8 mg/dL (8.6-10.3); Magnesium 2.2 mg/dL (1.6-2.6); Potassium 3.9 mEq/L (3.5-5.1)
[2022-04-30 01:39] LABS: Platelet Count 91 K/mcL (140-400)
[2022-04-30 02:17] LABS: Lymphocytes # 4.7 K/mcL (0.6-4.6); Monocytes # 3.6 K/mcL (0.0-1.3); Neutrophils # 11.4 K/mcL (1.6-8.9)
[2022-04-30 02:18] LABS: Platelet Estimate Decreased (Normal)
[2022-04-30] MEDS: Metoprolol XL (24 HR) Succ 25 MG TAB.ER.24H PO SCH (08:28)
[2022-04-30] MEDS: cefTRIAXone 1,000 MG in 0.9 % Sodium Chloride 10 ML IVP SCH (08:28)
[2022-04-30] MEDS: Aspirin Enteric Coated 81 MG Tablet PO SCH (08:28)
[2022-04-30] MEDS: Folic Acid 1 MG TABLET PO SCH (08:28)
[2022-04-30] MEDS: 0.9 % Sodium Chloride 1,000 ML IVC SCH ×2 (08:32→14:24)
[2022-04-30] MEDS: Azithromycin 250 MG TABLET PO SCH (15:56)
[2022-05-01] MEDS: 0.9 % Sodium Chloride 1,000 ML IVC SCH (03:34)
[2022-05-01] MEDS: cefTRIAXone 1,000 MG in 0.9 % Sodium Chloride 10 ML IVP SCH (07:46)
[2022-05-01] MEDS: Metoprolol XL (24 HR) Succ 25 MG TAB.ER.24H PO SCH (07:46)
[2022-05-01] MEDS: Folic Acid 1 MG TABLET PO SCH (07:46)
[2022-05-01] MEDS: Aspirin Enteric Coated 81 MG Tablet PO SCH (07:46)
[2022-05-01 09:54] LABS: Hemoglobin 13.3 g/dL (12.9-16.9)
[2022-05-01 09:56] LABS: Hematocrit 38.9 % (37.5-50.1); Immature Platelets 21.6 % (1.1-6.1); Mean Corpuscular HGB Conc 34.2 g/dL (31.6-35.5); Mean Corpuscular Hemoglobin 31.5 pg (28.0-33.3); Mean Corpuscular Volume 92.2 fL (83.0-100.0); Mean Platelet Volume 13.7 fL (9.4-12.4); Nucleated Red Blood Cells 0.3 /100 WBC (0); Platelet Count 122 K/mcL (140-400); Red Blood Count 4.22 M/mcL (4.19-5.50); Red Cell Distribution Width 15.4 % (11.5-14.5); White Blood Count 23.6 K/mcL (4.3-11.1)
[2022-05-01 10:16] LABS: Calcium 7.7 mg/dL (8.6-10.3); Potassium 3.9 mEq/L (3.5-5.1)
[2022-05-01 10:41] LABS: Anisocytosis 1+ (Not Present); Lymphocytes # 11.8 K/mcL (0.6-4.6); Monocytes # 2.6 K/mcL (0.0-1.3); Neutrophils # 9.2 K/mcL (1.6-8.9)
[2022-05-01 10:42] LABS: Platelet Estimate Slight Decrease (Normal); Poikilocytosis 1+ (Not Present)
[2022-05-01] MEDS: Calcium Gluconate 1gm/50mL 1 GM/50 ML BAG IVPB SCH ×2 (11:45→13:44)
[2022-05-01] MEDS: Piperacillin/Tazobactam 3.375 GM in 0.9 % Sodium Chloride Mini Bag 100 ML IVPB SCH ×2 (11:48→15:48)
[2022-05-02] MEDS: Piperacillin/Tazobactam 3.375 GM in 0.9 % Sodium Chloride Mini Bag 100 ML IVPB SCH ×4 (00:47→23:11)
[2022-05-02 06:47] LABS: Mean Corpuscular HGB Conc 34.2 g/dL (31.6-35.5)
[2022-05-02 06:49] LABS: Eosinophils # 0.2 K/mcL (0.0-0.6); Hematocrit 42.4 % (37.5-50.1); Hemoglobin 14.5 g/dL (12.9-16.9); Immature Platelets 21.1 % (1.1-6.1); Mean Corpuscular Hemoglobin 31.5 pg (28.0-33.3); Mean Corpuscular Volume 92.2 fL (83.0-100.0); Mean Platelet Volume 14.2 fL (9.4-12.4); Nucleated Red Blood Cells 0.3 /100 WBC (0); Platelet Count 141 K/mcL (140-400); Red Cell Distribution Width 15.5 % (11.5-14.5); White Blood Count 23.5 K/mcL (4.3-11.1)
[2022-05-02 07:03] LABS: Calcium 8.1 mg/dL (8.6-10.3); Potassium 3.7 mEq/L (3.5-5.1)
[2022-05-02 08:10] LABS: Lymphocytes # 12.9 K/mcL (0.6-4.6); Monocytes # 2.8 K/mcL (0.0-1.3); Neutrophils # 7.5 K/mcL (1.6-8.9)
[2022-05-02 08:11] LABS: Platelet Estimate Normal (Normal); Poikilocytosis 1+ (Not Present)
[2022-05-02] MEDS: Aspirin Enteric Coated 81 MG Tablet PO SCH (08:39)
[2022-05-02] MEDS: Metoprolol XL (24 HR) Succ 25 MG TAB.ER.24H PO SCH (08:39)
[2022-05-02] MEDS: Folic Acid 1 MG TABLET PO SCH (08:40)
[2022-05-02 10:44] LABS: Bilirubin,Urine Negative (Negative); Blood,Urine Negative (Negative); Clarity,Urine Clear (Clear); Color,Urine Light-Yellow (Yellow); Glucose,Urine (UA) Normal (Normal); Ketones,Urine Trace mg/dL (Negative); Leukocyte Esterase,Urine Negative (Negative); Nitrite,Urine Negative (Negative); Protein,Urine 30 mg/dL (Neg-Trace); RBC,Urine 0-3 per hpf (0-3); Specific Gravity,Urine 1.017 (1.010-1.025); Squamous Epithelial Cell,Urine Few per hpf (None-Few); Urobilinogen,Urine Normal (Normal); WBC,Urine 0-3 per hpf (0-3)
[2022-05-02 11:07] LABS: Sodium, Urine 56.7 mEq/L
[2022-05-03] MEDS: Piperacillin/Tazobactam 3.375 GM in 0.9 % Sodium Chloride Mini Bag 100 ML IVPB SCH (07:44)
[2022-05-03] MEDS: Folic Acid 1 MG TABLET PO SCH (07:44)
[2022-05-03] MEDS: Aspirin Enteric Coated 81 MG Tablet PO SCH (07:44)
[2022-05-03] MEDS: Metoprolol XL (24 HR) Succ 25 MG TAB.ER.24H PO SCH (07:44)
[2022-05-03 09:10] LABS: Calcium 8.1 mg/dL (8.6-10.3); Potassium 3.5 mEq/L (3.5-5.1)
[2022-05-03 09:12] LABS: Mean Corpuscular HGB Conc 33.9 g/dL (31.6-35.5)
[2022-05-03 09:14] LABS: Hematocrit 40.4 % (37.5-50.1); Hemoglobin 13.7 g/dL (12.9-16.9); Immature Platelets 17.8 % (1.1-6.1); Mean Corpuscular Hemoglobin 31.1 pg (28.0-33.3); Mean Corpuscular Volume 91.8 fL (83.0-100.0); Mean Platelet Volume 14.3 fL (9.4-12.4); Nucleated Red Blood Cells 0.2 /100 WBC (0); Platelet Count 154 K/mcL (140-400); Red Cell Distribution Width 15.5 % (11.5-14.5); White Blood Count 21.5 K/mcL (4.3-11.1)
[2022-05-03 10:38] LABS: Eosinophils # 1.7 K/mcL (0.0-0.6); Lymphocytes # 12.9 K/mcL (0.6-4.6); Monocytes # 0.9 K/mcL (0.0-1.3); Platelet Estimate Normal (Normal); Reactive Lymphocytes Present (Not Present)
[2022-05-03 10:39] LABS: Acanthocytes 1+ (Not Present); Poikilocytosis 1+ (Not Present)
[2022-05-03 16:03] VITALS: BP 151/78; PULSE 60; TEMP 98; O2SAT 96
== END 2022-05-03 16:59 | disposition home or self-care (01) | DRG 194 ==
LOC: 3ANU 09:35 → EMEROOARM 09:35 → SUATTDRO 15:43 → 3ANU 17:34
PROVIDERS: ADMIT Hospitalist; ATTEND Family Medicine